=== PATIENT | female | born 1970 | race Caucasian/White ===

== ENCOUNTER → 2020-02-19 10:06 | Outpatient (CLI) | payer BC, SELFPAY | PROVIDERS: PCP Family Medicine; Visit Provider Family Medicine | DX: R55 Syncope and collapse (principal) | CPT/HCPCS: 93225; 93226 ==

== ENCOUNTER → 2020-03-04 10:09 | Outpatient (CLI) | payer BC, SELFPAY ==
[2020-03-04 12:07] LABS: NT Pro Brain Natriuretic Pep. 22.4 pg/mL (0-125)
== END ==
PROVIDERS: Visit Provider Internal Medicine Cardiovascular Disease
DX: R06.00 Dyspnea, unspecified (principal); R42 Dizziness and giddiness; R55 Syncope and collapse; E66.01 Morbid (severe) obesity due to excess calories; F17.200 Nicotine dependence, unspecified, uncomplicated; G47.33 Obstructive sleep apnea (adult) (pediatric); G47.9 Sleep disorder, unspecified; I10 Essential (primary) hypertension; R06.83 Snoring; R40.0 Somnolence; R63.5 Abnormal weight gain
CPT/HCPCS: 36415; 83880

== ENCOUNTER 2021-05-19 09:23 | Emergency (ER) | payer BC, SELFPAY ==
--- NOTE | 2021-05-19 09:29 | XR_ITS ---
PROCEDURE: XR KNEE RT 3V CLINICAL INDICATION: PAIN COMPARISON: No exams were available for comparison FINDINGS: No fracture or dislocation. No lytic or blastic change. There is normal mineralization. There are mild tricompartmental osteoarthritic changes. Other findings:None. IMPRESSION: Osteoarthritis otherwise negative Dictated by: Jameel Grimes MD 05/19/2021 10:01 Jameel Grimes MD in [place] 05/19/2021 10:01
[2021-05-19 10:24] VITALS: BP 130/82; PULSE 101; RESP 18; TEMP 36.7; O2SAT 98; BMI 50.2
--- NOTE | 2021-05-19 10:38 | HMH.EDUTC ---
[facility] [place] Disposition Clinical Impression: Knee sprain Qualifiers: Encounter type: initial encounter Involved ligament of knee: other ligament Laterality: right Qualified Code(s): S83.8X1A - Sprain of other specified parts of right knee, initial encounter Disposition: Home, Self-Care Condition on Discharge: Good Instructions: How to Use an Elastic Bandage-Knee Sprain, DI for Knee Sprain Additional Instructions: *weight bearing as tolerated *RICE, Rest the extremity, Ice 15-20 minutes 3-4 times daily, Compress- wear the frederick wrap as discussed as much as possible to help reduce swelling and pain, Elevate the extremity when at rest *[place]er[place] wrap is for support and help control swelling, use it except in the shower. Be sure that is not to tight but not to loose either *Elevate when resting *Ibuprofen as directed on package every 6-8 hours as needed for pain an inflammation. If need something more can take Tylenol in between doses of Ibuprofen to help Immediately follow up with your family doctor for new or worsening of symptoms, or no noticeable improvement over the next 3-5 days Referrals: Gilmer Romero MD [Primary Care Provider] - As needed Forms: Work/School Release Time of Disposition: 10:47 Medical Decision Making - Se Inquiry Pt receiving controlled substance: No Se was queried for this patient: No Vital Signs: 05/19/21 10:24 05/19/21 11:03 Temperature 98.1 F 98.4 F Temperature Source Oral Oral Pulse Rate 76 Pulse Rate [Right] 101 H Respiratory Rate 18 18 Blood Pressure 132/71 Blood Pressure [Right Arm] 130/82 Blood Pressure Mean [Right Arm] 98 02 Sat by Pulse Oximetry 98 Oxygen Delivery Method Room Air Room Air - Radiology Data #1 Image(s): Knee Image Reviewed: Yes I have reviewed radiologist's interpretation Osteoarthritis otherwise negative [facility] [place] HPI - General Stated complaint: AO [id number] RIGHT KNEE PAIN HOME ACCIDENT Time Seen by Provider: 05/19/21 10:39 Mode of Arrival: Ambulatory Source of Information: Patient Limitations: No Limitations Description of Symptoms (Recalled from Triage Doc. by RN): Patient reports right knee pain. Patient reports she twisted her right knee three days ago. Patient ambulatory back to [facility] room. HEENT Symptoms (Recalled from RN notes): No Resp Symptoms (Recalled from RN notes): No Skin Symptoms (Recalled from RN notes): No MS Symptoms (Recalled from RN notes): Yes Functional Status (Recalled from RN notes): na - History of Present Illness Provider Complaint: Patient state that she twisted her right knee a few weeks ago State that ever since she has been having pain and swelling when she walks or raises her leg State that she come in today to get xray to see if anything may be broken - Related Data Home Medications Medication Instructions Recorded Confirmed Furosemide [Lasix 40mg tab] 40 mg PO DAILY 12/22/17 03/04/20 Albuterol Sulfate [Albuterol 2.5 mg IH DAILY 09/26/19 03/04/20 0.083% 2.5mg/3mL neb] Albuterol Sulfate [Ventolin HFA 1 puff IH DAILY 09/26/19 03/04/20 Inhaler] budesonide-formoterol HFA 160 2 puff INHALATION DAILY g 03/04/20 03/04/20 mcg-4.5 mcg/actuation aerosol inhaler Previous Rx's Medication Instructions Recorded Cyclobenzaprine HCl 5 mg PO Q8H PRN 10 Days #30 tab 12/08/19 [Cyclobenzaprine 5mg Tab] lisinopril 20 mg tablet 20 mg PO DAILY #30 tab 03/04/20 Allergies Allergy/AdvReac Type Severity Reaction Status Date / Time No Known Drug Allergies Allergy Unknown Verified 03/04/20 08:55 [NO KNOWN DRUG ALLERGIES] - Worker's Comp Is this a Worker's Comp case?: No Is this an H Worker's Comp?: No Is this a [place] Worker's Comp?: No [facility] History - Hepatitis A Screen Drug use history?: No High risk sexual behaviors?: No History of sexually transmitted infection?: No Currently employed?: No Childcare worker?: No Do you have indoor plumbing?: Yes Do you have electricity?: Yes A
[2021-05-19 11:03] VITALS: BP 132/71; PULSE 76; RESP 18; TEMP 36.9; O2SAT 96
== END 2021-05-19 11:05 | disposition home or self-care (01) ==
PROVIDERS: Emergency Provider Nurse Practitioner; PCP Family Medicine
DX: S83.8X1A Sprain of other specified parts of right knee, initial encounter (principal); X50.1XXA Overexertion from prolonged static or awkward postures, initial encounter; Y92.019 Unspecified place in single-family (private) house as the place of occurrence of the external cause; I10 Essential (primary) hypertension; J45.909 Unspecified asthma, uncomplicated; F17.210 Nicotine dependence, cigarettes, uncomplicated; Z79.899 Other long term (current) drug therapy
CPT/HCPCS: 73562; 99202; G0463

== ENCOUNTER 2021-10-14 19:27 | Emergency (ER) | payer BC, SELFPAY ==
[2021-10-14 19:29] VITALS: BP 135/98; PULSE 83; RESP 18; TEMP 36.8; O2SAT 97; BMI 59.1
--- NOTE | 2021-10-14 20:13 | CT_ITS ---
PROCEDURE INFORMATION: Exam: CT Abdomen And Pelvis With Contrast Exam date and time: 10/14/2021 8:13 PM Age: 51 years old Clinical indication: Abdominal pain; Localized; Right; Prior surgery; Surgery date: 6+ months; Surgery type: Gb; Additional info: Abd pain ruq and rlq TECHNIQUE: Imaging protocol: Computed tomography of the abdomen and pelvis with contrast. Radiation optimization: All CT scans at this facility use at least one of these dose optimization techniques: automated exposure control; mA and/or kV adjustment per patient size (includes targeted exams where dose is matched to clinical indication); or iterative reconstruction. Contrast material: ISOVUE; Contrast volume: 75 ml; Contrast route: IV; COMPARISON: CR XR LUMBAR SPINE 2-3V 12/08/2019 11:41 AM FINDINGS: Liver: Mild diffuse low-attenuation of the liver. No mass. Gallbladder and bile ducts: Post cholecystectomy change. Pancreas: Normal enhancement. No ductal dilation. Spleen: No splenomegaly. Adrenal glands: No mass. Kidneys and ureters: 9.1 cm left renal cyst. No hydronephrosis. Stomach and bowel: Examination is limited by technique and body habitus. Diverticulosis coli without evidence for diverticulitis. Potential mild induration of the pericecal fat. Appendix: No evidence of appendicitis. Intraperitoneal space: No free air. No significant fluid collection. Vasculature: Mild calcified atherosclerosis. No abdominal aortic aneurysm. Lymph nodes: No enlarged lymph nodes. Urinary bladder: No acute abnormality. Reproductive: No acute abnormality. Bones/joints: No acute fracture. Soft tissues: Suspected mild subcutaneous edema. IMPRESSION: 1. Diverticulosis coli without evidence for diverticulitis. 2. Potential mild induration of the pericecal fat which is difficult to evaluate secondary to technique. Mild colitis should be clinically excluded. If symptoms persist follow-up imaging may be warranted.
[2021-10-14 20:25] LABS: Basophils # 0.1 K/mm3 (0-0.2); Eosinophils # 0.1 K/mm3 (0.0-0.4); Eosinophils % 1.4 % (0.1-12.0); Hematocrit 39.7 % (37.0-47.0); Hemoglobin 12.6 g/dL (12.2-16.2); Lymphocytes # 1.8 K/mm3 (0.7-4.5); Lymphocytes % 22.5 % (10-50); Mean Corpuscular HGB Conc 31.8 g/dL (31.8-35.4); Mean Corpuscular Volume 88.2 fl (81-99); Mean Platelet Volume 10.4 fl (7.4-10.4); Monocytes # 0.6 K/mm3 (0.1-1.0); Monocytes % 7.4 % (1.7-9.3); Neutrophils # 5.4 K/mm3 (1.8-7.8); Neutrophils % 67.7 % (37.0-80.0); Platelet Count 215 K/mm3 (142-424); Red Cell Distribution Width 16.6 % (11.5-17.5)
[2021-10-14 20:29] LABS: Amylase 39 U/L (30-110)
[2021-10-14 20:30] LABS: Alanine Aminotransferase 23 U/L (12-78); Albumin Level 3.8 g/dl (3.5-5.0); Albumin/Globulin Ratio 1.2 (1.1-1.8); Alkaline Phosphatase 89 U/L (38-126); Anion Gap 8.7 mEq/L (5-15); Aspartate Amino Transferase 26 U/L (14-36); Bilirubin,Total 0.8 mg/dl (0.2-1.3); Blood Urea Nitrogen 10 mg/dl (7-17); Calcium 8.8 mg/dl (8.4-10.2); Carbon Dioxide 33 mmol/L (22.0-30.0); Chloride 96 mmol/L (98-107); Creatinine Clearance Estimated 90 mL/min (50-200); Estimated Glomerular Filt Rate 89 ml/min (>60); GFR (African American) 107 ML/MIN (>60); Globulin 3.2 g/dL (1.3-3.2); Glucose 98 mg/dl (74-100); Lipase 31 U/L (23-300); Potassium 3.7 mmoL/L (3.5-5.1); Sodium 134 mmol/L (136-145)
--- NOTE | 2021-10-14 20:33 | HMH.EDNVD ---
ED Disposition Clinical Impression: Sphincter of Oddi dysfunction Abdominal pain Qualifiers: Abdominal location: epigastric Qualified Code(s): R10.13 - Epigastric pain Disposition: Home, Self-Care Condition on Discharge: Good Instructions: DI for Acute Abdominal Pain Additional Instructions: use meds andf call pcp for follow up Prescriptions: Dicyclomine HCl [Bentyl 10mg capsule] 10 mg PO TID #15 cap Transmission Status: Pending to [id number] Referrals: Gilmer Romero MD [Primary Care Provider] - - Critical Care Critical Care Time: No Attestation: On 10/14/21, the high probability of a clinically significant, sudden or life threatening deterioration of the following system(s) required my full and direct attention, intervention and personal management. The time I documented below is in addition to time spent performing reported procedures but includes the following listed in this critical care notation. Medical Decision Making - Medical Records Medical records reviewed: Yes: I reviewed the patient's medical records. - Se Inquiry Pt receiving controlled substance: No Vital Signs: 10/14/21 19:29 Temperature 98.3 F Temperature Source Oral Pulse Rate [Right] 83 Respiratory Rate 18 Blood Pressure [Right Arm] 135/98 H Blood Pressure Mean [Right Arm] 110 Blood Pressure Source [Right Arm] Automatic Cuff 02 Sat by Pulse Oximetry 97 Oxygen Delivery Method Room Air - Lab Data Lab results reviewed: Yes: I reviewed the patient's lab results. Lab Results 10/14/21 19:55: ESR 19 10/14/21 19:55: C-Reactive Protein 59.1 H, Amylase 39, Procalcitonin < 0.030 10/14/21 19:55: WBC 8.0, RBC 4.50, Hgb 12.6, Hct 39.7, MCV 88.2, MCH 28.0, MCHC 31.8, RDW 16.6, Plt Count 215, MPV 10.4, Neut % (Auto) 67.7, Lymph % (Auto) 22.5, [place] % (Auto) 7.4, Eos % (Auto) 1.4, Baso % (Auto) 1.0, Neut # (Auto) 5.4, Lymph # (Auto) 1.8, [place] # (Auto) 0.6, Eos # (Auto) 0.1, Baso # (Auto) 0.1 10/14/21 19:55: Sodium 134 L, Potassium 3.7, Chloride 96 L, Carbon Dioxide 33 H, Anion Gap 8.7, BUN 10, Creatinine 0.70, Estimated Creat Clear 90, Estimated GFR 89, Est GFR ( Amer) 107, Glucose 98, Calcium 8.8, Total Bilirubin 0.8, AST 26, ALT 23, Alkaline Phosphatase 89, Total Protein 7.0, Albumin 3.8, Globulin 3.2, Albumin/Globulin Ratio 1.2, Lipase 31 10/14/21 21:08: Urine Color Straw, Urine Appearance Clear, Urine pH 6.5, Ur Specific [place] <= 1.005, Urine Protein Negative, Urine Glucose (UA) Negative, Urine Ketones Negative, Urine Blood Negative, Urine Nitrate Negative, Urine Bilirubin Negative, Urine Urobilinogen 0.2, Ur Leukocyte Esterase Negative, Ur Squamous Epith Cells 5-10, Amorphous Sediment Trace Result diagrams: 10/14/21 19:55 10/14/21 19:55 Orders (Tests/Meds): ED MEDICATIONS Generic Name Dose Route Start Last Admin Trade Name Freq PRN Reason Stop Dose Admin Sodium Chloride 1,000 mls @ 999 mls/hr 10/14/21 20:15 10/14/21 20:25 Sod Chlor 0.9% 1000ml Bag IV 10/14/21 21:15 999 mls/hr .Q1H1M EDMOND Administration Sodium Chloride 8 ml 10/14/21 20:13 Sodium Chloride 0.9% 10ml Vial IV 11/13/21 20:12 NEEDED PRN dilute pepcid Discontinued Medications Generic Name Dose Route Start Last Admin Trade Name Freq PRN Reason Stop Dose Admin Famotidine 20 mg 10/14/21 20:13 10/14/21 20:25 Famotidine 20mg/2ml Vial IV 10/14/21 20:14 20 mg ONCE ONE Administration Iopamidol 75 ml 10/14/21 20:46 10/14/21 20:49 Iopamidol-370 (76%);100ml Bottle IV 10/14/21 20:47 75 ml ONCE ONE Administration Ketorolac Tromethamine 30 mg 10/14/21 20:13 10/14/21 20:25 Ketorolac 30mg/Ml Vial IV 10/14/21 20:14 30 mg ONCE ONE Administration Metoclopramide HCl 10 mg 10/14/21 20:13 10/14/21 20:25 Metoclopramide Hcl 10mg/2ml Vial IVP 10/14/21 20:14 10 mg ONCE ONE Administration Ondansetron HCl 4 mg 10/14/21 20:13 10/14/21 20:25 Ondansetron 4mg/2ml Vial IV 10/14/21 20:1
[2021-10-14 20:35] LABS: C-Reactive Protein 59.1 mg/L (0-4)
[2021-10-14 20:49] LABS: Procalcitonin < 0.030 ng/mL (0.0-2.0)
[2021-10-14 20:51] LABS: Erythrocyte Sedimentation Rate 19 mm/hr (0-20)
[2021-10-14 21:11] LABS: Microscopic, Urine URINE MICROSCOPIC (MICROSCOPIC)
[2021-10-14 21:16] LABS: Appearance,Urine CLEAR (Clear); Bilirubin,Urine Negative (Negative); Blood, Urine Negative (Negative); Color,Urine STRAW (Yellow); Glucose,Urine (UA) Negative (Negative); Ketones,Urine Negative (Negative); Leukocyte Esterase,Urine Negative (Negative); Nitrate,Urine Negative (Negative); PH,Urine 6.5 (5.0-8.5); Protein,Urine Negative (Negative); Specific Gravity, Urine <= 1.005 (1.005-1.030); Urobilinogen,Urine 0.2 EU/dl (0.2)
[2021-10-14 21:26] LABS: Amorphous Sediment,Urine Trace /lpf
[2021-10-14 21:56] VITALS: BP 130/90; PULSE 80; RESP 20; TEMP 36.8; O2SAT 99
== END 2021-10-14 21:58 | disposition home or self-care (01) ==
PROVIDERS: Emergency Provider Emergency Medicine; PCP Family Medicine
DX: K83.4 Spasm of sphincter of Oddi (principal); I10 Essential (primary) hypertension; J45.909 Unspecified asthma, uncomplicated; F17.210 Nicotine dependence, cigarettes, uncomplicated
CPT/HCPCS: 74177; 80053; 81001; 82150; 83690; 84145; 85025; 85651; 86140; 96365; 96375; 99283; J2405; Q9967

== ENCOUNTER → 2021-12-06 14:56 | Outpatient (CLI) | payer BC, SELFPAY ==
--- NOTE | 2021-12-06 15:00 | US_ITS ---
FINAL REPORT CLINICAL HISTORY: US TV [employer] for Heavy Bleeding FINDINGS: Transvaginal sonographic images of the pelvis were obtained. The uterus is enlarged measuring 10.2 x 5.0 x 5.7 cm. The endometrium measures 11 mm, which is at the upper limits of normal. No uterine mass is identified. The right ovary measures 2.8 cm cm in length and left ovary measures 2.1 cm cm in length. Normal blood flow seen to the ovaries. There is a 1.8 cm presumed right ovarian cyst and a 1.6 cm presumed left ovarian cyst. There is no evidence of free fluid. IMPRESSION: Enlarged uterus. Endometrium measures at the upper limits of normal. Presumed bilateral ovarian cysts. Reviewed, Interpreted and Dictated by Nawaf Yost III, MD Transcribed by Amelia Reilly Authenticated by Nawaf Yost III, MD on 12/06/2021 04:41:46 PM [facility]
== END ==
LOC: RAD 14:57
PROVIDERS: PCP Family Medicine; Visit Provider Nurse Practitioner Obstetrics & Gynecology
DX: N92.0 Excessive and frequent menstruation with regular cycle (principal)
CPT/HCPCS: 76830

== ENCOUNTER 2021-12-21 17:03 | Emergency (ER) | payer BC, SELFPAY ==
--- NOTE | 2021-12-21 17:39 | XR_ITS ---
PROCEDURE INFORMATION: Exam: XR Chest Exam date and time: 12/21/2021 5:37 PM Age: 51 years old Clinical indication: Cough and fever; Patient HX: Smoker, fever; Additional info: Cough, congestion TECHNIQUE: Imaging protocol: XR of the chest. Views: 2 views. COMPARISON: CR XR CHEST 2V 09/26/2019 9:54 AM FINDINGS: Lungs: Unremarkable. No consolidation. Pleural spaces: Unremarkable. No pleural effusion. No pneumothorax. Heart/Mediastinum: Unremarkable. No cardiomegaly. Bones/joints: Unremarkable. IMPRESSION: No acute findings.
--- NOTE | 2021-12-21 18:47 | HMH.EDUTC ---
[facility] [place] Clinical Impression: Strep throat, Bronchitis Disposition: Home, Self-Care Condition on Discharge: Good Instructions: Strep Throat, DI for Strep Throat Additional Instructions: Drink plenty of fluids. Take tylenol or ibuprofen for pain or fever. Take the medications as directed. Follow up with your regular doctor. GO TO THE ER FOR ANY WORSENING SYMPTOMS Throw your tooth brush away and get a new one. Quarantine until you know the results of your covid-19 test. Notify your school or workplace of your results and follow their instructions regarding return to work/school. Don't start the oral steroids until tomorrow, since you had the shot here today. The cough medication (promethazine dm) will make you drowsy, so don't drive or operate heavy machinery after taking it. The pyridium will make your urine turn orange, this is an expected side effect. It will stain your clothes if it comes into contact with them. We will culture the urine. That will tell what bacteria is causing your infection and which antibiotics will treat it best. Sometimes the first antibiotic we prescribe turns out to not work against different bacteria. So, make sure you follow up within 3 days if you are not getting better. Prescriptions: Promethazine/Dextromethorphan [Promethazine-Dm Syrup] 5 ml PO Q6HP PRN #240 ml PRN Reason: Cough Transmission Status: Received by [id number] Amoxicillin/Potassium Clav [Amox-Clav 875-125 mg Tablet] 1 tab PO BID #20 tab Transmission Status: Received by [facility] Benzonatate [Benzonatate 100mg cap] 100 mg PO TIDP PRN #30 cap PRN Reason: Cough Transmission Status: Received by [facility] methylPREDNISolone [Medrol] 4 mg PO DIRECTED 6 Days #21 packet Transmission Status: Received by [facility] Referrals: Mae Johnson APRN [Primary Care Provider] - Forms: Work/School Release Time of Disposition: 19:24 Medical Decision Making - Medical Records Medical records reviewed: No: I reviewed the patient's medical records. - Se Inquiry Pt receiving controlled substance: No Vital Signs: 12/21/21 18:55 12/21/21 19:35 Temperature 97.7 F 97.7 F Temperature Source Oral Pulse Rate 106 H Pulse Rate [Left] 106 H Respiratory Rate 22 Blood Pressure 106/69 L Blood Pressure [Right Arm] 106/69 L Blood Pressure Mean [Right Arm] 81 02 Sat by Pulse Oximetry 96 - Lab Data Lab results reviewed: Yes: I reviewed the patient's lab results. Lab Results 12/21/21 18:44: Influenza Type A Ag Negative, Influenza Type B Ag Negative 12/21/21 18:45: Group A Strep Rapid Positive A Orders (Tests/Meds): ED MEDICATIONS Discontinued Medications Generic Name Dose Route Start Last Admin Trade Name Jeronimo PRN Reason Stop Dose Admin Ceftriaxone Sodium 1 gm 12/21/21 19:22 12/21/21 19:34 Ceftriaxone 1gm Vial IM 12/21/21 19:23 1 gm ONCE ONE Administration Lidocaine HCl 0 ml 12/21/21 19:22 12/21/21 19:34 Lidocaine 1% 5ml Pf Vial IM 12/21/21 19:23 2 ml ONCE ONE Administration Methylprednisolone Sodium Succinate 125 mg 12/21/21 19:22 12/21/21 19:34 Methylprednisolone Sod Succ 125mg Vial IM 12/21/21 19:23 125 mg ONCE ONE Administration [facility] [place] - General Stated complaint: tight chest, possible pneumona Time Seen by Provider: 12/21/21 18:47 - History of Present Illness Provider Complaint: She c/o cough and congestion and feeling bad for the past 1 week. - Related Data Home Medications Medication Instructions Recorded Confirmed Furosemide [Lasix 40mg tab] 40 mg PO DAILY 12/22/17 12/16/21 Albuterol Sulfate [Albuterol 2.5 mg IH DAILY 09/26/19 12/16/21 0.083% 2.5mg/3mL neb] Albuterol Sulfate [Ventolin HFA 1 puff IH DAILY 09/26/19 12/16/21 Inhaler] aspirin 81 mg tablet,delayed 81 mg PO DAILY 12/02/21 12/16/21 release escitalopram oxalate 10 mg table
[2021-12-21 18:55] VITALS: BP 106/69; PULSE 106; RESP 22; TEMP 36.5; O2SAT 96; BMI 57.7
[2021-12-21 18:58] LABS: Strep Scrn Group A (Rapid) Positive (Negative)
[2021-12-21 19:07] LABS: UTC Influenza A Antigen Negative (Negative); UTC Influenza B Antigen Negative (Negative)
[2021-12-21 19:35] VITALS: BP 106/69; PULSE 106; RESP 22; TEMP 36.5
== END 2021-12-21 19:49 | disposition home or self-care (01) ==
PROVIDERS: Emergency Provider Nurse Practitioner Family; PCP Nurse Practitioner Family
DX: J02.0 Streptococcal pharyngitis (principal); J20.9 Acute bronchitis, unspecified; J45.909 Unspecified asthma, uncomplicated; I10 Essential (primary) hypertension; F17.210 Nicotine dependence, cigarettes, uncomplicated
CPT/HCPCS: 71046; 87430; 87804; 96372; 99213; G0463; J0696

== ENCOUNTER → 2022-01-07 10:56 | Outpatient (CLI) | payer BC, SELFPAY ==
[2022-01-07 11:32] LABS: Basophils # 0.1 K/mm3 (0-0.2); Basophils % 0.9 % (0.1-2.0); Eosinophils # 0.1 K/mm3 (0.0-0.4); Eosinophils % 1.5 % (0.1-12.0); Hematocrit 45.3 % (37.0-47.0); Hemoglobin 14.2 g/dL (12.2-16.2); Lymphocytes # 1.6 K/mm3 (0.7-4.5); Lymphocytes % 23.7 % (10-50); Mean Corpuscular HGB Conc 31.3 g/dL (31.8-35.4); Mean Corpuscular Hemoglobin 27.8 pg (27.0-31.2); Mean Corpuscular Volume 89.1 fl (81-99); Mean Platelet Volume 10.1 fl (7.4-10.4); Monocytes # 0.5 K/mm3 (0.1-1.0); Monocytes % 7.4 % (1.7-9.3); Neutrophils # 4.4 K/mm3 (1.8-7.8); Neutrophils % 66.5 % (37.0-80.0); Platelet Count 226 K/mm3 (142-424); Red Blood Count 5.09 M/mm3 (4.20-5.40); Red Cell Distribution Width 16.3 % (11.5-17.5); White Blood Count 6.5 K/mm3 (4.8-10.8)
[2022-01-07 12:13] LABS: Anion Gap 6.3 mEq/L (5-15); Blood Urea Nitrogen 10 mg/dl (7-17); Calcium 8.5 mg/dl (8.4-10.2); Carbon Dioxide 32 mmol/L (22.0-30.0); Chloride 101 mmol/L (98-107); Estimated Glomerular Filt Rate 131 ml/min (>60); GFR (African American) 158 ML/MIN (>60); Glucose 85 mg/dl (74-100); Potassium 4.3 mmoL/L (3.5-5.1); Sodium 135 mmol/L (136-145)
[2022-01-09 13:21] LABS: HCG Qualitative, Serum Negative (Negative)
== END ==
PROVIDERS: PCP Family Medicine; Visit Provider Nurse Practitioner Obstetrics & Gynecology
DX: Z01.818 Encounter for other preprocedural examination (principal); N92.0 Excessive and frequent menstruation with regular cycle; Z11.52 Encounter for screening for COVID-19
CPT/HCPCS: 36415; 80048; 84703; 85025; C9803; U0003; U0005

== ENCOUNTER 2022-01-10 06:08 | Day surgery (SDC) | payer BC, SELFPAY ==
[2022-01-09 12:17] VITALS: BMI 57.4
[2022-01-10] VITALS (11 sets, daily range): BP systolic 117–161; BP diastolic 67–97; PULSE 68–88; RESP 12–18; TEMP 36.5–36.6; O2SAT 94–98
--- NOTE | 2022-01-10 07:06 | HMH.ANESCL ---
[facility] Anesthesia Checklist - Patient Identification Patient Identification: Arm Band - Structural Data Admitted From: Home Planned Operative Procedure/s: Hyst/D & C/ Novasure Consent for Planned Operative Procedure(s) Verified: Yes - NPO Status Verified Time NPO: 00:00 - Additional verifications Anesthesia Reactions: No Hx Blood Transfusions: No Blood Transfusion Reaction: No - Airway Assessment C-Spine Mobility Assessed: Yes TMJ Mobility Assessed: Yes Dentition: Dentures-good fit - Neurological Assessment Level of Consciousness: Awake Hx Seizures: No Numbness or tingling in extremities: No - Anesthesia Plan Anesthesia Risk discussed: Yes Anesthesia Plan: Verified ASA Class: II Anesthesia Type: General [facility] History I have reviewed the patient's past medical history: Yes Medical History: Reports:: Asthma, Hypertension Denies:: Cancer, Diabetes Mellitus Type 1, Diabetes Mellitus Type 2, Internal Pacemaker, MRSA, Seizures *Have you ever received a pneumonia vaccine?: Yes *Have you received a flu vaccine this season?: Yes Other Medical History: Reports: Arthritis, Other. Denies: Blood Transfusion Reaction Anesthesia experience/problems:: None Other Surgeries: Yes: No Previous Surgery. No: Pacemaker Amputation: No Fractures: No - *Social History Last grade of school completed: Advanced degree Smoking Status: Current every day smoker Tobacco Type: cigarettes # Packs/Day (cigarettes): 1 Alcohol Intake: never Alcohol Intake Frequency:: other Substance Use Type: denies use *Occupational Status:: employed Housing: house Household Members: significant other *Travel in the last 8 weeks: None Family Hx:: No significant family history REEL MAN history: Abnormal Uterine Bleeding
--- NOTE | 2022-01-10 07:55 | P.OP_ITS ---
Date of procedure: 01/10/22 Pre-op Diagnosis:: Menorrhagia Post-op Diagnosis:: Menorrhagia Procedure performed:: Hysteroscopy, dilation and curettage, NovaSure ablation Surgeon:: Perez Fong MD SPECTACLE TRUER:: Ellie Jackson Anesthesia: LMA Estimated blood loss (mL): 50 Clinical Note:: She is a 51-year-old lady who complains of extremely heavy periods. She had an endometrial ablation that was negative for hyperplasia or endometrial carcinoma. As result of that she is offered hysteroscopy, D&C and NovaSure ablation. Operative findings:: She had an anteverted uterus that sounded to 9 cm. The endometrial cavity appeared lush but otherwise normal. There were no polyps or any other abnormalities. The length of the endometrial cavity was 6.5 cm and the width was 4.6 cm. Operative note:: She was taken to the operating room where LMA anesthesia was found be adequate. She was prepped and draped in the normal sterile fashion in the lithotomy position. A weighted speculum was placed in the vagina and the anterior lip of the cervix was grasped with a tenaculum. The cervix was then dilated to approximately 6 mm. I then inserted a hysteroscope into the uterine cavity and the findings were as previously dictated. I then performed a gentle curettage with a medium curette. I then sounded the uterus and determine the length of the uterus. I then inserted the NovaSure device and determine the width of the endometrial cavity. The length of the endometrial cavity was 6.5 cm and the width was 4.6 cm. This was placed into the NovaSure device. I then ran the device through its program. I further inspected the endometrial cavity and was found to be completely charred. I then injected 20 cc of 0.5% ropivacaine at the 3:00, 5:00, 7:00, and 9:00 positions of the cervix. She tolerated procedure well and was taken to the recovery room in excellent condition. All sponge and instrument counts were correct. The estimated blood loss was less than 50 cc. Condition: stable Disposition: PACU Specimens:: Endometrial curettings Complications:: None
--- NOTE | 2022-01-10 08:01 | HMH.ANESI ---
[facility] [place] Anesthesia Record Part I Intake, IV Amount: 500 Estimated blood loss (mL): 50 Urine output (mL): 0 Blood Pressure: 146/97 SaO2: 94 Pulse Rate: 71 Respiratory Rate: 13 Temperature: 97.7 F Patient is:: Drowsy, Oral/Nasal airway Stable to PACU at:: 07:59
--- NOTE | 2022-01-10 08:05 | PC.NURSE ---
Pt arrived to PACU with oral airway noted, patients airway remains patent.
--- NOTE | 2022-01-10 08:11 | PC.NURSE ---
Oral airway removed, airway remains patent.
--- NOTE | 2022-01-10 11:05 | P.PN_ITS ---
[facility] Anesthesia Record Part II Discharge Time: 08:29 Destination: Surgical Day Care (OP Surgery) PACU nurse assessment reviewed?: Yes Patient Condition:: Good Anesthesia Complications:: None Swallowing reflex intact?: Yes Cyanosis?: No Blood Pressure: 155/89 Pulse Rate: 69 Temperature: 97.7 F Mental Status: Alert & Oriented Pain level:: 0 Nausea and/or vomitting:: None Intake, IV Amount: 0
== END 2022-01-10 09:05 | disposition home or self-care (01) ==
LOC: OR 06:09
PROVIDERS: PCP Family Medicine; Visit Provider Nurse Practitioner Obstetrics & Gynecology
PROC: 0U5B8ZZ Destruction of Endometrium, Via Natural or Artificial Opening Endoscopic (ICD-10-PCS; CPT 58563; principal; 2022-01-10 07:30)
DX: N92.0 Excessive and frequent menstruation with regular cycle (principal); N85.2 Hypertrophy of uterus; J45.909 Unspecified asthma, uncomplicated; I10 Essential (primary) hypertension; M19.90 Unspecified osteoarthritis, unspecified site; Z72.0 Tobacco use; Z79.82 Long term (current) use of aspirin; Z79.899 Other long term (current) drug therapy
CPT/HCPCS: 58563; 96374; J2405

== ENCOUNTER 2022-01-16 05:07 | Inpatient (IN) | payer BC, SELFPAY ==
[2022-01-16] VITALS (19 sets, daily range): BP systolic 102–153; BP diastolic 56–88; PULSE 42–90; RESP 16–30; TEMP 36.4–37.1; O2SAT 88–98; BMI 53.2; BMI 56.0
--- NOTE | 2022-01-16 05:20 | ECG_ITS ---
APPROVED REPORT Exam: Resting ECG HR:88 bpm ECG Measurements Heart Rate 88 AXES AK 154 P 79 QRSd 100 QRS 78 QT 377 T 76 QTc 423 Conclusion SINUS RHYTHM WITH PVCs in a bigeminy pattern Left atrial abnormality Late R wave progression ABNORMAL RHYTHM ECG UNCONFIRMED REPORT Electronically signed by : Gilmer Ferrer MD 01/19/2022 08:11:12
--- NOTE | 2022-01-16 05:56 | CT_ITS ---
PROCEDURE INFORMATION: Exam: CTA Chest With Contrast Exam date and time: 01/16/2022 6:37 AM Age: 51 years old Clinical indication: Shortness of breath; Additional info: SOA TECHNIQUE: Imaging protocol: Computed tomographic angiography of the chest with contrast. 3D rendering (Not supervised by radiologist): MIP and/or 3D reconstructed images were created by the technologist. Radiation optimization: All CT scans at this facility use at least one of these dose optimization techniques: automated exposure control; mA and/or kV adjustment per patient size (includes targeted exams where dose is matched to clinical indication); or iterative reconstruction. Contrast material: ISOVUE 370; Contrast volume: 70 ml; Contrast route: INTRAVENOUS (IV); COMPARISON: CR XR CHEST 2V 12/21/2021 5:37 PM FINDINGS: Pulmonary arteries: The peripheral pulmonary arteries are suboptimally evaluated/opacified. Otherwise, no evidence of a pulmonary embolus. Aorta: No aortic aneurysm. No aortic dissection. Lungs: Small calcified granuloma in the left lung. No focal consolidation. Pleural spaces: No pneumothorax. No pleural eff. Heart: Borderline cardiomegaly. There is slight reflux of contrast into the hepatic veins and IVC, which could suggest some degree of heart failure. Lymph nodes: Calcified right hilar lymph nodes, compatible with old granulomatous disease. Gallbladder and bile ducts: Cholecystectomy. Adrenal glands: Mild nonspecific thickening of the adrenal glands. Kidneys and ureters: Partially imaged left renal cyst measuring up to 8.2 x 7.2 cm. Bones/joints: Degenerative changes of the spine. Soft tissues: Unremarkable. Other findings: usion. IMPRESSION: 1. No evidence of a pulmonary embolus or active pulmonary process. 2. Partially imaged left renal cyst measuring up to 8.2 x 7.2 cm. 3. Old granulomatous disease. 4. There is slight reflux of contrast into the hepatic veins and IVC, which could suggest some degree of heart failure. COMMENTS: Consistent with the [employer]'s Incidental Findings Committee white paper (J Am Yannick Radiol 2018): Any incidental renal lesion less than 1 cm or classified as too small to characterize, or any incidental cystic renal lesion characterized as simple-appearing, is likely benign. No follow-up imaging is recommended for these lesions per consensus recommendations based on imaging criteria.
--- NOTE | 2022-01-16 05:57 | XR_ITS ---
PROCEDURE INFORMATION: Exam: XR Chest Exam date and time: 01/16/2022 6:38 AM Age: 51 years old Clinical indication: Shortness of breath; Patient HX: SOA, chest pain TECHNIQUE: Imaging protocol: XR of the chest. Views: 2 views. COMPARISON: CT ANGIO CHEST PE PROTOCOL 01/16/2022 6:37 AM FINDINGS: Lungs: Unremarkable. No consolidation. Pleural spaces: Unremarkable. No pleural effusion. No pneumothorax. Heart/Mediastinum: Unremarkable. No cardiomegaly. Bones/joints: Mild spondylosis. IMPRESSION: No acute process.
[2022-01-16 06:06] LABS: Basophils # 0.1 K/mm3 (0-0.2); Basophils % 1.3 % (0.1-2.0); Eosinophils # 0.2 K/mm3 (0.0-0.4); Hematocrit 43.2 % (37.0-47.0); Hemoglobin 13.8 g/dL (12.2-16.2); Lymphocytes # 1.6 K/mm3 (0.7-4.5); Lymphocytes % 27.7 % (10-50); Mean Corpuscular HGB Conc 31.8 g/dL (31.8-35.4); Mean Corpuscular Hemoglobin 27.9 pg (27.0-31.2); Mean Corpuscular Volume 87.7 fl (81-99); Monocytes # 0.4 K/mm3 (0.1-1.0); Monocytes % 6.6 % (1.7-9.3); Neutrophils # 3.5 K/mm3 (1.8-7.8); Neutrophils % 61.4 % (37.0-80.0); Platelet Count 196 K/mm3 (142-424); Red Blood Count 4.93 M/mm3 (4.20-5.40); Red Cell Distribution Width 16.5 % (11.5-17.5); White Blood Count 5.8 K/mm3 (4.8-10.8)
[2022-01-16 06:10] LABS: Lipase 47 U/L (23-300)
[2022-01-16 06:11] LABS: Alanine Aminotransferase 24 U/L (12-78); Albumin Level 3.4 g/dl (3.5-5.0); Alkaline Phosphatase 102 U/L (38-126); Amylase 53 U/L (30-110); Anion Gap 6.1 mEq/L (5-15); Aspartate Amino Transferase 27 U/L (14-36); Bilirubin,Total 0.4 mg/dl (0.2-1.3); Blood Urea Nitrogen 14 mg/dl (7-17); Calcium 8.3 mg/dl (8.4-10.2); Carbon Dioxide 32 mmol/L (22.0-30.0); Chloride 103 mmol/L (98-107); Creatinine Clearance Estimated 94 mL/min (50-200); Estimated Glomerular Filt Rate 89 ml/min (>60); GFR (African American) 107 ML/MIN (>60); Globulin 3.3 g/dL (1.3-3.2); Glucose 100 mg/dl (74-100); Potassium 4.1 mmoL/L (3.5-5.1); Sodium 137 mmol/L (136-145); Total Protein,Serum 6.7 g/dl (6.3-8.2)
[2022-01-16 06:16] LABS: C-Reactive Protein 21.3 mg/L (0-4)
--- NOTE | 2022-01-16 06:23 | HMH.EDSOB ---
ED Disposition Clinical Impression: Chest pain Qualifiers: Chest pain type: precordial pain Qualified Code(s): R07.2 - Precordial pain Obesity Qualifiers: Obesity type: due to excess calories Obesity classification: adult class 3 (BMI >= 40) Serious obesity comorbidity presence: with serious comorbidity Body mass index: BMI 50.0-59.9 Qualified Code(s): E66.01 - Morbid (severe) obesity due to excess calories Disposition: Admitted As Inpatient Condition on Discharge: Good Referrals: Prosper Rosen MD [Primary Care Provider] - - Critical Care Critical Care Time: No Attestation: On 01/16/22, the high probability of a clinically significant, sudden or life threatening deterioration of the following system(s) required my full and direct attention, intervention and personal management. The time I documented below is in addition to time spent performing reported procedures but includes the following listed in this critical care notation. Medical Decision Making - Medical Records Medical records reviewed: Yes: I reviewed the patient's medical records. - Se Inquiry Pt receiving controlled substance: No Vital Signs: 01/16/22 05:08 01/16/22 05:45 01/16/22 06:00 Temperature 98.7 F Temperature Source Oral Pulse Rate 68 42 L Pulse Rate [Left] 42 L Respiratory Rate 16 Blood Pressure 111/70 Blood Pressure [Right Arm] 129/70 Blood Pressure Mean [Right Arm] 89 Blood Pressure Source Blood Pressure Position 02 Sat by Pulse Oximetry 96 95 96 Oxygen Delivery Method Room Air Room Air Oxygen Flow Rate (LPM) 01/16/22 07:15 01/16/22 08:00 01/16/22 08:05 Temperature Temperature Source Pulse Rate 75 88 82 Pulse Rate [Left] Respiratory Rate 28 H Blood Pressure 131/64 128/88 106/69 L Blood Pressure [Right Arm] Blood Pressure Mean [Right Arm] Blood Pressure Source Blood Pressure Position Sitting Sitting 02 Sat by Pulse Oximetry 95 88 L 96 Oxygen Delivery Method Room Air Room Air Nasal Cannula Oxygen Flow Rate (LPM) 2 01/16/22 09:01 01/16/22 09:31 01/16/22 10:30 Temperature Temperature Source Pulse Rate 83 90 84 Pulse Rate [Left] Respiratory Rate 22 18 24 Blood Pressure 123/85 102/71 L 120/68 Blood Pressure [Right Arm] Blood Pressure Mean [Right Arm] Blood Pressure Source Automatic Cuff Automatic Cuff Blood Pressure Position Sitting Sitting 02 Sat by Pulse Oximetry 98 97 96 Oxygen Delivery Method Nasal Cannula Nasal Cannula Room Air Oxygen Flow Rate (LPM) 2 2 01/16/22 11:05 01/16/22 11:43 01/16/22 12:30 Temperature Temperature Source Pulse Rate 87 74 76 Pulse Rate [Left] Respiratory Rate 23 25 H 19 Blood Pressure 144/56 H 122/67 119/79 Blood Pressure [Right Arm] Blood Pressure Mean [Right Arm] Blood Pressure Source Automatic Cuff Automatic Cuff Automatic Cuff Blood Pressure Position Sitting Sitting Sitting 02 Sat by Pulse Oximetry 96 97 96 Oxygen Delivery Method Nasal Cannula Nasal Cannula Nasal Cannula Oxygen Flow Rate (LPM) 2 2 2 - Lab Data Lab results reviewed: Yes: I reviewed the patient's lab results. Lab Results 01/16/22 05:30: WBC 5.8, RBC 4.93, Hgb 13.8, Hct 43.2, MCV 87.7, MCH 27.9, MCHC 31.8, RDW 16.5, Plt Count 196, MPV 10.0, Neut % (Auto) 61.4, Lymph % (Auto) 27.7, Divide % (Auto) 6.6, Eos % (Auto) 3.0, Baso % (Auto) 1.3, Neut # (Auto) 3.5, Lymph # (Auto) 1.6, Divide # (Auto) 0.4, Eos # (Auto) 0.2, Baso # (Auto) 0.1, ESR 16 01/16/22 05:30: Sodium 137, Potassium 4.1, Chloride 103, Carbon Dioxide 32 H, Anion Gap 6.1, BUN 14, Creatinine 0.70, Estimated Creat Clear 94, Estimated GFR 89, Est GFR ( Amer) 107, Glucose 100, Calcium 8.3 L, Total Bilirubin 0.4, AST 27, ALT 24, Alkaline Phosphatase 102, Troponin I < 0.01, C-Reactive Protein 21.3 H, Total Protein 6.7, Albumin 3.4 L, Globulin 3.3 H, Albumin/Globulin Ratio 1.0 L, Amylase 53, Procalcitonin < 0.030 01/16/22 05:30: Lipase 47 01/16/22 05:30: Serum HCG, Qual Nega
[2022-01-16 06:32] LABS: Erythrocyte Sedimentation Rate 16 mm/hr (0-20)
[2022-01-16 06:33] LABS: Procalcitonin < 0.030 ng/mL (0.0-2.0); Troponin I < 0.01 ng/ml (0.00-0.034)
--- NOTE | 2022-01-16 06:36 | PC.NURSE ---
to rad via wc
[2022-01-16 06:39] LABS: HCG Qualitative, Serum Negative (Negative)
--- NOTE | 2022-01-16 06:51 | PC.NURSE ---
PT BACK FROM RADIOLOGY
[2022-01-16 06:57] LABS: Microscopic, Urine URINE MICROSCOPIC (MICROSCOPIC)
[2022-01-16 07:08] LABS: Appearance,Urine CLEAR (Clear); Bilirubin,Urine Negative (Negative); Blood, Urine TRACE-I (Negative); Color,Urine YELLOW (Yellow); Glucose,Urine (UA) Negative (Negative); Ketones,Urine Negative (Negative); Leukocyte Esterase,Urine Negative (Negative); Nitrate,Urine Negative (Negative); PH,Urine 7.5 (5.0-8.5); Protein,Urine Negative (Negative); Urobilinogen,Urine 0.2 EU/dl (0.2)
--- NOTE | 2022-01-16 07:53 | PC.NURSE ---
contacted radiology to check on status of CT reading, spoke with Shankar.
--- NOTE | 2022-01-16 08:31 | CA_ITS ---
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 8.60 mmHg Mitral Valve MV E Max Harshad. 98.00 (40-130 cm/s) MV A Velocity 76.00 (40-130 cm/s) E/A Ratio 1.29 MV Decel. Time 187.00 (160-240 ms) MV PHT 55.00 ms Pulmonary Valve PV Peak Velocity 76.00 (50-150 cm/s) Tricuspid Valve TR P. Velocity 297.00 cm/s RAP Estimate 10.00 mmHg RVSP 45.20 mmHg Left Ventricle Technically very difficult study because of the patient factors and poor acoustic windows. Left atrium is mildly enlarged, left ventricle is normal size, mild concentric left ventricular hypertrophy, estimated ejection fraction 55% with no regional wall motion abnormality, diastolic parameters are inconclusive in the study. Right Ventricle Right atrium and right ventricle are mildly enlarged with normal contractility. Aortic Valve Aortic valve is minimally thickened and fibrosed there is no aortic stenosis or aortic insufficiency. Mitral Valve Mitral valve grossly normal, there is mild mitral regurgitation. Tricuspid Valve Tricuspid valve grossly normal, there is mild tricuspid regurgitation, calculated right ventricular systolic pressure is 45 mmHg. Pulmonic Valve Pulmonic valve is poorly visualized. Great Vessels Aortic root is normal size. Inferior vena cava is poorly visualized. Pericardium No significant pericardial effusion noted. Conclusion 1. Biatrial enlargement, normal left ventricular size, mild concentric left ventricular hypertrophy, estimated ejection fraction 55% with no regional wall motion abnormality, diastolic parameters are inconclusive. 2. Mildly enlarged right ventricle with normal contractility. 3. Mild mitral and tricuspid regurgitation, calculated right ventricular systolic pressure is 45 mmHg. 4. No significant pericardial effusion. 5. Inferior vena cava is poorly visualized. Electronically signed by : Andrzej Tomas MD 01/16/2022 21:05:12
--- NOTE | 2022-01-16 08:45 | PC.NURSE ---
UPDATED PT ON PLAN OF CARE
[2022-01-16 09:02] LABS: NT Pro Brain Natriuretic Pep. 200 pg/mL (0-125)
[2022-01-16 09:08] LABS: Troponin I < 0.01 ng/ml (0.00-0.034)
--- NOTE | 2022-01-16 09:25 | PC.NURSE ---
Emely Perales APRN will be down for a consult once she is finished on the floor
--- NOTE | 2022-01-16 09:27 | PC.NURSE ---
ANGEL LUIS Peña at
--- NOTE | 2022-01-16 10:19 | PC.NURSE ---
Went in to update pt on POC and that we were still waiting on cardiology. Pt sleeping.
--- NOTE | 2022-01-16 11:18 | PC.NURSE ---
SPOKE WITH [facility] SHE STATES SHE WILL SEE PT IN ED APPROX 30MINS
--- NOTE | 2022-01-16 11:28 | PC.NURSE ---
Dr. Vázquez called and was given an update on patient
--- NOTE | 2022-01-16 11:57 | PC.NURSE ---
Addendum entered by Laney Cisneros 01/16/22 11:58: CY Han with Cardiology at Original Note: GASTON Han in cardiology at [facility]
[2022-01-16 12:03] LABS: Troponin I < 0.01 ng/ml (0.00-0.034)
[2022-01-16 12:09] LABS: Coronavirus 19, PCR Not Detected (NotDetected); Influenza A, PCR Not Detected (NotDetected); Influenza B, PCR Not Detected (NotDetected)
--- NOTE | 2022-01-16 12:54 | PC.NURSE ---
ATTEMPTED TO CALL REPORT NURSE WILL HAVE TO RETURN CALL
--- NOTE | 2022-01-16 13:07 | PC.NURSE ---
REPORT CALLED TO FLOOR
--- NOTE | 2022-01-16 13:18 | PC.NURSE ---
ANGEL LUIS Rocha is taking patient up to second floor
--- NOTE | 2022-01-16 13:20 | HMH.CNCARD ---
History of Present Illness Consult date: 01/16/22 Requesting physician: Aren Vázquez Consult reason: chest pain, shortness of breath Chief complaint: chest pain and SOA History of present illness: This is a 51-year-old white female who presented to the emergency department complaints of shortness of breath and chest pain. She states that her shortness of breath started yesterday with exertion and at rest. She states that she just did not feel well so she went on to sleep and when she woke up to go to work this morning her shortness of breath had significantly worsened. She states that she is having severe shortness of breath with very minimal exertion. It is associated with pressure in her chest and feels like she has a truck sitting on her chest. This chest pain does not radiate she states that she is unable to lie flat due to her shortness of breath. She states the pressure and heaviness in her chest is severe as well. She has some associated nausea and diaphoresis. She denies any vomiting. The patient states that she feels a little better since being in the hospital but still feels really short of breath and as if she is having heaviness in her chest. She is ruled out for an CA. He has no known heart disease. She did have a recent gynecological surgery. CTA of her chest was negative for a PE. She denies any fever, chills, vomiting, diarrhea. She states that when she checked her pulse at home it was running anywhere from the 40s to the 80s and her oxygen saturation was anywhere from 81-91%. [facility] History I have reviewed the patient's past medical history: Yes Medical History: Reports:: Asthma, Hypertension Denies:: Cancer, Diabetes Mellitus Type 1, Diabetes Mellitus Type 2, Internal Pacemaker, MRSA, Seizures *Have you ever received a pneumonia vaccine?: Yes *Have you received a flu vaccine this season?: Yes Other Medical History: Reports: Arthritis, Other. Denies: Blood Transfusion Reaction Other Surgeries: Yes: No Previous Surgery. 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 Bleeding Meds Home Medications Medication Instructions Recorded Confirmed Type Furosemide [Lasix 40mg tab] 40 mg PO DAILY 12/22/17 01/16/22 History Albuterol Sulfate [Albuterol 2.5 mg IH DAILY 09/26/19 01/16/22 History 0.083% 2.5mg/3mL neb] aspirin 81 mg tablet,delayed 81 mg PO DAILY 12/02/21 01/16/22 History release escitalopram oxalate 10 mg tablet 10 mg PO DAILY tab 12/02/21 01/16/22 History hydroxychloroquine 200 mg tablet 200 mg PO DAILY tab 12/02/21 01/16/22 History meloxicam 15 mg tablet 15 mg PO DAILY tab 12/02/21 01/16/22 History Oxycodone HCl/Acetaminophen 1 tab PO Q4-6H PRN #6 tab 01/10/22 01/16/22 Rx [Percocet 5/325mg tablet] Allergies Allergy/AdvReac Type Severity Reaction Status Date / Time No Known Drug Allergies Allergy Unknown Verified 01/09/22 12:15 [NO KNOWN DRUG ALLERGIES] Exam Vital signs and Labs for Last 24 Hours: Temp Pulse Resp BP Pulse Ox 98.7 F 76 19 119/79 96 01/16/22 05:08 01/16/22 12:30 01/16/22 12:30 01/16/22 12:30 01/16/22 12:30 Laboratory Results - last 24 hr 01/16/22 05:30: WBC 5.8, RBC 4.93, Hgb 13.8, Hct 43.2, MCV 87.7, MCH 27.9, MCHC 31.8, RDW 16.5, Plt Count 196, MPV 10.0, Neut % (Auto) 61.4, Lymph % (Auto) 27.7, Story % (Auto) 6.6, Eos % (Auto) 3.0, Baso % (Auto) 1.3, Neut # (Auto) 3.5, Lymph # (Auto) 1.6, Story # (Auto) 0.4, Eos # (Auto) 0.2, Baso # (Auto) 0.1, ESR 16 01/16/22 05:30: Sodium 137, Potassium 4.1, Chloride 103, Carbon Dioxide 32 H, Anion Gap 6.1,
--- NOTE | 2022-01-16 13:56 | HMH.PHAINT ---
home medication list verified using list from [facility]
--- NOTE | 2022-01-16 13:58 | HMH.PHAVTE ---
[facility] Pharmacy VTE Monitoring - Patient Demographics Admission date: 01/16/22 Report Date: 01/16/22 Time: 13:58 Allergies/Adverse Reactions: Patient Allergies No Known Drug Allergies [NO KNOWN DRUG ALLERGIES] Allergy (Unknown, Verified 01/09/22 12:15) Height: 1.68 m Weight: 157.425 kg Patient Problems: Current Active Problems Chest pain (Acute) Obesity (Acute) CHF (congestive heart failure) (Acute) Shortness of breath (Acute) Edema (Acute) Pulmonary hypertension (Acute) NIKKI (obstructive sleep apnea) (Acute) Morbid obesity (Acute) HTN (hypertension) (Acute) - VTE Risk Labs: VTE Related Lab Results Hgb 13.8 g/dL (12.2-16.2) 01/16/22 05:30 Hct 43.2 % (37.0-47.0) 01/16/22 05:30 Plt Count 196 K/mm3 (142-424) 01/16/22 05:30 BUN 14 mg/dl (7-17) 01/16/22 05:30 Creatinine 0.70 mg/dl (0.52-1.04) 01/16/22 05:30 Estimated Creat Clear 94 mL/min (50-200) 01/16/22 05:30 Clinical Trial Participant: No - Prophylaxis VTE Prophylaxis Ordered?: Yes Types of VTE Prophylaxis: TEDS Knee High
--- NOTE | 2022-01-16 16:19 | HMH.HP ---
*Admission Date: 01/16/22 <CamargoBeronicaMariana 01/16/22 16:40> *Chief complaint: Shortness of breath <CamargoMariana 01/16/22 16:40> *History of present illness: Ms. Galindo is a 51-year-old female with history of asthma and lupus who presented to [facility] emergency room with shortness of breath and chest discomfort. She stated that this shortness of breath began yesterday with exertion and at rest. She just did not feel well so she went on to bed and when she awakened this morning to get ready for work her shortness of breath was worse and associated with chest heaviness like a truck sitting on her chest. She had no radiation and experienced no vomiting although she states she was nauseated. She also experienced some diaphoresis. She has been seen by cardiology and has received a dose of Lasix. She is feeling somewhat better. She has been ruled out for an OK. To note she did have a uterine ablation last week. She had a CTA of her chest which was negative for PE. She denies having any fever or chills, vomiting or diarrhea. With her shortness of breath this a.m. her heart rate was running 40-80/min with a pulse oximetry showing 81 to 91% O2 sats. BNP was noted to be 200. CBC was normal. Electrolytes were satisfactory with slightly elevated CO2 at 32. Troponin I was normal x2. She did receive a DuoNeb treatment, aspirin, nitroglycerin ointment. At the time of this exam patient denies shortness of breath and chest discomfort. She is watching TV. <Mariana Camargo 01/16/22 16:40> [facility] History Medical History: Reports:: Asthma, Hypertension Denies:: Cancer, Diabetes Mellitus Type 1, Diabetes Mellitus Type 2, Gastroesophageal Reflux Disease(GERD), Home Oxygen, Internal Pacemaker, MRSA, Seizures <Mariana Camargo 01/16/22 16:40> *Have you ever received a pneumonia vaccine?: Yes <Mariana Camargo 01/16/22 16:40> *Have you received a flu vaccine this season?: Yes <Mariana Camargo 01/16/22 16:40> Other Medical History: Reports: Arthritis, Other (Lupus). Denies: Blood Transfusion Reaction <Mariana Camargo 01/16/22 16:40> Other Surgeries: Yes: Cholecystectomy. No: Pacemaker <CamargoMariana clifton 01/16/22 16:40> Amputation: No <CamargoMariana 01/16/22 16:40> Fractures: No <CamargoMariana 01/16/22 16:40> Comment: Uterine ablation 1 week ago <CamargoMariana clifton 01/16/22 16:40> - *Social History Smoking Status: Current every day smoker <CamargoMariana clifton 01/16/22 16:40> Tobacco Type: cigarettes <CamargoMariana - 01/16/22 16:40> # Packs/Day (cigarettes): 1 <Mariana Camargo 01/16/22 16:40> Alcohol Intake: never <Mariana Camargo 01/16/22 16:40> Alcohol Intake Frequency:: other <Mariana Camargo 01/16/22 16:40> Substance Use Type: denies use <RamanMariana 01/16/22 16:40> *Occupational Status:: employed <Camargo,Mariana - 01/16/22 16:40> Housing: house <CamargoMariana 01/16/22 16:40> Household Members: spouse <Camargo,Mariana 01/16/22 16:40> *Travel in the last 8 weeks: None <CamargoMariana clifton 01/16/22 16:40> Family Hx:: Diabetes <Mariana Camargo 01/16/22 16:40> 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 <Mariana Camargo 01/16/22 16:40> Review of Systems - Constitutional Denies fever(s) <Mariana Camargo 01/16/22 16:40> - Eyes Reports change in vision (Since starting med for lupus) <Mariana Camargo 01/16/22 16:40> - ENT Denies ear pain, Denies nasal congestion, Denies sore throat <Mariana Camargo 01/16/22 16:40> - *Cardiovascular Reports chest pain, Reports excessive sweating, Reports shortness of breath, Denies irregular heart rhythm <Mariana Camargo 01/16/22 16:40> - *Respiratory Reports shortness of breath, Denies cough, Denies coughing up blood <Mariana Camargo - 01/16/22 16:40> - *Gastrointestinal Denies abdominal pain, Denies change in stools, Denies constipation, Denies heartburn, Denies nausea, Denies vomiting <Mariana Camargo - 01/16/22 16:40> - *Genitourinary Reports abnormal vagin
[2022-01-17] VITALS: BP 143/91; PULSE 80; PULSE 85; RESP 16; TEMP 36.3; O2SAT 90
--- NOTE | 2022-01-17 | CA_ITS ---
APPROVED REPORT Exam: Pharmacologic Technologist: Manjula Doll Ht: 5 ft 6 in Wt: 347 lbs BSA: 2.53 m2 HR: 79 bpm BP: 139/64 mmHg Indications: Chest pain Medical History Medications: Asa,,,,, Pantoprazole,,,,, Stress Test Details Test: LEXISCAN HR Resting HR: 78 bpm Max Heart Rate (APMHR): 170.534899 bpm Max HR Achieved: 117 bpm Target HR (85% APMHR): 144.667678 bpm % of APMHR: 68.82 Recovery HR: 97 bpm BP Resting BP: 139.0/64.0 mmHg Max BP: 144.0/77.0 mmHg Recovery BP: 144.0/77.0 mmHg ECG Resting ECG: Normal sinus rhythm, PVCs, cannot rule out old septal NM Clinical Exercise duration: 04:01 min Highest Stage Achieved: Exercise capacity: 1.0 METs Stress ECG Conclusion Symptoms: Shortness of air, mild chest pressure. Arrhythmias/Ectopy: Frequent, isolated, unifocal PVCs ST-T Changes: No significant changes. Conclusion: Unremarkable Lexiscan stress. Myoview images reported separately. Test Summary REST . . . . . . . Resting REST 16:38 . . 78 . 139/ 64 . . Stage 1 . . . . . . . Myoview Injected Stage 1 01:00 . . 110 . . . . Stage 2 01:00 . . 111 . . . . Stage 3 01:00 . . 104 . . . . Stage 4 . . . . . . . chest pressure Stage 4 01:00 . . 101 . 117/ 62 . . Stage 4 01:01 . . 102 . 117/ 62 . Stop exercise at 04:01 RECOVERY 01:00 . . 99 . . . . RECOVERY 02:00 . . 99 . 123/ 66 . . RECOVERY 03:00 . . 105 . 123/ 66 . . RECOVERY 04:00 . . 98 . 123/ 66 . . RECOVERY 05:00 . . 98 . 123/ 66 . . RECOVERY 05:17 . . 96 . 144/ 77 . . Electronically signed by : Andrzej Tomas MD 01/17/2022 19:18:54
[2022-01-17 04:00] VITALS: PULSE 70
--- NOTE | 2022-01-17 05:46 | PC.NURSE ---
pt has rested well this shift. Pt c/o headache one time and was treated with PRN medication. Telemetry shows NSR with occasional PVCs. HR has been 80-85. Pt remains on RA and O2 sats have been between 90-92% SBP has remained between 143-157.
--- NOTE | 2022-01-17 06:35 | PC.NURSE ---
Pt left floor at this time
[2022-01-17 06:42] LABS: Basophils # 0.1 K/mm3 (0-0.2); Basophils % 1.6 % (0.1-2.0); Eosinophils # 0.2 K/mm3 (0.0-0.4); Eosinophils % 2.7 % (0.1-12.0); Hematocrit 46.4 % (37.0-47.0); Hemoglobin 14.9 g/dL (12.2-16.2); Lymphocytes # 1.4 K/mm3 (0.7-4.5); Lymphocytes % 21.7 % (10-50); Mean Corpuscular Hemoglobin 27.9 pg (27.0-31.2); Mean Platelet Volume 10.1 fl (7.4-10.4); Monocytes # 0.4 K/mm3 (0.1-1.0); Monocytes % 5.9 % (1.7-9.3); Neutrophils # 4.4 K/mm3 (1.8-7.8); Neutrophils % 68.1 % (37.0-80.0); Platelet Count 206 K/mm3 (142-424); Red Blood Count 5.33 M/mm3 (4.20-5.40); Red Cell Distribution Width 16.2 % (11.5-17.5); White Blood Count 6.5 K/mm3 (4.8-10.8)
[2022-01-17 06:43] LABS: Chloride 100 mmol/L (98-107)
[2022-01-17 06:44] LABS: Potassium 3.8 mmoL/L (3.5-5.1); Sodium 138 mmol/L (136-145)
[2022-01-17 06:46] LABS: Blood Urea Nitrogen 11 mg/dl (7-17); Creatinine Clearance Estimated 90 mL/min (50-200); Estimated Glomerular Filt Rate 89 ml/min (>60); GFR (African American) 107 ML/MIN (>60)
[2022-01-17 06:47] LABS: Anion Gap 5.8 mEq/L (5-15); Calcium 9.1 mg/dl (8.4-10.2); Carbon Dioxide 36 mmol/L (22.0-30.0); Chol/HDL Ratio 3.8 (1-3.5); Cholesterol 156 mg/dl (140-200); Glucose 102 mg/dl (74-100); HDL Cholesterol 41 mg/dl (40-60); Triglycerides 82 mg/dl (30-150); VLDL Cholesterol 16 mg/dL (0-40)
[2022-01-17 06:58] LABS: Direct LDL Cholesterol 81.34 mg/dL (100-129)
--- NOTE | 2022-01-17 08:00 | NM_ITS ---
APPROVED REPORT Exam: Nuclear Stress Test Indication: Chest pain, SOB, Fatigue, Tobacco use Patient Location: Inpatient Stress Tech: Manjula Doll NM Tech:Mirtha Cavanaugh, ARRT, RT (R)(N) Ht: 5 ft 6 in Wt: 350 lbs Bra Size: 44C HR: 78 bpm BP: 139/64 mmHg BSA: 2.54 m2 BMI: 56.4 History: Chest pain, SOB, Fatigue, Tobacco use Procedure: Patient received a 0.4 mg of intravenous Lexiscan, resting heart rate 78 bpm, resting blood pressure 139/64 mmHg, with Lexiscan maximum heart rate achived was 117 bpm which is Less than 85 % of the maximum predicted heart rate and blood pressure was 144/77 mmHg. With Lexiscan, patient denied any complaint of chest pain. Electrocardiogram Resting electrocardiogram shows sinus rhythm with premature ventricular complexes, with Lexiscan there is less than 1.[address] segment depression noted from the baseline EKG. Premature ventricular complexes are present throughout the study. The EKG portion of the Lexiscan is nondiagnostic. Cardiac Stress and Resting SPECT Images: Cardiac Stress and Resting SPECT images were obtained using technetium 99m Myoview 32.1 mCi stress and 10.22 mCi at rest. Gated SPECT for analysis of segmental wall motion and calculation of the ejection fraction also done. Prone images were also obtained. Cardiac stress and resting SPECT images show mild reversible ischemia involving the anteroseptal wall, there is transient ischemic dilatation of the left ventricle seen, computer derived ejection fraction is 43% with no regional wall motion abnormality, however during the study frequent ectopic beats were present which may underestimate the ejection fraction by gated SPECT. Right ventricle is normal size and contractility. Conclusion: 1. The EKG portion of the Lexiscan is nondiagnostic. 2. Scintigraphic evidence of mild reversible ischemia involving the anteroseptal wall, computer derived ejection fraction 43% with no regional wall motion abnormality, however during the study frequent ectopic beats were present recommended estimated ejection fraction by gated SPECT, right ventricle is normal size and contractility. Transient ischemic dilatation of the left ventricle is also seen. 3. Abnormal Lexiscan Myoview study. Electronically signed by : Andrzej Tomas MD 01/17/2022 19:23:33
[2022-01-17 10:27] VITALS: BMI 55.6
--- NOTE | 2022-01-17 11:12 | HMH.PNCARD ---
Subjective Date: 01/17/22 Time: 11:00 Principal diagnosis: SOA Interval history: This is a 51-year-old white female who presented to the emergency department complaints of shortness of breath and chest pain. She had an echocardiogram that showed an RVSP of 45 mmHg and a slightly elevated BNP. The patient was given IV diuretics overnight and she states that her shortness of breath has significantly improved. She states her chest pain has resolved. She states that she still has some mild shortness of breath with exertion but is nowhere near as bad as it was yesterday. Her bilateral lower extremity edema has improved. She denies any fever, chills, nausea, vomiting, diarrhea. She states her orthopnea has improved as well. Her echocardiogram does show normal ejection fraction with an RVSP of 45 mmHg consistent with pulmonary hypertension. The patient did undergo a VibeWrite stress testing this morning. We are currently awaiting results. Exam Vital signs and Labs for Last 24 Hours: Temp Pulse Resp BP Pulse Ox 97.3 F L 70 16 143/91 H 90 L 01/17/22 00:00 01/17/22 04:00 01/17/22 00:00 01/17/22 00:00 01/17/22 00:00 Laboratory Results - last 24 hr 01/16/22 11:25: Troponin I < 0.01 01/16/22 12:02: SARS-CoV-2 (PCR) Not detected, Influenza A Untype (PCR) Not detected, Influenza Type B (PCR) Not detected 01/17/22 06:03: WBC 6.5, RBC 5.33, Hgb 14.9, Hct 46.4, MCV 87.0, MCH 27.9, MCHC 32.0, RDW 16.2, Plt Count 206, MPV 10.1, Neut % (Auto) 68.1, Lymph % (Auto) 21.7, [place] % (Auto) 5.9, Eos % (Auto) 2.7, Baso % (Auto) 1.6, Neut # (Auto) 4.4, Lymph # (Auto) 1.4, [place] # (Auto) 0.4, Eos # (Auto) 0.2, Baso # (Auto) 0.1 01/17/22 06:03: Sodium 138, Potassium 3.8, Chloride 100, Carbon Dioxide 36 H, Anion Gap 5.8, BUN 11, Creatinine 0.70, Estimated Creat Clear 90, Estimated GFR 89, Est GFR ( Amer) 107, Glucose 102 H, Calcium 9.1, Magnesium 2.0, Triglycerides 82, Cholesterol 156, LDL Cholesterol Direct 81.34 L, VLDL Cholesterol 16, HDL Cholesterol 41, Cholesterol/HDL Ratio 3.8 H I & O for Last 24 hours: Intake & Output 01/14/22 01/15/22 01/16/22 01/17/22 23:59 23:59 23:59 23:59 Intake Total 120 / 120 1324 / 1324 Output Total 350 / 350 Balance 120 / 120 974 / 974 Weight 347 lb 1 oz 346 lb 2.012 oz Narrative: Telemetry strip is sinus rhythm. Echocardiogram shows: 1. Biatrial enlargement, normal left ventricular size, mild concentric left ventricular hypertrophy, estimated ejection fraction 55% with no regional wall motion abnormality, diastolic parameters are inconclusive. 2. Mildly enlarged right ventricle with normal contractility. 3. Mild mitral and tricuspid regurgitation, calculated right ventricular systolic pressure is 45 mmHg. 4. No significant pericardial effusion. 5. Inferior vena cava is poorly visualized. - Constitutional no acute distress, morbidly obese - *Routine HEENT Exam Head: Present: normocephalic, atraumatic Eye: Present: EOMI, PERRL ENT: Present: mucous membranes moist - *Routine Neck Exam Present: supple, full ROM, normal carotid upstroke. Absent: JVD, carotid bruit, lymphadenopathy - *Routine Respiratory Exam Present: CTA bilaterally - *Routine Cardiovascular Exam Present: RRR, Normal S1, Normal S2. Absent: murmur - *Routine Abdominal Exam Present: soft, normoactive bowel sounds. Absent: tenderness, distended - *Routine Extremities Exam Present: edema (Trace bilateral lower extremity edema), full ROM, pulses intact, normal capillary refill. Absent: cyanosis, clubbing - *Routine Skin Exam Present: intact, warm. Absent: erythema, rash - *Routine Neurological Exam Present: alert, oriented X3, CN II-XII intact. Absent: sensory deficit, motor deficit Progress Note: A&P (1) Pulmonary hypertension Status: Acute (2) Chest pain Status: Resolved (3) CHF (congestive heart failure) Status: Acute (4) Shortness of breath Status: Acute (5) Yousuf
--- NOTE | 2022-01-17 11:19 | HMH.ACPN2 ---
<Mariana Camargo - Last Filed: 01/17/22 11:37> Internal Medicine - PN: Subj *Date: 01/17/22 *Time: 11:37 Interval history: Patient has completed her stress test with pending results. She continues with diuresis. She was up most of the night voiding. She has had no further chest discomfort and denies shortness of breath. She is eating without difficulty. She ambulates without difficulty. Laboratory data this morning show normal CBC. Blood chemistries show normal electrolytes with a slightly high CO2 elevation at 36. Renal function is normal. Cholesterol shows an LDL of 81.34 and triglycerides of 156. Exam Vital signs and Labs for Last 24 Hours: Temp Pulse Resp BP Pulse Ox 97.3 F L 70 16 143/91 H 90 L 01/17/22 00:00 01/17/22 04:00 01/17/22 00:00 01/17/22 00:00 01/17/22 00:00 Laboratory Results - last 24 hr 01/16/22 11:25: Troponin I < 0.01 01/16/22 12:02: SARS-CoV-2 (PCR) Not detected, Influenza A Untype (PCR) Not detected, Influenza Type B (PCR) Not detected 01/17/22 06:03: WBC 6.5, RBC 5.33, Hgb 14.9, Hct 46.4, MCV 87.0, MCH 27.9, MCHC 32.0, RDW 16.2, Plt Count 206, MPV 10.1, Neut % (Auto) 68.1, Lymph % (Auto) 21.7, [place] % (Auto) 5.9, Eos % (Auto) 2.7, Baso % (Auto) 1.6, Neut # (Auto) 4.4, Lymph # (Auto) 1.4, [place] # (Auto) 0.4, Eos # (Auto) 0.2, Baso # (Auto) 0.1 01/17/22 06:03: Sodium 138, Potassium 3.8, Chloride 100, Carbon Dioxide 36 H, Anion Gap 5.8, BUN 11, Creatinine 0.70, Estimated Creat Clear 90, Estimated GFR 89, Est GFR ( Amer) 107, Glucose 102 H, Calcium 9.1, Magnesium 2.0, Triglycerides 82, Cholesterol 156, LDL Cholesterol Direct 81.34 L, VLDL Cholesterol 16, HDL Cholesterol 41, Cholesterol/HDL Ratio 3.8 H I & O for Last 24 hours: Intake & Output 01/14/22 01/15/22 01/16/22 01/17/22 11:59 11:59 11:59 11:59 Intake Total 1444 / 1444 Output Total 350 / 350 Balance 1094 / 1094 Weight 340 lb 346 lb 2.012 oz - Constitutional no acute distress Comments: sitting up in the bed eating and talking on the phone - *Routine Respiratory Exam Present: wheezes (faint and less than yesterday), diminished air movement - *Routine Cardiovascular Exam Present: RRR - *Routine Extremities Exam Present: edema, calf tenderness - *Routine Neurological Exam Present: alert, oriented X3 Assessment and Plan (1) Pulmonary hypertension Status: Acute Category: Medical Code(s): I27.20 - Pulmonary hypertension, unspecified (2) Chest pain Status: Resolved Qualifiers: Chest pain type: precordial pain Qualified Code(s): R07.2 - Precordial pain Category: Medical Code(s): R07.9 - Chest pain, unspecified (3) CHF (congestive heart failure) Status: Acute Category: Medical Code(s): I50.9 - Heart failure, unspecified (4) Shortness of breath Status: Acute Category: Medical Code(s): R06.02 - Shortness of breath (5) Edema Status: Acute Category: Medical Code(s): R60.9 - Edema, unspecified (6) NIKKI (obstructive sleep apnea) Status: Acute Category: Medical Code(s): G47.33 - Obstructive sleep apnea (adult) (pediatric) (7) Morbid obesity Status: Acute Category: Medical Code(s): E66.01 - Morbid (severe) obesity due to excess calories (8) HTN (hypertension) Status: Acute Qualifiers: Hypertension type: essential hypertension Category: Medical Code(s): I10 - Essential (primary) hypertension (9) Diastolic dysfunction Status: Acute Category: Medical Code(s): I51.89 - Other ill-defined heart diseases (10) Tobacco abuse Status: Chronic Category: Medical Code(s): Z72.0 - Tobacco use - Assessment and plan all Dx Assessment and Plan for all problems:: stress test results are pending. She is anxious to go home <Demarco Mondragon - Last Filed: 01/17/22 12:59> Internal Medicine - PN: Subj *Date: 01/17/22 *Time: 12:57 Exam Vital signs and Labs for Last 24 Hours: Temp Pulse Resp BP Pulse Ox 97
[2022-01-17 12:00] VITALS: BP 142/71; PULSE 66; RESP 16; TEMP 36.8; O2SAT 93
--- NOTE | 2022-01-17 15:33 | PC.NURSE ---
Pt is alert and oriented x4. Some faint wheezes noted to bilateral upper lobes. She remains on RA w/ oxygen sats measuring in the 90's. She has ambulated independently to the bathroom. She denies CP or SOB. No changes from morning assessment.
[2022-01-17 15:54] VITALS: BP 142/97; PULSE 68; RESP 18; TEMP 36.8; O2SAT 98
[2022-01-17 20:00] VITALS: BP 140/58; PULSE 60; PULSE 74; RESP 19; TEMP 37; O2SAT 93
[2022-01-18] VITALS (17 sets, daily range): BP systolic 108–133; BP diastolic 62–86; PULSE 53–90; RESP 16–18; TEMP 36.5–37.2; O2SAT 90–98
--- NOTE | 2022-01-18 | IR_ITS ---
APPROVED REPORT Patient Location: Inpatient [facility]ins[facility] Apprentice: SARITA Donnelly RT (R) PROCEDURES Left heart catheterization Left ventriculogram Selective coronary angiogram INDICATION Angina pectoris, Abnormal Myoview, Cardiomyopathy ejection fraction 43% Informed consent was obtained prior to the procedure. COMPLICATIONS None Estimated Blood Loss: Less than 10mls TECHNIQUE One percent lidocaine used to anesthetize the right anterior aspect of the wrist. The right radial artery was accessed via the Seldinger technique. A 6 [place] sheath was placed in the right radial artery. 2.5 mg of verapamil, 800 mcg of nitroglycerin, 1mg Lidocaine and 5000 U Heparin were given through the arterial sheath. The papa catheter was also used to perform left heart catheterization, left ventriculogram and selective coronary angiogram. At the end of the procedure the sheath was removed good hemostasis was achieved using Traclet band, patient was transferred to the postop holding area in stable condition. ANGIOGRAPHIC RESULTS The left main artery Normal The left anterior descending artery Angiographically normal accompanied by SUBHASH-II flow The circumflex artery Nondominant angiographically normal accompanied by SUBHASH II flow The right coronary artery Large dominant and angiographically normal accompanied by SUBHASH II flow The ROSS ventriculogram reveals Dilated ventricle with preserved ejection fraction estimated at 50 to 55% The left ventricular end-diastolic pressure Severely elevated at 35 mmHg IMPRESSION Normal coronary arteries Slow flow down all 3 vessels consistent with diffuse endothelial dysfunction likely stemming from diastolic dysfunction as evidenced by severely elevated LVEDP Preserved ejection fraction PLAN 1. Entresto 2. Loop diuretics 3. Weight loss exercise 4. Recommend sleep study 5. Risk factor modification 6. Treatment of severe diastolic dysfunction Electronically signed by : Benjamin Cheung MD 01/18/2022 16:52:53
--- NOTE | 2022-01-18 05:20 | PC.NURSE ---
NO ACUTE CHANGES THIS SHIFT, PT HAS RESTED COMFORTABLY. BLT LUNGS WITH EXPIRATORY WHEEZING THROUGHOUT, BOWEL SOUNDS PRESENT IN ALL 4 QUADRANTS. PT IS ON RA, BLE WITH +1 PITTING EDEMA. PT DENIES ANY SOA, HEADACHE, PAIN, N/V. VSS
[2022-01-18 06:53] LABS: Basophils % 0.3 % (0.1-2.0); Eosinophils # 0.2 K/mm3 (0.0-0.4); Eosinophils % 2.5 % (0.1-12.0); Hematocrit 46.2 % (37.0-47.0); Hemoglobin 14.8 g/dL (12.2-16.2); Lymphocytes # 1.9 K/mm3 (0.7-4.5); Lymphocytes % 28.9 % (10-50); Mean Corpuscular Hemoglobin 27.3 pg (27.0-31.2); Mean Corpuscular Volume 85.3 fl (81-99); Mean Platelet Volume 9.4 fl (7.4-10.4); Monocytes # 0.5 K/mm3 (0.1-1.0); Monocytes % 7.6 % (1.7-9.3); Neutrophils % 60.7 % (37.0-80.0); Platelet Count 218 K/mm3 (142-424); Red Blood Count 5.41 M/mm3 (4.20-5.40); Red Cell Distribution Width 15.1 % (11.5-17.5); White Blood Count 6.6 K/mm3 (4.8-10.8)
[2022-01-18 06:54] LABS: Chloride 100 mmol/L (98-107); Sodium 138 mmol/L (136-145)
[2022-01-18 06:57] LABS: Blood Urea Nitrogen 14 mg/dl (7-17); Carbon Dioxide 38 mmol/L (22.0-30.0); Creatinine Clearance Estimated 90 mL/min (50-200); Estimated Glomerular Filt Rate 89 ml/min (>60); GFR (African American) 107 ML/MIN (>60)
[2022-01-18 06:58] LABS: Calcium 9.2 mg/dl (8.4-10.2); Glucose 107 mg/dl (74-100)
--- NOTE | 2022-01-18 08:24 | HMH.ACPN2 ---
<Liliam Mcnair - Last Filed: 01/18/22 08:24> Internal Medicine - PN: Subj *Date: 01/18/22 *Time: 08:24 Interval history: Patient has no new complaints today. She denies any chest pain or shortness of breath. She states she is waiting to have a heart cath today. She slept decently last night. Exam Vital signs and Labs for Last 24 Hours: Temp Pulse Resp BP Pulse Ox 98.1 F 88 18 123/76 92 L 01/18/22 04:00 01/18/22 06:26 01/18/22 04:00 01/18/22 04:00 01/18/22 04:00 Laboratory Results - last 24 hr 01/18/22 06:15: Sodium 138, Potassium 4.0, Chloride 100, Carbon Dioxide 38 H, Anion Gap 4.0 L, BUN 14 D, Creatinine 0.70, Estimated Creat Clear 90, Estimated GFR 89, Est GFR ( Amer) 107, Glucose 107 H, Calcium 9.2 01/18/22 06:35: WBC 6.6, RBC 5.41 H, Hgb 14.8, Hct 46.2, MCV 85.3, MCH 27.3, MCHC 32.0, RDW 15.1, Plt Count 218, MPV 9.4, Neut % (Auto) 60.7, Lymph % (Auto) 28.9, [place] % (Auto) 7.6, Eos % (Auto) 2.5, Baso % (Auto) 0.3, Neut # (Auto) 4.0, Lymph # (Auto) 1.9, [place] # (Auto) 0.5, Eos # (Auto) 0.2, Baso # (Auto) 0.0 I & O for Last 24 hours: Intake & Output 01/15/22 01/16/22 01/17/22 01/18/22 11:59 11:59 11:59 11:59 Intake Total 1444 / 1444 240 / 240 Output Total 650 / 650 400 / 400 Balance 794 / 794 -160 / -160 Weight 340 lb 346 lb 2.012 oz - Constitutional no acute distress - *Routine Respiratory Exam Present: CTA bilaterally - *Routine Cardiovascular Exam Present: RRR - *Routine Abdominal Exam Present: soft, normoactive bowel sounds. Absent: tenderness - *Routine Extremities Exam Absent: cyanosis, clubbing, edema - *Routine Skin Exam Present: warm. Absent: rash - *Routine Neurological Exam Present: alert, oriented X3 Assessment and Plan (1) Pulmonary hypertension Status: Acute Category: Medical Code(s): I27.20 - Pulmonary hypertension, unspecified (2) Chest pain Status: Resolved Qualifiers: Chest pain type: precordial pain Qualified Code(s): R07.2 - Precordial pain Category: Medical Code(s): R07.9 - Chest pain, unspecified (3) CHF (congestive heart failure) Status: Acute Category: Medical Code(s): I50.9 - Heart failure, unspecified (4) Shortness of breath Status: Acute Category: Medical Code(s): R06.02 - Shortness of breath (5) Edema Status: Acute Category: Medical Code(s): R60.9 - Edema, unspecified (6) NIKKI (obstructive sleep apnea) Status: Acute Category: Medical Code(s): G47.33 - Obstructive sleep apnea (adult) (pediatric) (7) Morbid obesity Status: Acute Category: Medical Code(s): E66.01 - Morbid (severe) obesity due to excess calories (8) HTN (hypertension) Status: Acute Qualifiers: Hypertension type: essential hypertension Category: Medical Code(s): I10 - Essential (primary) hypertension (9) Diastolic dysfunction Status: Acute Category: Medical Code(s): I51.89 - Other ill-defined heart diseases - Assessment and plan all Dx Assessment and Plan for all problems:: Patient awaiting heart cath later on this morning. Cardiology to follow. <Demarco Mondragon - Last Filed: 01/18/22 12:40> Internal Medicine - PN: Subj *Date: 01/18/22 *Time: 12:39 Exam Vital signs and Labs for Last 24 Hours: Temp Pulse Resp BP Pulse Ox 97.7 F 63 18 126/86 90 L 01/18/22 08:00 01/18/22 08:00 01/18/22 08:00 01/18/22 08:00 01/18/22 08:00 Laboratory Results - last 24 hr 01/18/22 06:15: Sodium 138, Potassium 4.0, Chloride 100, Carbon Dioxide 38 H, Anion Gap 4.0 L, BUN 14 D, Creatinine 0.70, Estimated Creat Clear 90, Estimated GFR 89, Est GFR ( Amer) 107, Glucose 107 H, Calcium 9.2 01/18/22 06:35: WBC 6.6, RBC 5.41 H, Hgb 14.8, Hct 46.2, MCV 85.3, MCH 27.3, MCHC 32.0, RDW 15.1, Plt Count 218, MPV 9.4, Neut % (Auto) 60.7, Lymph % (Auto) 28.9, [place] % (Auto) 7.6, Eos % (Auto) 2.5, Baso % (Auto) 0.3, Neut # (Auto) 4.0, Lymph # (Auto) 1.9, [place] # (Auto) 0.5
--- NOTE | 2022-01-18 08:57 | HMH.PNCARD ---
Subjective Date: 01/18/22 Time: 08:20 Principal diagnosis: SOA Interval history: This is a 51-year-old white female who presented to the emergency department with complaints of shortness of breath. The patient was found to have pulmonary hypertension on echocardiogram and had IV diuretics and states that her shortness of breath has improved significantly. Her chest pain has resolved. She did undergo a Lexiscan Myoview stress testing which was abnormal and shows reversible ischemia in the anteroseptal wall. She states her shortness of breath is still present with exertion but under much better control. Her edema has improved as well. She denies any fever, chills, nausea, vomiting, diarrhea. She still has some associated orthopnea with her shortness of breath. Exam Vital signs and Labs for Last 24 Hours: Temp Pulse Resp BP Pulse Ox 97.7 F 63 18 126/86 90 L 01/18/22 08:00 01/18/22 08:00 01/18/22 08:00 01/18/22 08:00 01/18/22 08:00 Laboratory Results - last 24 hr 01/18/22 06:15: Sodium 138, Potassium 4.0, Chloride 100, Carbon Dioxide 38 H, Anion Gap 4.0 L, BUN 14 D, Creatinine 0.70, Estimated Creat Clear 90, Estimated GFR 89, Est GFR ( Amer) 107, Glucose 107 H, Calcium 9.2 01/18/22 06:35: WBC 6.6, RBC 5.41 H, Hgb 14.8, Hct 46.2, MCV 85.3, MCH 27.3, MCHC 32.0, RDW 15.1, Plt Count 218, MPV 9.4, Neut % (Auto) 60.7, Lymph % (Auto) 28.9, [place] % (Auto) 7.6, Eos % (Auto) 2.5, Baso % (Auto) 0.3, Neut # (Auto) 4.0, Lymph # (Auto) 1.9, [place] # (Auto) 0.5, Eos # (Auto) 0.2, Baso # (Auto) 0.0 I & O for Last 24 hours: Intake & Output 01/15/22 01/16/22 01/17/22 01/18/22 23:59 23:59 23:59 23:59 Intake Total 120 / 120 1564 / 1564 Output Total 1050 / 1050 Balance 120 / 120 514 / 514 Weight 347 lb 1 oz 346 lb 2.012 oz - Constitutional no acute distress, average body habitus - *Routine HEENT Exam Head: Present: normocephalic, atraumatic Eye: Present: EOMI, PERRL ENT: Present: mucous membranes moist - *Routine Neck Exam Present: supple, full ROM, normal carotid upstroke. Absent: JVD, carotid bruit, lymphadenopathy - *Routine Respiratory Exam Present: CTA bilaterally - *Routine Cardiovascular Exam Present: RRR, Normal S1, Normal S2. Absent: murmur - *Routine Abdominal Exam Present: soft, normoactive bowel sounds. Absent: tenderness, distended - *Routine Extremities Exam Present: edema (Trace bilateral lower extremity edema), full ROM, pulses intact, normal capillary refill. Absent: cyanosis, clubbing - *Routine Skin Exam Present: intact, warm. Absent: erythema, rash - *Routine Neurological Exam Present: alert, oriented X3, CN II-XII intact. Absent: sensory deficit, motor deficit Progress Note: A&P (1) Abnormal cardiovascular stress test Status: Acute (2) Atypical angina Status: Acute (3) Shortness of breath Status: Acute (4) Pulmonary hypertension Status: Acute (5) CHF (congestive heart failure) Status: Acute (6) Edema Status: Acute (7) NIKKI (obstructive sleep apnea) Status: Acute (8) Morbid obesity Status: Acute (9) HTN (hypertension) Status: Acute (10) Diastolic dysfunction Status: Acute Assessment and Plan for All Diagnoses:: Plan: 1. This is a 51-year-old white female who presented to the emergency department complaints of shortness of breath and chest pain. She has been getting IV diuresis with Lasix for pulmonary hypertension seen on echocardiogram. Her shortness of breath improved and her chest pain resolved. She continues to be short of breath with orthopnea. Continue Lasix at this time. 2. The patient did undergo a Lexiscan Myoview stress testing which showed reversible ischemia in the anteroseptal wall. Given her atypical angina, persistent shortness of breath and abnormal stress test, we will plan to proceed with left cardiac catheterization to evaluate for coronary artery disease. The patient has mentioned the risk and
--- NOTE | 2022-01-18 15:20 | PC.NURSE ---
Pt. left unit via wheelchair to cathlab. Pt. accompanied by animal laboratory helper staff x2
--- NOTE | 2022-01-18 17:05 | PC.NURSE ---
Report received from Shelley shrimp pond laborer RN
--- NOTE | 2022-01-18 17:25 | PC.NURSE ---
Pt. to room 279 from manager laboratory, via stretcher. Pt. accompanied by manager laboratory staff x2.
--- NOTE | 2022-01-18 17:45 | PC.NURSE ---
Pt was A&Ox 4, VSS, expiratory wheezing bilaterally throughout lungs. Radialband in place, no visual drainage at this time, RUE warm to touch, pink in color, right radial pulse +1 and left radial pulse +3. Will continue to monitor pt.
--- NOTE | 2022-01-18 19:27 | PC.NURSE ---
All care and documentation by CINDY was completed under my direct supervision.
--- NOTE | 2022-01-18 20:39 | PC.NURSE ---
RADIAL BAND REMAINS IN PLACE TO RIGHT WRIST. SITE REMAINS WITHOUT OOZING.
--- NOTE | 2022-01-18 21:17 | PC.NURSE ---
RADIAL BAND REMOVED WITH NO OOZING NOTED. GAUZE AND TEGADERM PLACED WITH APPROPRIATE DISCHARGE INSTRUCTIONS GIVEN. IV DC'D WITH CATHETER INTACT. NO S.SX OF INFECTION NOTED.
--- NOTE | 2022-01-19 12:54 | HMH.DCSUM ---
General - General Admission date:: 01/16/22 <Demarco Mondragon - 01/27/22 08:04> 01/16/22 <Liliam Mcnair - 01/19/22 12:59> Discharge date: 01/18/22 <XuLiliam - 01/19/22 12:59> HPI HPI: Ms. Reich is a 51-year-old female with history of asthma and lupus who presented to emergency room with shortness of breath and chest discomfort. She stated that this shortness of breath began yesterday with exertion and at rest. She just did not feel well so she went on to bed and when she awakened this morning to get ready for work her shortness of breath was worse and associated with chest heaviness like a truck sitting on her chest. She had no radiation and experienced no vomiting although she states she was nauseated. She also experienced some diaphoresis. She has been seen by cardiology and has received a dose of Lasix. She is feeling somewhat better. She has been ruled out for an [place]. To note she did have a uterine ablation last week. She had a CTA of her chest which was negative for PE. She denies having any fever or chills, vomiting or diarrhea. With her shortness of breath this a.m. her heart rate was running 40-80/min with a pulse oximetry showing 81 to 91% O2 sats. BNP was noted to be 200. CBC was normal. Electrolytes were satisfactory with slightly elevated CO2 at 32. Troponin I was normal x2. She did receive a DuoNeb treatment, aspirin, nitroglycerin ointment. At the time of this exam patient denies shortness of breath and chest discomfort. She is watching TV. <XuLiliam - 01/19/22 12:59> Hospital Course Hospital Course: The patient had an echo showing an EF of 55% and she had a right ventricular systolic pressure of 45 mmHg. Cardiology felt she would need diuresis and started her on 40 mg of Lasix twice a day. Her elevated RSVP was consistent with pulmonary hypertension which may be indicative of obstructive sleep apnea. It was felt she would need evaluation of this as well. Cardiology performed a stress test and it was abnormal. They therefore wanted to perform a heart cath. She had no further chest pain. She had her heart cath on 01/18/2022 and it showed normal coronary arteries. She did have diffuse endothelial dysfunction likely stemming from diastolic dysfunction as evidenced by her elevated LVEDP. It was felt she could be discharged home on Lasix and Aldactone along with bisoprolol and she will follow-up with cardiology in a week. <Liliam Mcnair - 01/19/22 12:59> Objective Vital signs: Temp Pulse Resp BP Pulse Ox 97.9 F 64 18 111/77 98 01/18/22 19:30 01/18/22 20:00 01/18/22 19:30 01/18/22 19:30 01/18/22 19:45 <Demarco Mondragon - 01/27/22 08:04> Temp Pulse Resp BP Pulse Ox 97.9 F 64 18 111/77 98 01/18/22 19:30 01/18/22 20:00 01/18/22 19:30 01/18/22 19:30 01/18/22 19:45 <Liliam Mcnair - 01/19/22 12:59> Narrative: - Constitutional no acute distress - *Routine Respiratory Exam Present: CTA bilaterally - *Routine Cardiovascular Exam Present: RRR - *Routine Abdominal Exam Present: soft, normoactive bowel sounds. Absent: tenderness - *Routine Extremities Exam Absent: cyanosis, clubbing, edema - *Routine Skin Exam Present: warm. Absent: rash - *Routine Neurological Exam Present: alert, oriented X3 <Liliam Mcnair - 01/19/22 12:59> DS: Diagnosis - Discharge Diagnosis (1) Abnormal cardiovascular stress test Status: Acute (2) Atypical angina Status: Acute (3) Shortness of breath Status: Acute (4) Pulmonary hypertension Status: Acute (5) CHF (congestive heart failure) Status: Acute (6) Edema Status: Acute (7) NIKKI (obstructive sleep apnea) Status: Acute (8) Morbid obesity Status: Acute (9) HTN (hypertension) Status: Acute (10) Diastolic dysfunction Status: Acute <Liliam Mcnair - 01/19/22 12:54> (1) Abnormal cardiovascu
--- NOTE | 2022-01-19 16:09 | CARE MANAGER ---
Spoke with patient on post discharge phone interview. Patient is doing fine and has no acute needs at this time.
== END 2022-01-18 21:30 | disposition home or self-care (01) | DRG 287 ==
LOC: ER 12:35 → 2ND 13:32 → OB 01-17 18:31
PROVIDERS: Internal Medicine; Nurse Practitioner Family; Admitting Provider Family Medicine; Emergency Provider Emergency Medicine; PCP Family Medicine; Visit Provider Family Medicine
PROC: 4A023N7 Measurement of Cardiac Sampling and Pressure, Left Heart, Percutaneous Approach (ICD-10-PCS; principal; 2022-01-18 12:00)
DX: I20.9 Angina pectoris, unspecified (principal); Z68.43 Body mass index [BMI] 50.0-59.9, adult; I27.20 Pulmonary hypertension, unspecified; E66.01 Morbid (severe) obesity due to excess calories; F17.210 Nicotine dependence, cigarettes, uncomplicated; I50.9 Heart failure, unspecified; G47.33 Obstructive sleep apnea (adult) (pediatric); M32.9 Systemic lupus erythematosus, unspecified; M19.90 Unspecified osteoarthritis, unspecified site; I11.0 Hypertensive heart disease with heart failure; Z20.822 Contact with and (suspected) exposure to COVID-19
CPT/HCPCS: 36415; 71046; 71275; 78452; 80048; 80053; 80061; 81001; 82150; 83690; 83735; 83880; 84145; 84484; 84703; 85025; 85651; 86140; 93005; 93017; 93306; 93458; 94640; 96375; 99152; 99285; A9502; C1725; C1760; C1769; C9803; J1644; Q9967; U0003; U0005

== ENCOUNTER → 2022-04-06 10:11 | Outpatient (CLI) | payer BC, SELFPAY ==
[2022-04-06 10:40] LABS: Basophils # 0.1 K/mm3 (0-0.2); Eosinophils # 0.2 K/mm3 (0.0-0.4); Eosinophils % 2.6 % (0.1-12.0); Hematocrit 47.3 % (37.0-47.0); Hemoglobin 14.4 g/dL (12.2-16.2); Lymphocytes # 1.8 K/mm3 (0.7-4.5); Lymphocytes % 24.5 % (10-50); Mean Corpuscular HGB Conc 30.5 g/dL (31.8-35.4); Mean Corpuscular Hemoglobin 28.4 pg (27.0-31.2); Mean Corpuscular Volume 93.1 fl (81-99); Mean Platelet Volume 8.9 fl (7.4-10.4); Monocytes # 0.6 K/mm3 (0.1-1.0); Monocytes % 7.9 % (1.7-9.3); Neutrophils # 4.6 K/mm3 (1.8-7.8); Platelet Count 317 K/mm3 (142-424); Red Blood Count 5.08 M/mm3 (4.20-5.40); Red Cell Distribution Width 15.8 % (11.5-17.5); White Blood Count 7.2 K/mm3 (4.8-10.8)
[2022-04-06 10:54] LABS: Anion Gap 8.1 mEq/L (5-15); Blood Urea Nitrogen 15 mg/dl (7-17); Calcium 8.8 mg/dl (8.4-10.2); Carbon Dioxide 35 mmol/L (22.0-30.0); Chloride 99 mmol/L (98-107); Estimated Glomerular Filt Rate 89 ml/min (>60); GFR (African American) 107 ML/MIN (>60); Glucose 96 mg/dl (74-100); Magnesium 1.8 mg/dl (1.6-2.3); Potassium 4.1 mmoL/L (3.5-5.1); Sodium 138 mmol/L (136-145)
== END ==
PROVIDERS: PCP Nurse Practitioner Family; Visit Provider Nurse Practitioner
DX: I10 Essential (primary) hypertension (principal); R42 Dizziness and giddiness; R55 Syncope and collapse; R06.02 Shortness of breath; I27.20 Pulmonary hypertension, unspecified; E66.01 Morbid (severe) obesity due to excess calories; F17.200 Nicotine dependence, unspecified, uncomplicated; G47.33 Obstructive sleep apnea (adult) (pediatric); R06.83 Snoring; R40.0 Somnolence; R63.5 Abnormal weight gain; Z68.43 Body mass index [BMI] 50.0-59.9, adult
CPT/HCPCS: 80048; 83735; 85025

== ENCOUNTER → 2022-05-03 18:34 | Outpatient (CLI) | payer BC, SELFPAY | PROVIDERS: PCP Nurse Practitioner Family; Visit Provider Nurse Practitioner | DX: G47.30 Sleep apnea, unspecified (principal); R40.0 Somnolence; R06.83 Snoring; R06.02 Shortness of breath; I10 Essential (primary) hypertension | CPT/HCPCS: G0399 ==

== ENCOUNTER → 2022-06-12 14:23 | Outpatient (CLI) | payer BC, SELFPAY | PROVIDERS: PCP Nurse Practitioner Family; Visit Provider Internal Medicine | DX: Z01.812 Encounter for preprocedural laboratory examination (principal); Z20.822 Contact with and (suspected) exposure to COVID-19; Z12.11 Encounter for screening for malignant neoplasm of colon | CPT/HCPCS: C9803; U0003; U0005 ==

== ENCOUNTER 2022-06-14 08:24 | Day surgery (SDC) | payer BC, SELFPAY ==
[2022-06-12 12:40] VITALS: BMI 58.2
[2022-06-14] VITALS (7 sets, daily range): BP systolic 96–134; BP diastolic 41–80; PULSE 81–92; RESP 16–18; TEMP 36.2–36.4; O2SAT 97–98
--- NOTE | 2022-06-14 09:45 | P.PN_ITS ---
PFSH PFS Medical History Allergies Arthritis Asthma Cholecystectomy planned Chronic cough Congestive heart failure Daytime somnolence Depression Dizziness Gallbladder disease HTN (hypertension) Morbid obesity NIKKI (obstructive sleep apnea) Restless sleeper Snoring Syncope Weight gain Surgical History History of endometrial ablation Hx of cardiac cath Hx of tubal ligation Family History Mother Blood disorder Mother Diabetes Social History Smoking Status: Current every day smoker tobacco type: cigarettes packs per day: 1 years smoked: 30 second hand exposure: Yes alcohol intake: never substance use type: denies use current occupational status: employed Travel in the last 8 weeks: None household members: spouse housing: house 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 [facility] Anesthesia Checklist Patient Identification Patient Identification: Arm Band and Verbal (Name & ) Structural Data Admitted From: Home Planned Operative Procedure/s: Colonoscopy Consent for Planned Operative Procedure(s) Verified: Yes NPO Status Verified Time NPO: 00:00 Additional verifications Anesthesia Reactions: No Hx Blood Transfusions: No Blood Transfusion Reaction: No Airway Assessment C-Spine Mobility Assessed: Yes TMJ Mobility Assessed: Yes Dentition: Good Dentition Neurological Assessment Level of Consciousness: Awake Hx Seizures: No Numbness or tingling in extremities: No Anesthesia Plan Anesthesia Risk discussed: Yes Anesthesia Plan: Verified ASA Class: III Anesthesia Type: MAC
--- NOTE | 2022-06-14 09:45 | HMH.SCOPE ---
Procedure: Date: 06/14/22 Patient Date of :: 1970 Procedure Performed:: Colonoscopy Indications:: Screening colonoscopy Performing Provider:: Honorio Taylor MD Referring Provider:: Terra Lebron APRN Sedation:: See RN notes Procedure:: After placing the patient in the left lateral decubitus position, the colonoscopy was gently inserted into the rectum and under direct visualization advanced to the cecum which was identified by transillumination in the right lower quadrant, identification of the ileocecal valve, appendiceal orifice, and cecal strap. Color, texture, mucosa, and anatomy of the colon were carefully examined with the scope. Findings:: Anal canal: normal Rectum: Internal hemorrhoids Sigmoid colon: Diverticulosis, fair preparation Descending colon: fair preparation Splenic flexure: fair to poor preparation Transverse colon: fair to poor preparation Hepatic flexure: poor preparation Ascending colon: poor preparation Cecum: poor preparation Terminal ileum: not visualized Recommendations:: Inadequate bowel preparation for first time screening colonoscopy. Recommend that patient have a repeat colonoscopy within 3 months with 2 days liquid diet and split dose bowel preparation. Complications:: none Estimated blood obtained (mL): 0
== END 2022-06-14 10:26 | disposition home or self-care (01) ==
PROVIDERS: PCP Nurse Practitioner Family; Visit Provider Internal Medicine
PROC: 0DJD8ZZ Inspection of Lower Intestinal Tract, Via Natural or Artificial Opening Endoscopic (ICD-10-PCS; CPT 45378; principal; 2022-06-14 09:30)
DX: Z12.11 Encounter for screening for malignant neoplasm of colon (principal); Z91.19 Patient's noncompliance with other medical treatment and regimen; F17.210 Nicotine dependence, cigarettes, uncomplicated
CPT/HCPCS: 45378

== ENCOUNTER 2022-06-18 16:01 | Emergency (ER) | payer BC, SELFPAY ==
[2022-06-18 16:04] VITALS: BP 164/74; PULSE 93; RESP 16; TEMP 36.9; O2SAT 98; BMI 57.5
--- NOTE | 2022-06-18 16:17 | XR_ITS ---
PROCEDURE INFORMATION: Exam: XR Left Knee Exam date and time: 06/18/2022 4:16 PM Age: 51 years old Clinical indication: Patient HX: Developed left knee pain while walking through house. TECHNIQUE: Imaging protocol: Radiologic exam of the Left knee. Views: 3 views. COMPARISON: No relevant prior studies available. FINDINGS: Bones/joints: Mild degenerative changes primarily involving the patellofemoral articulation and the lateral knee compartment. Soft tissues: Normal. IMPRESSION: No acute findings.
--- NOTE | 2022-06-18 16:32 | PC.NURSE ---
pt to and from Rad via WC
--- NOTE | 2022-06-18 16:39 | HMH.EDGENADL ---
Discharge Plan Disposition Patient Disposition: Home, Self-Care Condition: Good Prescriptions Prescriptions: New hydrocodone-acetaminophen 5-325 mg tablet 1 tab PO Q6H PRN (Reason: pain) Qty: 10 0RF No Action meloxicam 15 mg tablet 15 mg PO DAILY Label Comments: TAKE 1 TABLET BY MOUTH ONCE DAILY WITH FOOD Rx Instructions: take with food hydroxychloroquine 200 mg tablet 200 mg PO BID Label Comments: TAKE 1 TABLET BY MOUTH TWICE DAILY aspirin [Adult Aspirin Regimen] 81 mg tablet,delayed release (DR/EC) 81 mg PO DAILY furosemide [Lasix] 40 mg Tablet 40 mg PO BID sertraline [Zoloft] 50 mg Tablet 50 mg PO DAILY Entresto 24-26 mg tablet 1 tab PO BID spironolactone 50 MG tablet 25 mg PO DAILY albuterol sulfate 6.7 GM HFA aerosol inhaler 2 puffs IH Q4HP PRN (Reason: shortness of air) Referrals Follow up/Referrals: Zhang Black JR, MD [Physician] - See instructions Terra Lebron APRN [Primary Care Provider] - See instructions Activity Restrictions/Add. Instructions Additional Instructions/Restrictions: Crutches and knee immobilizer until seen by orthopedics. Ice 20 minutes 4 times a day and elevate leg to reduce pain and swelling. Randolph as needed for pain. Sitting job only until seen by orthopedics. Follow-up with Dr. Black, orthopedics, call tomorrow to make appointment. Additional instructions for CONTROLLED SUBSTANCES: You have been prescribed a medication that is a controlled substance. Controlled substances include pain medications known as opiates and sedative nerve medications known as benzodiazepines. Tramadol, fioricet, and gabapentin are also controlled substances. Some common opiates include: Codeine (such as Tylenol #3) Hydrocodone (Vicodin, Lortab, Lorcet, Randolph) Oxycodone (Percocet, Percodan, Oxycodone, Oxy IR) Some common benzodiazepines include: Diazepam (Valium) Lorazepam (Ativan) Alprazolam (Xanax) Clonazepam (Klonopin) Oxazepam (Serax) All of these controlled substances are highly addictive and frequently abused. Misuse can and frequently does lead to addiction as well as overdose and . Medication should be stored in a locked cabinet or other secure storage unit. Do not store the medication in a motor vehicle. Short term supplies, 3 days or less, are prescribed because of the highly addictive nature of the medication. Any of the controlled substance medication NOT taken should be disposed of properly and NOT SAVED. The recommended method of disposing of unused medications is: Place the medicines in a sealable plastic bag. If the medicine is a solid, crush it or add water to dissolve it. Add something undesirable (cat litter, coffee grounds, etc.) Dispose of sealed bag in household trash Do not flush or pour unused medicines down a sink or drain. Controlled substances should not be shared, given away or sold. Because of the addictive nature and frequent abuse, these medications are sometimes stolen. These medications should be kept in a safe place where they cannot be stolen. Do not keep them in your car or purse. Lost or stolen prescriptions for controlled substances WILL NOT BE REFILLED in this emergency department, regardless of whether a police report was filed. Clinical Impressions Clinical Impression: Acute pain of left knee Instructions Patient Instructions: How to Use Crutches, DI for Knee Pain, How to Use a Knee Immobilizer Discharge ED Provider: Jerry Triplett General Adult HPI General Chief complaint: PAIN Stated complaint: AO@06/18@1600@HOME Injured left knee Time Seen by Provider: 06/18/22 16:30 Mode of Arrival: Wheelchair Source of Information: Patient Limitations: No Limitations Description of Symptoms (Recalled from ER Triage Doc. by RN): to ed per pvt car with c/o lt knee pain pt states she was walking and with sudden onset of pain starting approx
[2022-06-18 17:20] VITALS: BP 153/74; PULSE 87; RESP 16; TEMP 36.6; O2SAT 96
== END 2022-06-18 17:20 | disposition home or self-care (01) ==
PROVIDERS: Emergency Provider Emergency Medicine; PCP Nurse Practitioner Family
DX: M25.562 Pain in left knee (principal); Z79.82 Long term (current) use of aspirin; Z79.899 Other long term (current) drug therapy; J45.909 Unspecified asthma, uncomplicated; M19.90 Unspecified osteoarthritis, unspecified site; I50.9 Heart failure, unspecified; I11.0 Hypertensive heart disease with heart failure; F32.A Depression, unspecified; G47.33 Obstructive sleep apnea (adult) (pediatric)
CPT/HCPCS: 73562; 99283

== ENCOUNTER → 2022-07-11 10:29 | Outpatient (CLI) | payer BC, SELFPAY ==
--- NOTE | 2022-07-11 10:39 | MR_ITS ---
FINAL REPORT CLINICAL HISTORY: knee pain. TWISTED KNEE AND HAS MEDIAL SIDED KNEE PAIN. TWISTED KNEE 3 WEEKS AGO. UNABLE TO BEAR FULL WEIGHT. KNEE INSTABILITY. FINDINGS: Multiplanar MR imaging of the right knee was performed without contrast. Motion artifact is seen on many of the images which decreases the sensitivity. There is a partial tear of the posterior root of the medial meniscus. There is abnormal signal in the posterior horn of the lateral meniscus worrisome for a tear. The anterior and posterior cruciate ligaments are intact. The medial collateral ligament and lateral ligamentous complex are intact. The patellar and quadriceps tendons are intact. There is no evidence of fracture. There is mild degenerative change with mild chondromalacia. Moderate joint effusion is seen. The musculature is intact. No soft tissue mass or cyst is identified. IMPRESSION: Partial tear posterior root medial meniscus. Findings worrisome for a lateral meniscal tear. Degenerative change and chondromalacia. Reviewed, Interpreted and Dictated by Nawaf Yost III, MD Transcribed by Mariana Garcia Authenticated and [facility]
== END ==
PROVIDERS: PCP Nurse Practitioner Family; Visit Provider Physician Assistant Surgical
DX: M23.92 Unspecified internal derangement of left knee (principal)
CPT/HCPCS: 73721

== ENCOUNTER → 2022-07-26 13:02 | Outpatient (CLI) | payer BC, SELFPAY ==
--- NOTE | 2022-07-26 13:09 | XR_ITS ---
FINAL REPORT CLINICAL HISTORY: preop, hx of tobacco use COMPARISON: 01/16/2022 FINDINGS: Two views of the chest were obtained. The heart size and pulmonary vascularity are within normal limits. The mediastinum is normal. There is mild bronchial wall thickening consistent with bronchitis.. There is no pneumothorax. The bony thorax is intact. IMPRESSION: Findings consistent with bronchitis. Reviewed, Interpreted and Dictated by Nawaf Yost III, MD Transcribed by Amelia Reilly Authenticated and . [facility]
[2022-07-26 13:21] LABS: Microscopic, Urine URINE MICROSCOPIC (MICROSCOPIC)
[2022-07-26 14:12] LABS: Basophils # 0.1 K/mm3 (0-0.2); Basophils % 0.9 % (0.1-2.0); Eosinophils # 0.2 K/mm3 (0.0-0.4); Eosinophils % 2.3 % (0.1-12.0); Hemoglobin 15.5 g/dL (12.2-16.2); Lymphocytes # 1.9 K/mm3 (0.7-4.5); Lymphocytes % 28.6 % (10-50); Mean Corpuscular HGB Conc 31.6 g/dL (31.8-35.4); Mean Corpuscular Volume 88.4 fl (81-99); Mean Platelet Volume 9.5 fl (7.4-10.4); Monocytes # 0.6 K/mm3 (0.1-1.0); Monocytes % 8.4 % (1.7-9.3); Neutrophils % 59.8 % (37.0-80.0); Platelet Count 251 K/mm3 (142-424); Red Blood Count 5.54 M/mm3 (4.20-5.40); Red Cell Distribution Width 14.1 % (11.5-17.5); White Blood Count 6.8 K/mm3 (4.8-10.8)
[2022-07-26 14:19] LABS: Appearance,Urine CLEAR (Clear); Bilirubin,Urine Negative (Negative); Blood, Urine Negative (Negative); Color,Urine YELLOW (Yellow); Glucose,Urine (UA) Negative (Negative); Ketones,Urine Negative (Negative); Leukocyte Esterase,Urine Negative (Negative); Nitrate,Urine Negative (Negative); PH,Urine 6.5 (5.0-8.5); Protein,Urine Negative (Negative); Specific Gravity, Urine <= 1.005 (1.005-1.030); Urobilinogen,Urine 0.2 EU/dl (0.2)
[2022-07-26 14:32] LABS: Bacteria,Urine Trace /lpf; WBC,Urine Occasional #/hpf (0-3)
[2022-07-26 14:54] LABS: Alanine Aminotransferase 27 U/L (12-78); Albumin/Globulin Ratio 1.2 (1.1-1.8); Alkaline Phosphatase 135 U/L (38-126); Anion Gap 13.4 mEq/L (5-15); Aspartate Amino Transferase 31 U/L (14-36); Bilirubin,Total 0.5 mg/dl (0.2-1.3); Blood Urea Nitrogen 12 mg/dl (7-17); Calcium 9.9 mg/dl (8.4-10.2); Carbon Dioxide 35 mmol/L (22.0-30.0); Chloride 95 mmol/L (98-107); Estimated Glomerular Filt Rate 89 ml/min (>60); GFR (African American) 107 ML/MIN (>60); Globulin 3.4 g/dL (1.3-3.2); Glucose 62 mg/dl (74-100); Potassium 4.4 mmoL/L (3.5-5.1); Sodium 139 mmol/L (136-145); Total Protein,Serum 7.4 g/dl (6.3-8.2)
== END ==
PROVIDERS: PCP Nurse Practitioner Family; Visit Provider Orthopaedic Surgery
DX: Z01.818 Encounter for other preprocedural examination (principal)
CPT/HCPCS: 36415; 71046; 80053; 81001; 85025

== ENCOUNTER 2022-07-28 06:12 | Day surgery (SDC) | payer BC, SELFPAY ==
[2022-07-25 16:11] VITALS: BMI 54.8
[2022-07-28] VITALS (9 sets, daily range): BP systolic 124–164; BP diastolic 63–103; PULSE 69–83; RESP 16–26; TEMP 36.2–43; O2SAT 94–99
[2022-07-28 06:35] LABS: Urine Pregnancy, HCG Qual. Negative (Negative)
--- NOTE | 2022-07-28 08:41 | P.OP_ITS ---
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 Left knee marked with a yes and my initials. Taken the operating room placed upon operating bed. General anesthesia ministered airway secured. Left lower extremity prepped and draped within the knee alonso. Once prepped and draped final operative timeout performed to identify proper patient procedure and extremity. Everyone involved in the case agreed. No counter indications to beginning. Did receive preoperative antibiotics. Marking pen was used to dony bony landmarks of the knee and standard portal sites. Esmarch was used to exsanguinate extremity pneumatic tourniquet inflated to 300 mmHg. Skin knife was used to incise standard anterior lateral portal brittny nt with trocar was placed in the patellofemoral joint exchange with a camera. Within the patellofemoral joint I swept directly into the medial joint line with the anterior medial portal was made under direct visualization. This was exchanged with a probe there was evidence of complex tearing the posterior horn of the medial meniscus using a combination of straight biter and sucker shaver partial medial meniscectomy was performed back to stable rim. Within the medial joint line there was significant grade III chondromalacia of the medial femoral condyle and there was an area of loose frayed cartilage that was adjacent to the meniscus tear which was lightly debrided with a sucker shaver. Attention was then brought to the intercondylar notch ACL was seen and intact. Edges brought to the lateral joint line within the lateral joint line there was thinning and a tear of the posterior horn of the lateral meniscus with adjacent chondromalacia at the meniscal tear using a combination of straight biter and sucker shaver partial lateral meniscectomy was also performed back to stable rim. So into the medial lateral gutters without any other evidence of pathology. Placed the camera back in the patellofemoral joint within the patellofemoral joint there was evidence of grade 3 of 4 chondromalacia of the trochlea and grade III chondromalacia of the patella. Cameras removed the joint was drained. Local anesthesia filtrated the portal sites quarter percent Marcaine. Sterile dressing placed Frederick bandage placed from toe to thigh patient waken anesthesia taken recovery stable condition Tourniquet time (min): 22 Condition: stable Disposition: PACU Complications:: None apparent
--- NOTE | 2022-07-28 09:11 | PC.NURSE ---
0908-detailed report called to ANGEL LUIS Tsang 0910-pt transported to post op via stretcher w/anita rails up and left in care of ANGEL LUIS Tsang with bed locked in lowest position, vss, pt stable
--- NOTE | 2022-07-28 13:19 | EXP.ANES.II ---
[facility] Anesthesia Record Part II Anesthesia Record Part II Discharge Time: 09:00 Destination: Surgical Day Care (OP Surgery) PACU nurse assessment reviewed?: Yes Patient Condition:: Good Anesthesia Complications:: None Swallowing reflex intact?: Yes Cyanosis?: No Blood Pressure: 124/69 Pulse Rate: 72 Temperature: 97.5 F Mental Status: Alert & Oriented Pain level:: 0 Nausea and/or vomitting:: None Intake, IV Amount: 0
== END 2022-07-28 09:40 | disposition home or self-care (01) ==
PROVIDERS: PCP Nurse Practitioner Family; Visit Provider Orthopaedic Surgery
PROC: (CPT 29870; principal; 2022-07-28 07:30)
DX: S83.232A Complex tear of medial meniscus, current injury, left knee, initial encounter (principal); S83.272A Complex tear of lateral meniscus, current injury, left knee, initial encounter; F17.210 Nicotine dependence, cigarettes, uncomplicated; Z79.899 Other long term (current) drug therapy; I10 Essential (primary) hypertension; X50.1XXA Overexertion from prolonged static or awkward postures, initial encounter; M22.42 Chondromalacia patellae, left knee
CPT/HCPCS: 29880; 81025; 96374; J2405

== ENCOUNTER 2022-11-03 19:29 | Emergency (ER) | payer BC, SELFPAY ==
[2022-11-03 19:30] VITALS: BP 157/68; PULSE 117; RESP 25; TEMP 36.6; O2SAT 86; BMI 59.7
--- NOTE | 2022-11-03 19:42 | ECG_ITS ---
APPROVED REPORT Exam: Resting ECG HR:119 bpm ECG Measurements Heart Rate 119 AXES NH 140 P 81 QRSd 92 QRS 72 QT 332 T 73 QTc 402 Conclusion SINUS TACHYCARDIA POSSIBLE RIGHT ATRIAL ENLARGEMENT [0.25mV P-WAVE] POSSIBLE LEFT ATRIAL ENLARGEMENT [-0.1mV P-WAVE IN V1/V2] MODERATE ST DEPRESSION [0.05+ mV ST DEPRESSION] ABNORMAL ECG UNCONFIRMED REPORT Electronically signed by : Gilmer Ferrer MD 11/04/2022 12:06:43
--- NOTE | 2022-11-03 19:53 | XR_ITS ---
PROCEDURE INFORMATION: Exam: XR Chest Exam date and time: 11/03/2022 8:13 PM Age: 52 years old Clinical indication: Shortness of breath; Additional info: SOB TECHNIQUE: Imaging protocol: Radiologic exam of the chest. Views: 1 view. COMPARISON: CR XR CHEST 2V 07/26/2022 1:11 PM FINDINGS: Lungs: Unremarkable. No consolidation. Pleural spaces: Unremarkable. No pleural effusion. No pneumothorax. Heart/Mediastinum: Unremarkable. No cardiomegaly. Bones/joints: Unremarkable. IMPRESSION: No acute findings.
[2022-11-03 20:21] LABS: Basophils # 0.1 K/mm3 (0-0.2); Eosinophils # 0.1 K/mm3 (0.0-0.4); Eosinophils % 0.9 % (0.1-12.0); Hematocrit 48.8 % (37.0-47.0); Hemoglobin 15.9 g/dL (12.2-16.2); Lymphocytes # 3.7 K/mm3 (0.7-4.5); Lymphocytes % 57.2 % (10-50); Mean Corpuscular HGB Conc 32.6 g/dL (31.8-35.4); Mean Corpuscular Hemoglobin 28.7 pg (27.0-31.2); Mean Corpuscular Volume 87.8 fl (81-99); Mean Platelet Volume 9.6 fl (7.4-10.4); Monocytes # 0.3 K/mm3 (0.1-1.0); Monocytes % 4.6 % (1.7-9.3); Neutrophils # 2.4 K/mm3 (1.8-7.8); Neutrophils % 36.3 % (37.0-80.0); Platelet Count 372 K/mm3 (142-424); Red Blood Count 5.56 M/mm3 (4.20-5.40); Red Cell Distribution Width 14.9 % (11.5-17.5); White Blood Count 6.5 K/mm3 (4.8-10.8)
[2022-11-03 20:28] LABS: Alanine Aminotransferase 24 U/L (12-78); Albumin Level 3.9 g/dl (3.5-5.0); Albumin/Globulin Ratio 1.1 (1.1-1.8); Alkaline Phosphatase 130 U/L (38-126); Aspartate Amino Transferase 33 U/L (14-36); Bilirubin,Total 0.5 mg/dl (0.2-1.3); Blood Urea Nitrogen 19 mg/dl (7-17); Calcium 8.5 mg/dl (8.4-10.2); Carbon Dioxide 31 mmol/L (22.0-30.0); Chloride 102 mmol/L (98-107); Creatinine Clearance Estimated 89 mL/min (50-200); Estimated Glomerular Filt Rate 88 ml/min (>60); GFR (African American) 107 ML/MIN (>60); Globulin 3.5 g/dL (1.3-3.2); Glucose 122 mg/dl (74-100); Sodium 137 mmol/L (136-145); Total Protein,Serum 7.4 g/dl (6.3-8.2)
[2022-11-03 20:30] VITALS: BP 133/47; PULSE 96; RESP 29; O2SAT 95
--- NOTE | 2022-11-03 20:32 | HMH.EDGENADL ---
Discharge Plan Disposition Patient Disposition: Home, Self-Care Condition: Fair Prescriptions Prescriptions: New cefdinir 300 mg capsule 300 mg PO BID 5 Days Qty: 10 0RF No Action hydroxychloroquine 200 mg tablet 200 mg PO BID Label Comments: TAKE 1 TABLET BY MOUTH TWICE DAILY aspirin [Adult Aspirin Regimen] 81 mg tablet,delayed release (DR/EC) 81 mg PO DAILY furosemide [Lasix] 40 mg Tablet 40 mg PO BID sertraline [Zoloft] 50 mg Tablet 50 mg PO DAILY Entresto 24-26 mg tablet 1 tab PO BID spironolactone 50 MG tablet 25 mg PO DAILY albuterol sulfate 6.7 GM HFA aerosol inhaler 2 puffs IH Q4HP PRN (Reason: shortness of air) Referrals Follow up/Referrals: Terra Lebron APRN [Primary Care Provider] - See instructions Clinical Impressions Clinical Impression: Allergic reaction Instructions Patient Instructions: DI for Adverse Drug Reaction -- Allergic Discharge ED Provider: Damian Meraz General Adult HPI General Chief complaint: Shortness of Breath/Dyspnea Stated complaint: chest pain Time Seen by Provider: 11/03/22 19:45 Mode of Arrival: Family Vehicle Source of Information: Patient Limitations: No Limitations Description of Symptoms (Recalled from ER Triage Doc. by RN): Pt c/o SOA, red rash area to BUE, chest tightness, and episode of diaphoresis that began suddenly and shortly after taking her 1st dose of Amoxicillin. States here PCP prescribed it today for a sinus & ear infection. Pt does report a hx of taking penicillins without any SE's, however she is concerned of a possible reaction d/t her mother developing a penicillin recation late in life. History of Present Illness HPI narrative: Patient is a 52-year-old female past medical history of asthma, pulmonary hypertension, hypertension who presents with concern for allergic reaction. Patient states that she saw her PCP earlier today and was diagnosed with a sinus and ear infection. She was prescribed amoxicillin. She states that she has taken amoxicillin multiple times in her life without any reaction. She says that approximately 20 to 30 minutes after she took it she started to get very hot and sweaty. She started feeling short of breath and felt tightness in her chest as well. She started develop a rash on both of her arms so she immediately came here. She says that her mother had a reaction to penicillin later in life as well. Upon arrival here she continues to feel short of breath. Locates her rash mainly on bilateral arms. Denies any difficulty swallowing. Related Data Home Medications Medication Instructions Recorded Confirmed aspirin 81 mg tablet,delayed 81 mg PO DAILY heart health 12/02/21 11/03/22 release (Adult Aspirin Regimen) hydroxychloroquine 200 mg tablet 200 mg PO BID LUPUS 12/02/21 11/03/22 albuterol sulfate 90 mcg/actuation 2 puffs inhalation Q4HP PRN 01/16/22 11/03/22 aerosol inhaler shortness of air furosemide 40 mg tablet (Lasix) 40 mg PO BID Fluid 06/12/22 11/03/22 sacubitril 24 mg-valsartan 26 mg 1 tab PO BID . 06/12/22 11/03/22 tablet (Entresto) sertraline 50 mg tablet (Zoloft) 50 mg PO DAILY Depression 06/12/22 11/03/22 spironolactone 50 mg tablet 25 mg PO DAILY COPD/CHF 06/12/22 11/03/22 Previous Rx's Medication Instructions Recorded cefdinir 300 mg capsule 300 mg PO BID 5 days #10 caps 11/03/22 Allergies Allergy/AdvReac Type Severity Reaction Status Date / Time No Known Drug Allergies Allergy Unknown Verified 09/07/22 09:59 [NO KNOWN DRUG ALLERGIES] [facility] Disclaimer: The information contained in this section may have been updated after the patient was seen, as this information can be updated by other users. Medical History (Updated 11/03/22 @ 22:09 by Damian Meraz MD) Allergies Arthritis Asthma Cholecystectomy planned Chronic cough Congestive heart failure Daytime somnolence Depression Dizziness Gallbl
[2022-11-03 20:37] LABS: MANUAL DIFFERENTIAL MANUAL DIFFERENTIAL (MANUAL DIFF)
[2022-11-03 20:45] LABS: NT Pro Brain Natriuretic Pep. 37.9 pg/mL (0-125)
[2022-11-03 20:46] LABS: Troponin I < 0.01 ng/ml (0.00-0.034)
[2022-11-03 21:00] VITALS: BP 129/57; PULSE 91; RESP 22; O2SAT 91
[2022-11-03 21:02] LABS: Lymphocytes % 48 % (10-50); Monocytes % 3 % (2-9); Neutrophils % 48 % (42-76); Platelet Estimate Normal; Total Cells Counted 100
[2022-11-03 21:03] LABS: RBC Morphology Normal
[2022-11-03 21:30] VITALS: BP 125/66; PULSE 87; RESP 25; O2SAT 90
[2022-11-03 22:10] VITALS: BP 125/65; PULSE 88; RESP 18; TEMP 36.6; O2SAT 99
== END 2022-11-03 22:42 | disposition home or self-care (01) ==
PROVIDERS: Family Medicine; Emergency Provider Student in an Organized Health Care Education/Training Program; PCP Nurse Practitioner Family
DX: L50.0 Allergic urticaria (principal); R07.89 Other chest pain; J45.909 Unspecified asthma, uncomplicated; I27.20 Pulmonary hypertension, unspecified; R05.3 Chronic cough; I50.9 Heart failure, unspecified; I11.0 Hypertensive heart disease with heart failure; F17.210 Nicotine dependence, cigarettes, uncomplicated; Z98.51 Tubal ligation status; Z83.3 Family history of diabetes mellitus; Z83.2 Family history of diseases of the blood and blood-forming organs and certain disorders involving the immune mechanism
CPT/HCPCS: 71045; 80053; 83880; 84484; 85007; 85025; 93005; 96374; 96375; 99285

== ENCOUNTER → 2023-01-24 15:39 | Outpatient (CLI) | payer BC, SELFPAY ==
--- NOTE | 2023-01-24 15:42 | XR_ITS ---
FINAL REPORT CLINICAL HISTORY: Left heel pain COMPARISON: None FINDINGS: LEFT FOOT Three views of the left foot demonstrate no acute fracture or dislocation. On the lateral view there is a moderate Miguel A deformity. There are hypertrophic changes over the dorsal aspect of the intertarsal joint. The visualized joint spaces are normally aligned. The soft tissues are unremarkable. IMPRESSION: Moderate Miguel A deformity. Hypertrophic changes without acute bony abnormality. Reviewed, Interpreted and Dictated by Vinh Li MD Transcribed by Blanca Villegas Authenticated and [facility]
--- NOTE | 2023-01-24 15:42 | XR_ITS ---
FINAL REPORT CLINICAL HISTORY: Right heel pain COMPARISON: None FINDINGS: RIGHT FOOT 3 views of the right foot were obtained. There is no acute fracture or dislocation. Moderate Miguel A deformity. There is a small plantar spur. Visualized joint spaces are normally aligned. Soft tissue swelling over the dorsum of the foot. IMPRESSION: Moderate Miguel A deformity. Soft tissue swelling with no acute bony abnormality. Reviewed, Interpreted and Dictated by Vinh Li MD Transcribed by Blanca Villegas Authenticated and [facility]
== END ==
LOC: RAD 15:40
PROVIDERS: PCP Nurse Practitioner Family; Visit Provider Podiatrist
DX: M79.672 Pain in left foot (principal); M79.671 Pain in right foot
CPT/HCPCS: 73630

== ENCOUNTER 2023-01-25 15:22 | Outpatient (RCR) | payer BC, SELFPAY | END 2023-01-25 16:30 | disposition home or self-care (01) | LOC: PT 15:22 | PROVIDERS: Visit Provider Podiatrist | DX: M76.62 Achilles tendinitis, left leg (principal); M92.61 Juvenile osteochondrosis of tarsus, right ankle | CPT/HCPCS: 97760 ==

== ENCOUNTER 2023-12-06 10:15 | Outpatient (CLI) | payer BC, SELFPAY ==
--- NOTE | 2023-12-06 10:33 | XR_ITS ---
FINAL REPORT CLINICAL HISTORY: lt knee pain COMPARISON: None FINDINGS: Three views of the left knee reveal no evidence of fracture or dislocation. The bony alignment is normal. Mild and moderate degenerative change is present. There is moderate medial compartment narrowing. There is no evidence of joint effusion. No localized soft tissue abnormality is seen. IMPRESSION: No acute abnormality identified. Mild and moderate degenerative change with moderate medial compartment narrowing. Reviewed, Interpreted and Dictated by Nawaf Yost III, MD Transcribed by Bruna Roberto Authenticated and [facility]
== END 2023-12-06 23:59 ==
LOC: RAD 10:16
PROVIDERS: PCP Nurse Practitioner Family; Visit Provider Orthopaedic Surgery
DX: S83.272A Complex tear of lateral meniscus, current injury, left knee, initial encounter (principal)
CPT/HCPCS: 73562

== ENCOUNTER 2023-12-07 12:03 | Outpatient (CLI) | payer BC, SELFPAY ==
[2023-12-07 12:12] LABS: Microscopic, Urine URINE MICROSCOPIC (MICROSCOPIC)
[2023-12-07 12:49] LABS: Basophils # 0.1 K/mm3 (0-0.2); Basophils % 1.3 % (0.1-2.0); Eosinophils # 0.2 K/mm3 (0.0-0.4); Eosinophils % 2.4 % (0.1-12.0); Hematocrit 47.9 % (37.0-47.0); Hemoglobin 14.7 g/dL (12.2-16.2); Lymphocytes # 1.9 K/mm3 (0.7-4.5); Lymphocytes % 25.9 % (10-50); Mean Corpuscular HGB Conc 30.6 g/dL (31.8-35.4); Mean Corpuscular Volume 91.4 fl (81-99); Mean Platelet Volume 8.7 fl (7.4-10.4); Monocytes # 0.4 K/mm3 (0.1-1.0); Monocytes % 4.9 % (1.7-9.3); Neutrophils # 4.7 K/mm3 (1.8-7.8); Neutrophils % 65.7 % (37.0-80.0); Platelet Count 248 K/mm3 (142-424); Red Blood Count 5.24 M/mm3 (4.20-5.40); Red Cell Distribution Width 14.7 % (11.5-17.5); White Blood Count 7.2 K/mm3 (4.8-10.8)
[2023-12-07 13:05] LABS: Appearance,Urine CLEAR (Clear); Bilirubin,Urine Negative (Negative); Blood, Urine Negative (Negative); Glucose,Urine (UA) Negative (Negative); Ketones,Urine Negative (Negative); Leukocyte Esterase,Urine 1+ (Negative); Nitrate,Urine Negative (Negative); Protein,Urine Negative (Negative); Urobilinogen,Urine 0.2 EU/dl (0.2)
[2023-12-07 13:09] LABS: Hemoglobin A1C 6.2 % (4.0-6.0)
[2023-12-07 14:15] LABS: Chloride 98 mmol/L (98-107)
[2023-12-07 14:16] LABS: Potassium 3.9 mmoL/L (3.5-5.1); Sodium 138 mmol/L (136-145)
[2023-12-07 14:18] LABS: Alanine Aminotransferase 27 U/L (12-78); Anion Gap 5.9 mEq/L (5-15); Aspartate Amino Transferase 34 U/L (14-36); Blood Urea Nitrogen 17 mg/dl (7-17); Carbon Dioxide 38 mmol/L (22.0-30.0); Estimated Glomerular Filt Rate 88 ml/min (>60); GFR (African American) 106 ML/MIN (>60)
[2023-12-07 14:19] LABS: Albumin Level 3.8 g/dl (3.5-5.0); Albumin/Globulin Ratio 1.2 (1.1-1.8); Alkaline Phosphatase 136 U/L (38-126); Bilirubin,Total 0.6 mg/dl (0.2-1.3); Calcium 9.7 mg/dl (8.4-10.2); Globulin 3.1 g/dL (1.3-3.2); Glucose 119 mg/dl (74-100); Total Protein,Serum 6.9 g/dl (6.3-8.2)
[2023-12-07 14:46] LABS: Color,Urine Yellow (Yellow)
[2023-12-07 14:47] LABS: Chol/HDL Ratio 3.8 (1-3.5); Cholesterol 183 mg/dl (140-200); HDL Cholesterol 48 mg/dl (40-60); Triglycerides 71 mg/dl (30-150); VLDL Cholesterol 14 mg/dL (0-40)
[2023-12-07 14:58] LABS: Direct LDL Cholesterol 95.83 mg/dL (100-129)
[2023-12-07 15:18] LABS: Thyroid Stimulating Hormone 1.73 uIU/mL (0.465-4.68)
[2023-12-07 15:37] LABS: Vitamin B12 537 pg/mL (239-931)
[2023-12-07 15:47] LABS: WBC,Urine Occasional #/hpf (0-3)
[2023-12-08 10:10] LABS: Complement C3 191 mg/dL (82-167)
[2023-12-10 12:20] LABS: Anti-DNA (DS) Ab Qn 18 IU/mL (0-9)
[2023-12-17 21:17] LABS: 1,25 Dihydroxy Vitamin D 40 pg/mL (.); 1,25-Dihydroxy, Vitamin D-2 <10 pg/mL (.); 1,25-Dihydroxy, Vitamin D-3 36 pg/mL (.)
== END 2023-12-07 23:59 ==
LOC: LAB 12:05
PROVIDERS: Internal Medicine; PCP Nurse Practitioner Family; Visit Provider Nurse Practitioner Family
DX: R53.81 Other malaise (principal); M15.8 Other polyosteoarthritis; M32.8 Other forms of systemic lupus erythematosus; R53.83 Other fatigue; R40.0 Somnolence; R73.09 Other abnormal glucose; E66.01 Morbid (severe) obesity due to excess calories; Z68.43 Body mass index [BMI] 50.0-59.9, adult; Z79.899 Other long term (current) drug therapy; B96.89 Other specified bacterial agents as the cause of diseases classified elsewhere
CPT/HCPCS: 36415; 80053; 80061; 81001; 82565; 82607; 82652; 83036; 84443; 85025; 86161; 86225; 87086

== ENCOUNTER 2023-12-17 13:38 | Outpatient (CLI) | payer BC, SELFPAY ==
--- NOTE | 2023-12-17 13:42 | MR_ITS ---
FINAL REPORT CLINICAL HISTORY: Lt Knee Pain. medial sided knee pain. prior history knee surgery 2021. no injury or trauma COMPARISON: None FINDINGS: Multi planar MR imaging was performed of the left knee. The anterior cruciate ligament is not well-visualized and may be degenerative. The posterior cruciate ligament is intact. The quadriceps and patellar tendons are intact. The medial and lateral menisci are intact without evidence of tear. There is medial extrusion of the posterior horn of the medial meniscus. There is abnormal signal within the substance of the meniscus. The medial and lateral retinacula appear intact. There are moderate hypertrophic changes at the joint margin. There is a moderate joint effusion. There is narrowing of the lateral articular facet. No evidence of soft tissue inflammatory reaction. IMPRESSION: Abnormal appearance of the anterior cruciate ligament may be due to chronic degeneration or chronic tear. Extrusion posterior horn medial meniscus, also likely related to underlying tear. Hypertrophic changes of osteoarthritis of the medial joint margin. Reviewed, Interpreted and Dictated by Vinh Li MD Transcribed by Blanca Villegas Authenticated and . [facility]
== END 2023-12-17 23:59 ==
LOC: RAD 13:39
PROVIDERS: PCP Nurse Practitioner Family; Visit Provider Orthopaedic Surgery
DX: M25.562 Pain in left knee (principal)
CPT/HCPCS: 73721

== ENCOUNTER 2024-01-18 12:42 | Outpatient (CLI) | payer BC, SELFPAY ==
--- NOTE | 2024-01-18 12:50 | ECG_ITS ---
APPROVED REPORT Exam: Resting ECG HR:98 bpm ECG Measurements Heart Rate 98 AXES VA 167 P 68 QRSd 104 QRS 61 QT 347 T 33 QTc 402 Conclusion SINUS RHYTHM WITH OCCASIONAL VENTRICULAR PREMATURE COMPLEXES LOW QRS VOLTAGE IN PRECORDIAL LEADS [QRS DEFLECTION < 1.0 mV IN CHEST LEADS] BORDERLINE ECG UNCONFIRMED REPORT Electronically signed by : Gilmer Ferrer MD 01/18/2024 15:51:25
--- NOTE | 2024-01-18 13:02 | XR_ITS ---
FINAL REPORT TECHNIQUE: Chest PA & Lateral CLINICAL HISTORY: HTN smoker FINDINGS: 2 views of the chest were performed. The heart size is normal. The mediastinum is within normal limits. There is no acute cardiopulmonary process. There are no pleural effusions. There is no pneumothorax. The bony thorax appears intact. IMPRESSION: No acute cardiopulmonary process. Reviewed, Interpreted and Dictated by Vinh Li MD Transcribed by Gloria Knowles Authenticated and [facility]
[2024-01-18 13:12] LABS: Basophils # 0.1 K/mm3 (0-0.2); Basophils % 1.1 % (0.1-2.0); Eosinophils # 0.2 K/mm3 (0.0-0.4); Eosinophils % 2.6 % (0.1-12.0); Hematocrit 48.6 % (37.0-47.0); Hemoglobin 15.4 g/dL (12.2-16.2); Lymphocytes # 1.6 K/mm3 (0.7-4.5); Lymphocytes % 23.8 % (10-50); Mean Corpuscular HGB Conc 31.6 g/dL (31.8-35.4); Mean Corpuscular Hemoglobin 28.4 pg (27.0-31.2); Mean Corpuscular Volume 89.8 fl (81-99); Monocytes # 0.4 K/mm3 (0.1-1.0); Monocytes % 6.2 % (1.7-9.3); Neutrophils # 4.5 K/mm3 (1.8-7.8); Neutrophils % 66.3 % (37.0-80.0); Platelet Count 271 K/mm3 (142-424); Red Blood Count 5.42 M/mm3 (4.20-5.40); Red Cell Distribution Width 15.4 % (11.5-17.5); White Blood Count 6.7 K/mm3 (4.8-10.8)
[2024-01-18 13:49] LABS: Alanine Aminotransferase 22 U/L (12-78); Albumin Level 3.9 g/dl (3.5-5.0); Albumin/Globulin Ratio 1.1 (1.1-1.8); Alkaline Phosphatase 120 U/L (38-126); Anion Gap 7.7 mEq/L (5-15); Aspartate Amino Transferase 29 U/L (14-36); Bilirubin,Total 0.8 mg/dl (0.2-1.3); Blood Urea Nitrogen 9 mg/dl (7-17); Calcium 9.8 mg/dl (8.4-10.2); Carbon Dioxide 38 mmol/L (22.0-30.0); Chloride 96 mmol/L (98-107); Estimated Glomerular Filt Rate 75 ml/min (>60); GFR (African American) 91 ML/MIN (>60); Globulin 3.4 g/dL (1.3-3.2); Glucose 94 mg/dl (74-100); Potassium 4.7 mmoL/L (3.5-5.1); Sodium 137 mmol/L (136-145); Total Protein,Serum 7.3 g/dl (6.3-8.2)
== END 2024-01-18 23:59 | disposition home or self-care (01) ==
LOC: LAB 12:43
PROVIDERS: PCP Nurse Practitioner Family; Visit Provider Orthopaedic Surgery
DX: Z01.818 Encounter for other preprocedural examination (principal); M23.92 Unspecified internal derangement of left knee
CPT/HCPCS: 36415; 71046; 80053; 85025; 93005

== ENCOUNTER 2024-01-23 08:10 | Day surgery (SDC) | payer BC, SELFPAY ==
[2024-01-23] VITALS (11 sets, daily range): BP systolic 118–164; BP diastolic 68–104; PULSE 81–98; RESP 16–24; TEMP 36.1–36.7; O2SAT 4–96; BMI 57.6
[2024-01-23] MEDS: LACTATED RINGERS 1000ML 1,000 ML 25 ML IV (08:24)
--- NOTE | 2024-01-23 10:41 | P.PNANES_ITS ---
[facility] Disclaimer: The information contained in this section may have been updated after the patient was seen, as this information can be updated by other users. Medical History Depression Arthritis Congestive heart failure Cholecystectomy planned Chronic cough Asthma Gallbladder disease Allergies Daytime somnolence NIKKI (obstructive sleep apnea) Restless sleeper Snoring Weight gain Morbid obesity HTN (hypertension) Dizziness Syncope Surgical History H/O arthroscopic knee surgery Hx of cardiac cath Hx of tubal ligation History of endometrial ablation Family History Mother Blood disorder Mother Diabetes Social History (Updated 01/23/24 @ 08:33 by Lexie Eastman RN) Smoking Status: Current every day smoker tobacco type: cigarettes packs per day: 1 years smoked: 30 second hand exposure: Yes alcohol intake: never substance use type: denies use current occupational status: employed Travel in the last 8 weeks: None household members: spouse housing: house 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 knee scope w/PMM Consent for Planned Operative Procedure(s) Verified: Yes Verified Documents: Surgical Consent and History and Physical NPO Status Verified Time NPO: 22:00 Chart Verification Results Verified: CBC, BMP, ECG and Chest Xray Additional verifications Patient : No Anesthesia Reactions: No Hx Blood Transfusions: No Blood Transfusion Reaction: No Cardiovascular Assessment Heart Sounds: S1 & S2 Pulse Rhythm: Irregular Peripheral Edema: Yes (2+ SEUN LE) Airway Assessment Mallampati Score:: Class II C-Spine Mobility Assessed: Yes (FROM) TMJ Mobility Assessed: Yes Dentition: Poor Dentition (Upper missing, Bottom intact. Nothing loose per pt.) Neurological Assessment Level of Consciousness: Awake, Alert, Appropriate and Follows Commands Hx Seizures: No Numbness or tingling in extremities: No Anesthesia Plan Anesthesia Risk discussed: Yes Anesthesia Plan: Verified ASA Class: III Anesthesia Type: General
[2024-01-23] MEDS: CLINDAMYCIN PHOSPHATE/D5W 900 MG/50 ML PIGGYBACK 106 MG IV (11:14)
[2024-01-23] MEDS: RINGERS SOLUTION,LACTATED 6,000 ML 25 ML IR (11:14)
[2024-01-23] MEDS: BUPIVACAINE 0.25% 30ML VIAL 75 MG (11:18)
--- NOTE | 2024-01-23 11:47 | P.OP_ITS ---
Date of procedure: 01/23/24 Pre-op Diagnosis:: Left knee medial meniscus tear and osteoarthritis Post-op Diagnosis:: Left knee medial meniscus tear complex tear posterior horn medial meniscus Left knee grade 3 and small area of grade IV chondromalacia medial femoral condyle Left knee partial tear ACL Left knee significant synovitis patellofemoral joint medial joint line medial gutter Procedure performed:: Left knee arthroscopy with partial medial meniscectomy Left knee arthroscopy with chondromalacia medial femoral condyle loose fraying cartilage Left knee extensive debridement synovitis and patellofemoral joint medial gutter and debridement of partial tear ACL Surgeon:: Ilir Dc DO PIPE SMOKING MACHINE OFFBEARER:: Giuliana Gutierrez Anesthesia: GETA Estimated blood loss (mL): 0 Operative findings:: See dictation Operative note:: Patient is identified preoperatively. Left knee marked with yes my initials. Transferred operative suite. Placed upon operating bed. General anesthesia administered airway secured. Left lower extremity was then prepped and draped within the knee alonso. Once prepped and draped final operative timeout performed to identify proper patient procedure and extremity. Everyone involved the case agreed. No counter indications to beginning. Did receive preoperative antibiotics of clindamycin. Marking pen was used to dony bony landmarks of the knee and standard portal sites. Esmarch was used to exsanguinate the extremity pneumatic tourniquet was inflated to 300 mmHg. Skin knife was used incise standard anterior lateral portal and blunt with trocar was placed in the patellofemoral joint this exchanged with a camera. Upon entering the patellofemoral joint there was a large return of normal colored effusion. Camera swept into the medial joint line with the anterior medial portal was made with the help with 18-gauge spinal needle. This was then exchanged with a probe. There was tearing the posterior horn of the medial meniscus complex reaching the meniscal root but the meniscal root was not detached. Using a combination of straight biter and sucker shaver partial medial meniscectomy was performed back to stable rim. Upon sweeping into the medial gutter there is a large amount of scarring and synovitis present which was impinging and rubbing on the medial femoral condyle and there was subsequent softening and chondromalacia of the medial femoral condyle so sucker shaver was used to debride this impinging tissue. Tensions then brought back in the patellofemoral joint within the patellofemoral joint there was partial tearing of the ACL with stump present this was debrided with a sucker shaver. There is also significant synovitis patellofemoral joint which was debrided. Tensions brought in the lateral joint line within the lateral joint line there was some mild softening of the lateral cartilage and some mild fraying of the lateral meniscus but no aneta tear of the lateral meniscus. Attention was then brought back into the medial and lateral gutters back in the patellofemoral joint there was some loose aneta cartilage undersurface of the patella which was debrided some loose aneta cartilage of the medial femoral condyle which was debrided. Joint was drained. Local anesthesia filtrated the portal sites. Skin closed with nylon stitch. Sterile dressing placed from toe to thigh patient waken anesthesia taken recovery stable condition Condition: stable Disposition: PACU Complications:: None apparent
--- NOTE | 2024-01-23 11:58 | P.PNANES_ITS ---
[facility] Anesthesia Record Part I Anesthesia Record I Intake, IV Amount: 300 Hydration: Adequate Estimated blood loss (mL): 5 Urine output (mL): 0 Blood Products used (#): none Blood Pressure: 127/75 SaO2: 90 Pulse Rate: 94 Airway Patency: Patent Respiratory Rate: 24 Temperature: 98.1 F Patient is:: Awake (Talking) and Stable Stable to PACU at:: 11:55
[2024-01-23] MEDS: MORPHINE 2MG/ML SYRINGE 2 MG (11:59)
[2024-01-23] MEDS: KETOROLAC 30MG/ML VIAL 30 MG IV (12:05)
--- NOTE | 2024-01-23 12:29 | SUR.PHASEI ---
1210: Patient states she is more uncomfortable than in pain. Patient states pain level is acceptable.
--- NOTE | 2024-01-23 15:43 | EXP.ANES.II ---
[facility] Anesthesia Record Part II Anesthesia Record Part II Discharge Time: 12:30 Destination: Surgical Day Care (OP Surgery) PACU nurse assessment reviewed?: Yes Patient Condition:: Good Anesthesia Complications:: None Swallowing reflex intact?: Yes Airway Patency: Patent Cyanosis?: No Blood Pressure: 150/79 SaO2: 4 Respiratory Rate: 18 Pulse Rate: 84 Temperature: 98.1 F Mental Status: Alert & Oriented Pain level:: 3 Nausea and/or vomitting:: None Intake, IV Amount: 300 Hydration: Adequate
== END 2024-01-23 13:14 | disposition home or self-care (01) ==
PROVIDERS: PCP Nurse Practitioner Family; Visit Provider Orthopaedic Surgery
PROC: (CPT 29870; principal; 2024-01-23 09:45)
DX: S83.232A Complex tear of medial meniscus, current injury, left knee, initial encounter (principal); M65.862 Other synovitis and tenosynovitis, left lower leg; M94.262 Chondromalacia, left knee; S83.512A Sprain of anterior cruciate ligament of left knee, initial encounter; F17.210 Nicotine dependence, cigarettes, uncomplicated; I11.0 Hypertensive heart disease with heart failure; I50.9 Heart failure, unspecified; Z79.899 Other long term (current) drug therapy
CPT/HCPCS: 29881; 96374

== ENCOUNTER 2024-04-03 00:04 | Observation (INO) | payer BC, SELFPAY ==
[2024-04-03] VITALS (14 sets, daily range): BP systolic 108–159; BP diastolic 63–92; PULSE 82–94; RESP 16–26; TEMP 36.4–37; O2SAT 87–98; BMI 51.6; BMI 62.6
--- NOTE | 2024-04-03 00:10 | XR_ITS ---
PROCEDURE INFORMATION: Exam: XR Chest Exam date and time: 04/03/2024 12:17 AM Age: 53 years old Clinical indication: Shortness of breath and wheezing; Additional info: SOA wheezing TECHNIQUE: Imaging protocol: Radiologic exam of the chest. Views: 1 view. COMPARISON: CR XR CHEST 2V 01/18/2024 1:03 PM FINDINGS: Lungs: Unremarkable. No consolidation. Pleural spaces: Unremarkable. No pleural effusion. No pneumothorax. Heart/Mediastinum: Unremarkable. No cardiomegaly. Vasculature: Unremarkable. Bones/joints: Unremarkable. IMPRESSION: No acute findings.
--- NOTE | 2024-04-03 00:12 | HMH.EDCP ---
Discharge Plan Disposition Patient Disposition: Admitted Prescriptions Prescriptions: No Action hydroxychloroquine 200 mg tablet 200 mg PO BID Patient Comments: TAKE 1 TABLET BY MOUTH TWICE DAILY diclofenac sodium [Voltaren Arthritis Pain] 1 % gel 4 g topical QID PRN (Reason: pain) Qty: 100 2RF Rx Instructions: apply to single knee, ankle, foot; for foot includes sole/toes/top of foot as needed for arthritis pain ipratropium-albuterol 0.5 mg-3 mg(2.5 mg base)/3 mL solution for nebulization 3 ml inhalation QID PRN (Reason: Asthma) Patient Comments: USE 1 AMPULE IN NEBULIZER 4 TIMES DAILY NEEDED FOR WHEEZING FOR 30 DAYS sertraline 100 mg tablet 100 mg PO DAILY spironolactone 25 mg tablet 25 mg PO DAILY ropinirole 0.25 mg tablet 0.25 mg PO DAILY bupropion HCl 150 mg tablet extended release 24 hr 150 mg PO DAILY Patient Comments: TAKE 1 TABLET BY MOUTH EVERY 24 HOURS FOR 30 DAYS hydrocodone-acetaminophen 5-325 mg tablet 1 tab PO Q4H PRN (Reason: post op pain) Qty: 30 0RF furosemide [Lasix] 40 mg Tablet 40 mg PO BID sertraline [Zoloft] 50 mg Tablet 50 mg PO DAILY spironolactone 50 MG tablet 25 mg PO DAILY celecoxib [Celebrex] 50 mg Capsule 50 mg PO BID albuterol sulfate 6.7 GM HFA aerosol inhaler 2 puffs IH Q4HP PRN (Reason: shortness of air) Referrals Follow up/Referrals: Terra Lebron APRN [Primary Care Provider] - See instructions Clinical Impressions Clinical Impression: Shortness of breath, Fluid overload Discharge ED Provider: Fritz Rawls HPI General Chief Complaint: Shortness of Breath/Dyspnea Stated Complaint: soa Time Seen by Provider: 04/03/24 00:07 History of Present Illness HPI narrative: 53-year-old female with a history of COPD, asthma, status post left knee arthroscopy in January presents to the ER for concerns of shortness of breath. She states since her surgery in January she has had some difficulty with shortness of breath and reportedly after surgery they had difficulty getting her oxygen saturations up. Patient does not wear oxygen at home. She states the last 2 to 3 weeks her symptoms have been worse than normal despite her taking all home medications including her Lasix and spironolactone daily. Patient reports using her nebulizer and inhaler more than usual, especially today. She does not recall the number of times that she used them today but she is having significant difficulty breathing and when she checks her oxygen saturation at home after walking they will be down in the 80s. No fevers, cough, or other associated symptoms at this time. Related Data Home Medications Medication Instructions Recorded Confirmed hydroxychloroquine 200 mg tablet 200 mg PO BID LUPUS 12/02/21 03/13/24 albuterol sulfate 90 mcg/actuation 2 puffs inhalation Q4HP PRN 01/16/22 03/13/24 aerosol inhaler shortness of air furosemide 40 mg tablet (Lasix) 40 mg PO BID Fluid 06/12/22 03/13/24 sertraline 50 mg tablet (Zoloft) 50 mg PO DAILY Depression 06/12/22 03/13/24 spironolactone 50 mg tablet 25 mg PO DAILY COPD/CHF 06/12/22 03/13/24 bupropion HCl 150 mg 24 hr tablet, 150 mg PO DAILY 12/20/23 03/13/24 extended release ipratropium 0.5 mg-albuterol 3 mg 3 ml inhalation QID PRN Asthma 12/20/23 03/13/24 (2.5 mg base)/3 mL nebulization soln ropinirole 0.25 mg tablet 0.25 mg PO DAILY 12/20/23 03/13/24 sertraline 100 mg tablet 100 mg PO DAILY 12/20/23 03/13/24 spironolactone 25 mg tablet 25 mg PO DAILY 12/20/23 03/13/24 celecoxib 50 mg capsule (Celebrex) 50 mg PO BID 01/23/24 03/13/24 Previous Rx's Medication Instructions Recorded diclofenac sodium 1 % topical gel 4 g topical QID PRN pain #100 grams 01/25/23 (Voltaren Arthritis Pain) hydrocodone 5 mg-acetaminophen 325 1 tab PO Q4H PRN post op pain #30 02/07/24 mg tablet tabs Allergies Allergy/AdvReac Type Severity Reaction Status Date / Time amoxicillin Allergy Unknown Verified 03/13/24 13:48 PFSH [facility] Disclaimer: The information contained in this section may have been updated after the patient was seen, as this information can be updated by other users. Medical History Depression Arthritis Congestive heart failure Cholecystectomy planned Chronic cough Asthma Gallbladder disease Allergies Daytime somnolence NIKKI (obstructive sleep apnea) Restless sleeper Snoring Weight gain Morbid obesity HTN (hypertension) Dizziness Syncope Surgical History H/O arthroscopic knee surgery Hx of cardiac cath Hx of tubal ligation History of endometrial ablation Family History Mother Blood disorder Mother Diabetes Social History Smoking Status: Current every day smoker tobacco type: cigarettes packs per day: 1 years smoked: 30 second hand exposure: Yes alcohol intake: never substance use type: denies use current occupational status: employed Travel in the last 8 weeks: None household members: spouse housing: house 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 ROS Obtained: Yes All systems reviewed & no additional complaints except as documented Constitutional Constitutional: Denies chills, Denies fever(s), Denies headache(s) and Denies weakness Eyes Eyes: Denies change in vision ENT Ears, Nose, Mouth, and Throat: Denies dizziness, Denies headache(s), Denies nasal congestion and Denies sore throat Cardiovascular Cardiovascular: Denies chest pain, Reports dyspnea and Reports leg edema (At baseline, no worse than normal) Respiratory Respiratory: Denies cough and Reports dyspnea Gastrointestinal Gastrointestingal: Denies constipation, diarrhea, nausea or vomiting Genitourinary Female Genitourinary: Denies dysuria Musculoskeletal Musculoskeletal: Denies arthralgias, Denies myalgias, Denies numbness and Denies tingling Integumentary/Breasts Skin/Breast: Denies change in pigmentation Neurologic Neurologic: Denies dizziness, Denies headache(s), Denies numbness, Denies tingling and Denies weakness Physical Exam General General appearance: alert, in no apparent distress and obese Head Head exam: atraumatic and normocephalic Eye Eye exam: Present PERRL and EOMI ENT ENT exam: Present mucous membranes moist Neck Neck exam: Present normal inspection and full ROM Chest Chest inspection: Present symmetric chest wall rise Respiratory Respiratory exam: Present wheezes and other (Diminished breath sounds throughout with diffuse rales); Absent stridor Cardiovascular Cardiovascular exam: Present regular rate and normal rhythm Abdominal Exam Abdominal exam: Present soft; Absent distention or tenderness Extremities Exam Extremities exam: Present full ROM and edema; Absent calf tenderness Neurological Exam Neurological exam: Present alert and oriented X3; Absent motor sensory deficit Psychiatric Psychiatric exam: Present normal affect and normal mood Skin Skin exam: Present warm and dry HEART Score HEART Score HEART Score assessment performed?: Yes History (anamnesis): Slightly suspicious ECG: Non-specific disturbance Age: 45-65 years Risk factors: 3 or more risk factors Troponin: </= normal limit HEART Score: 4 Critical Care Critical Care Time Critical Care Time: Yes Attestation: On 04/03/24, the high probability of a clinically significant, sudden or life threatening deterioration of the following system(s) (respiratory, cardiac) required my full and direct attention, intervention and personal management. The time I documented below is in addition to time spent performing reported procedures but includes the following listed in this critical care notation. Total Time Total Critical Care Time: 35 Medical Decision Making Se Inquiry Pt receiving controlled substance: No Vital Signs Vital Signs: 04/03/24 00:05 Temperature 97.9 F Temperature Source Oral Pulse Rate [Right] 92 H Respiratory Rate 26 H Blood Pressure [Right Arm] 159/76 H Blood Pressure Mean [Right Arm] 103 Blood Pressure Source [Right Arm] Automatic Cuff Blood Pressure Position [Right Arm] Sitting 02 Sat by Pulse Oximetry 94 L Oxygen Delivery Method Nasal Cannula Oxygen Flow Rate (LPM) 4 Lab Data Labs: Lab Results 04/03/24 00:10: VBG pH 7.38, VBG pCO2 53.8 H, VBG pO2 38.9, VBG HCO3 30.8 H, VBG Total CO2 32.5 H, VBG O2 Saturation 76.1 H, VBG Base Excess 5.6 H, VBG Lactic Acid 1.0 04/03/24 00:20: WBC 8.2, RBC 4.87, Hgb 14.1, Hct 43.7, MCV 89.7, MCH 29.0, MCHC 32.3, RDW 15.7, Plt Count 215, MPV 9.0, Neut % (Auto) 66.1, Lymph % (Auto) 23.9, [place] % (Auto) 6.5, Eos % (Auto) 2.6, Baso % (Auto) 0.8, Neut # (Auto) 5.4, Lymph # (Auto) 2.0, [place] # (Auto) 0.5, Eos # (Auto) 0.2, Baso # (Auto) 0.1, PT 10.0 L, INR 0.88 L, Sodium 139, Potassium 4.0, Chloride 102, Carbon Dioxide 36 H, Anion Gap 5.0, BUN 12, Creatinine 1.00, Estimated Creat Clear 62, Estimated GFR 58 L, Est GFR ( Amer) 70, Glucose 103 H, Calcium 9.0, Total Bilirubin 0.3, AST 24, ALT 20, Alkaline Phosphatase 124, Troponin I < 0.01, NT-Pro-B Natriuret Pep 55.3, Total Protein 7.3, Albumin 3.7, Globulin 3.6 H, Albumin/Globulin Ratio 1.0 L 04/03/24 00:20 04/03/24 00:20 Response Orders (Tests/Meds): ED MEDICATIONS Discontinued Medications Generic Name Dose Route Start Last Admin Trade Name Freq PRN Reason Stop Dose Admin Albuterol/Ipratropium 9 ml 04/03/24 00:10 04/03/24 00:26 Ipratropium/Albuterol 3 Ml Neb IH 04/03/24 00:11 9 ml ONCE ONE Administration ORDERS Category Date Time Status CXR --portable [XR chest portable] Stat Exams 04/03/24 00:10 Completed BNP [NT Pro Brain Natriuretic Pep.] Stat Lab 04/03/24 00:20 Completed CBC w/Auto Diff [Complete Blood Count Auto Diff] Stat Lab 04/03/24 00:20 Completed CMP [Comprehensive Metabolic Panel] Stat Lab 04/03/24 00:20 Completed D-Dimer Stat Lab 04/03/24 00:20 Received PT INR [Prothrombin Time INR] Stat Lab 04/03/24 00:20 Completed Trop I [Troponin I] Stat Lab 04/03/24 00:20 Completed Troponin I Q3H Lab 04/03/24 03:15 Ordered Troponin I Q3H Lab 04/03/24 06:15 Ordered VBG [Venous Blood Gas] Stat RT 04/03/24 00:10 Completed MDM Narrative Medical Decision Narrative: In summary, this 53-year-old female presents to the emergency department today with shortness of breath. On initial evaluation patient is hemodynamically stable, afebrile, patient was placed on nasal cannula, significantly diminished breath sounds throughout with wheezing bilaterally and rales bilaterally. Differential diagnosis includes but is not limited to COPD versus asthma exacerbation, fluid overload, considered the possibility of ACS, also considered possibility of PE given patient had recent surgery back in January and has had difficulty with shortness of breath since that time, she does not have any calf swelling or tenderness, but D-dimer will be ordered to evaluate further, also considered possibility of pneumonia or infectious etiology. Based on these concerns, I ordered chest x-ray, cardiac workup, BNP. ECG personally interpreted demonstrates normal sinus rhythm, rate 93, borderline right axis deviation, SD and QTc normal, no STEMI. Patient received DuoNebs for treatment initially. Labs personally reviewed demonstrate baseline kidney dysfunction with creatinine 1.70, normal CBC, PT/INR unremarkable, patient has mild CO2 retention on her VBG but pH is normal at 7.38, initial troponin undetectably low at less than 0.01, repeat troponin pending. Dimer was ordered but machine was down for maintenance, this is pending at this time. XR personally interpreted demonstrates findings consistent with fluid overload. See radiology read for final interpretation On reassessment after DuoNeb's, patient has had some improvement of her aeration and air movement but continues having wheezing and feels short of breath. Off oxygen she still desaturates to 89% on room air and when she ambulates she falls to 81%. She was placed back on oxygen and is receiving a continuous albuterol treatment as well as IV Lasix. She requires admission for continued management of her shortness of breath and hypoxia with exertion at this time. I discussed this case including patient's lab findings and treatment so far with the hospitalist. She was accepted for admission
[2024-04-03 00:24] LABS: VBG Base Excess 5.6 mmol/L (-2.4-2.3); VBG HCO3 30.8 mmol/L (23-30); VBG Oxygen Saturation 76.1 % (50-70); VBG PH 7.38 mmol/L (7.31-7.41); VBG PO2 38.9 mmol/L (28-40); VBG Total CO2 32.5 mmol/L (23-27)
[2024-04-03] MEDS: IPRATROPIUM/ALBUTEROL 3 ML NEB 9 ML IH (00:26)
--- NOTE | 2024-04-03 00:26 | ECG_ITS ---
APPROVED REPORT Exam: Resting ECG HR:93 bpm ECG Measurements Heart Rate 93 AXES PA 164 P 75 QRSd 109 QRS 93 QT 366 T 51 QTc 417 Conclusion SINUS RHYTHM BORDERLINE RIGHT AXIS DEVIATION [QRS AXIS > 90] LOW QRS VOLTAGE IN PRECORDIAL LEADS [QRS DEFLECTION < 1.0 mV IN CHEST LEADS] BORDERLINE ECG Electronically signed by : JOSSUE GIRON, 04/03/2024 04:28:08
[2024-04-03 00:29] LABS: VBG PCO2 53.8 mmol/L (35-51)
[2024-04-03 00:36] LABS: Basophils # 0.1 K/mm3 (0-0.2); Basophils % 0.8 % (0.1-2.0); Eosinophils # 0.2 K/mm3 (0.0-0.4); Eosinophils % 2.6 % (0.1-12.0); Hematocrit 43.7 % (37.0-47.0); Hemoglobin 14.1 g/dL (12.2-16.2); Lymphocytes % 23.9 % (10-50); Mean Corpuscular HGB Conc 32.3 g/dL (31.8-35.4); Mean Corpuscular Volume 89.7 fl (81-99); Monocytes # 0.5 K/mm3 (0.1-1.0); Monocytes % 6.5 % (1.7-9.3); Neutrophils # 5.4 K/mm3 (1.8-7.8); Neutrophils % 66.1 % (37.0-80.0); Platelet Count 215 K/mm3 (142-424); Red Blood Count 4.87 M/mm3 (4.20-5.40); Red Cell Distribution Width 15.7 % (11.5-17.5); White Blood Count 8.2 K/mm3 (4.8-10.8)
[2024-04-03 00:39] LABS: Chloride 102 mmol/L (98-107); Sodium 139 mmol/L (136-145)
[2024-04-03 00:42] LABS: Alanine Aminotransferase 20 U/L (12-78); Albumin Level 3.7 g/dl (3.5-5.0); Alkaline Phosphatase 124 U/L (38-126); Aspartate Amino Transferase 24 U/L (14-36); Bilirubin,Total 0.3 mg/dl (0.2-1.3); Blood Urea Nitrogen 12 mg/dl (7-17); Carbon Dioxide 36 mmol/L (22.0-30.0); Creatinine Clearance Estimated 62 mL/min (50-200); Estimated Glomerular Filt Rate 58 ml/min (>60); GFR (African American) 70 ML/MIN (>60); Globulin 3.6 g/dL (1.3-3.2); Glucose 103 mg/dl (74-100); Total Protein,Serum 7.3 g/dl (6.3-8.2)
[2024-04-03 00:52] LABS: NT Pro Brain Natriuretic Pep. 55.3 pg/mL (0-125)
[2024-04-03 00:55] LABS: INR 0.88 (0.9-1.1)
[2024-04-03 00:56] LABS: Troponin I < 0.01 ng/ml (0.00-0.034)
--- NOTE | 2024-04-03 01:04 | PC.NURSE ---
Patient ambulated around nurses station with pulse ox in place for oxygen study. Patient vitals at baseline before ambulation 90% on 2LNC, during ambulation patient sats 81% on room air and appears to be very SOA and wheezing present with pursed lip breathing. After returning to room patient was placed back on 4LNC to which sats increased to 94%. MD notified.
--- NOTE | 2024-04-03 01:10 | PC.NURSE ---
on phone with hospitalist for patient admit.
[2024-04-03] MEDS: FUROSEMIDE 100MG/10ML VIAL 60 MG IV (01:12)
--- NOTE | 2024-04-03 01:14 | PC.NURSE ---
Olga RN on phone with housekeeper/laundry assistant for bed request on patient admission
[2024-04-03] MEDS: ALBUTEROL 0.083% 2.5 MG/3 ML NEB 20 MG IH (01:22)
--- NOTE | 2024-04-03 01:39 | PC.NURSE ---
Nurse to Nurse report given to Mya
--- NOTE | 2024-04-03 01:39 | PC.NURSE ---
RECEIVED PHONE REPORT FROM ROXIE RN/ED NURSE. 53 YO FEMALE, DIAGNOSIS SOA/FLUID OVERLOAD. MAY TRANSPORT PER W/C.
--- NOTE | 2024-04-03 01:50 | PC.NURSE ---
0150 ARRIVED VIA W/C, ADMITTED TO ROOM 204.
--- NOTE | 2024-04-03 01:50 | PC.NURSE ---
pt arrived to floor at this time
[2024-04-03 01:52] LABS: D-Dimer 0.55 ug/mL (0.0-0.5)
--- NOTE | 2024-04-03 02:44 | P.HP_ITS ---
History of Present Illness *Admission Date: 04/03/24 *Reason for visit:: Shortness of breath *History of present illness: 53-year-old female presents to the ED for progressively worsening dyspnea on exertion last 3 weeks duration. States her symptoms started after a arthroplastic knee repair for meniscal tears. Uncomplicated postop course. Was never on anticoagulation after. Denies any chest pain, palpitations but has had significant leg worsening dyspnea and bilateral lower extremity edema. Denies any unilateral or leg pain. Endorses weight gain and sensations of fluid retention. Has had a left heart cath elevated LVEDP, normal coronaries in December 2021. Also has a history of lupus. [facility] Disclaimer: The information contained in this section may have been updated after the patient was seen, as this information can be updated by other users. Medical History (Updated 04/03/24 @ 03:10 by Bang Cheung MD) Depression Arthritis Congestive heart failure Cholecystectomy planned Chronic cough Asthma Gallbladder disease Allergies Daytime somnolence NIKKI (obstructive sleep apnea) Restless sleeper Snoring Weight gain Morbid obesity HTN (hypertension) Dizziness Syncope Surgical History H/O arthroscopic knee surgery Hx of cardiac cath Hx of tubal ligation History of endometrial ablation Family History Mother Blood disorder Mother Diabetes Social History Smoking Status: Current every day smoker tobacco type: cigarettes packs per day: 1 years smoked: 30 second hand exposure: Yes alcohol intake: never substance use type: denies use current occupational status: employed Travel in the last 8 weeks: None household members: spouse housing: house 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 Review of Systems Review of Systems Review of systems:: pertinent systems reviewed and negative unless documented below Constitutional Constitutional: Denies headache(s) and Denies weakness ENT Ears, Nose, Mouth, and Throat: Denies dizziness and Denies headache(s) *Musculoskeletal Musculoskeletal: Denies numbness and Denies tingling *Neurologic Neurologic: Denies dizziness, Denies headache(s), Denies numbness, Denies tingling and Denies weakness Meds Home Medications and Allergies Home Medications Medication Instructions Recorded Confirmed Type hydroxychloroquine 200 mg tablet 200 mg PO BID LUPUS 12/02/21 04/03/24 History albuterol sulfate 90 mcg/actuation 2 puffs inhalation Q4HP PRN 01/16/22 04/03/24 History aerosol inhaler shortness of air furosemide 40 mg tablet (Lasix) 40 mg PO BID Fluid 06/12/22 04/03/24 History sertraline 50 mg tablet (Zoloft) 50 mg PO DAILY Depression 06/12/22 04/03/24 History diclofenac sodium 1 % topical gel 4 g topical QID PRN pain #100 grams 01/25/23 04/03/24 Rx (Voltaren Arthritis Pain) ipratropium 0.5 mg-albuterol 3 mg 3 ml inhalation QID PRN Asthma 12/20/23 04/03/24 History (2.5 mg base)/3 mL nebulization soln ropinirole 0.25 mg tablet 0.25 mg PO DAILY 12/20/23 04/03/24 History spironolactone 25 mg tablet 25 mg PO BID 12/20/23 04/03/24 History celecoxib 50 mg capsule (Celebrex) 50 mg PO BID 01/23/24 04/03/24 History New Prescriptions to Start Prescriptions: Allergies Allergy/AdvReac Type Severity Reaction Status Date / Time amoxicillin Allergy Unknown Verified 03/13/24 13:48 Exam Data for Last 24 hours Vital signs and Labs for Last 24 Hours: Temp Pulse Resp BP Pulse Ox O2 Del Method O2 Flow Rate 98.4 F 94 H 20 127/73 93 L Nasal Cannula 4 04/03/24 02:02 04/03/24 02:02 04/03/24 01:53 04/03/24 02:02 04/03/24 02:28 04/03/24 02:28 04/03/24 02:28 Laboratory Results - last 24 hr 04/03/24 00:10: VBG pH 7.38, VBG pCO2 53.8 H, VBG pO2 38.9, VBG HCO3 30.8 H, VBG Total CO2 32.5 H, VBG O2 Saturation 76.1 H, VBG Base Excess 5.6 H, VBG Lactic Acid 1.0 04/03/24 00:20: WBC 8.2, RBC 4.87, Hgb 14.1, Hct 43.7, MCV 89.7, MCH 29.0, MCHC 32.3, RDW 15.7, Plt Count 215, MPV 9.0, Neut % (Auto) 66.1, Lymph % (Auto) 23.9, [place] % (Auto) 6.5, Eos % (Auto) 2.6, Baso % (Auto) 0.8, Neut # (Auto) 5.4, Lymph # (Auto) 2.0, [place] # (Auto) 0.5, Eos # (Auto) 0.2, Baso # (Auto) 0.1, PT 10.0 L, INR 0.88 L, D-Dimer 0.55 H, Sodium 139, Potassium 4.0, Chloride 102, Carbon Dioxide 36 H, Anion Gap 5.0, BUN 12, Creatinine 1.00, Estimated Creat Clear 62, Estimated GFR 58 L, Est GFR ( Amer) 70, Glucose 103 H, Calcium 9.0, Total Bilirubin 0.3, AST 24, ALT 20, Alkaline Phosphatase 124, Troponin I < 0.01, NT-Pro-B Natriuret Pep 55.3, Total Protein 7.3, Albumin 3.7, Globulin 3.6 H, Albumin/Globulin Ratio 1.0 L I & O for Last 24 hours: Intake & Output 03/31/24 04/01/24 04/02/24 04/03/24 23:59 23:59 23:59 23:59 Weight 176.901 kg Constitutional Constitutional: no acute distress and obese *Routine HEENT Exam Head: Present normocephalic Eye: Present EOMI and PERRL ENT: Present mucous membranes moist *Routine Neck Exam Neck: Present supple and JVD; Absent lymphadenopathy *Routine Respiratory Exam Respiratory: Present CTA bilaterally *Routine Cardiovascular Exam Cardiovascular: Present RRR *Routine Abdominal Exam Abdominal: Present soft and normoactive bowel sounds; Absent tenderness *Routine Rectal Exam Rectal:: deferred *Routine Genitalia Exam Genitalia:: deferred *Routine Extremities Exam Extremities: Absent cyanosis, clubbing or edema *Routine Skin Exam Skin: Present warm; Absent rash *Routine Neurological Exam Neurological: Present alert and oriented X3 Assessment and Plan *Assessment and plan (1) Fluid overload: Status: Acute Category: Medical Code(s): E87.70 - Fluid overload, unspecified (2) Shortness of breath: Status: Acute Category: Medical Code(s): R06.02 - Shortness of breath (3) S/P left knee arthroscopy: Status: Acute Category: Surgical Code(s): Z98.890 - Other specified postprocedural states (4) BMI 50.0-59.9, adult: Status: Acute Category: Medical Code(s): Z68.43 - Body mass index [BMI] 50.0-59.9, adult (5) Tobacco dependence: Status: Acute Category: Medical Code(s): F17.200 - Nicotine dependence, unspecified, uncomplicated (6) Diastolic dysfunction: Status: Acute Category: Medical Code(s): I51.89 - Other ill-defined heart diseases Plan 53-year-old noted with progressively worsening dyspnea on exertion. She is recently postop from knee surgery. Elevated D-dimer. Hypoxic respiratory failure. My first concern is that she has an acute pulmonary embolism, will order CT PE at this time. Additionally multiple risk factors for diastolic dysfunction and previously had cath with elevated LVEDP, diuretics in the ER given, will continue to monitor. Less likely concern for COPD at this time as she does not have active consolidations or wheezes on exam. Will continue to explore other etiologies Dyspnea on exertion - Concern for PE, will order CT PE - No wheeze, will hold steroids at this time, less concern for COPD exacerbation - DuoNebs every 6 hours as needed Diastolic dysfunction -Continue diuretics, 40 Lasix IV twice daily -Echo ordered -Farxiga 10 started -Cardiology consult -Follow-up cardiology outpatient -Advised and counseled on weight loss, treatment of NIKKI, hypertension other contributing comorbidities -Outpatient Ozempic -Outpatient sleep study Diabetes -Prior A1c elevated, will repeat -SSI -Farxiga -Started PARAG inhibitor for diabetic renal protection Hypertension - Start lisinopril 10 in a.m. - Continue spironolactone Hyperlipidemia -Start statin given diabetes Lupus -Continue hydroxychloroquine Restless leg Continue ropinirole Anxiety depression Continue Zoloft
--- NOTE | 2024-04-03 02:44 | CT_ITS ---
PROCEDURE INFORMATION: Exam: CTA Chest With Contrast Exam date and time: 04/03/2024 3:31 AM Age: 53 years old Clinical indication: Shortness of breath; Additional info: Pe TECHNIQUE: Imaging protocol: Computed tomographic angiography of the chest with contrast. Exam focused on the arteries. 3D rendering (Not supervised by radiologist): MIP and/or 3D reconstructed images were created by the technologist. Radiation optimization: All CT scans at this facility use at least one of these dose optimization techniques: automated exposure control; mA and/or kV adjustment per patient size (includes targeted exams where dose is matched to clinical indication); or iterative reconstruction. Contrast material: ISOVUE; Contrast volume: 70 ml; Contrast route: INTRAVENOUS (IV); COMPARISON: CT ANGIO CHEST PE PROTOCOL 01/16/2022 6:37 AM FINDINGS: Pulmonary arteries: Normal. No pulmonary emboli. Aorta: Unremarkable. No aortic aneurysm. No aortic dissection. Lungs: Unremarkable. No consolidation. No masses. Pleural spaces: Unremarkable. No pneumothorax. No pleural effusion. Heart: The heart is top-normal in size. Lymph nodes: Calcified right hilar lymph nodes are noted. Gallbladder and biliary ducts: The gallbladder is absent. There is no biliary ductal dilation. Adrenal glands: Left adrenal hyperplasia. Kidneys and ureters: 8.5 cm left renal cyst. Bones/joints: [id number] degenerative changes of the thoracic spine. No acute fracture. Soft tissues: Unremarkable. Other findings: Respiratory motion artifact is noted. IMPRESSION: 1. No pulmonary embolus. 2. Other nonemergent findings as noted. COMMENTS: Consistent with the [employer]'s Incidental Findings Committee white paper (J Am Yannick Radiol 2018): Any incidental renal lesion less than 1 cm or classified as too small to characterize, or any incidental cystic renal lesion characterized as simple-appearing, is likely benign. No follow-up imaging is recommended for these lesions per consensus recommendations based on imaging criteria.
--- NOTE | 2024-04-03 02:46 | CA_ITS ---
APPROVED REPORT EXAM: Comprehensive 2D, Doppler, and color-flow Echocardiogram Nursing Assoc: WALLACE Stanley, RVS Ht: 5 ft 6 in Wt: 390lbs BSA: 2.66 BP: 158/79 mmHg Indications: SOB, CHF, NIKKI, COPD, Smoker Echo Enhancing Agent Comments: Extremely difficult exam due to extreme patient factors, Best exam possible. 2D Dimensions IVSd 1.61 cm LVEF (Visual) 67.80 % PWd 1.54 cm LA Volume 51.10 mL LVDd 5.58 cm LA Volume Index 18.80 mL/m2 (M/F) 16-34 LVDs 3.45 cm Left Atrium 3.36 cm M-Mode Dimensions RVDd 2.26 cm (0.9-2.6) LA Diam 4.08 cm (1.9-4.0) LVDd 6.74 cm (3.5-5.7) LVDs 3.85 cm (3.5-5.7) IVSd 1.48 cm (0.6-1.1) PWd 1.33 cm (0.6-1.1) EF (Teich) 65.90% FS 37.00% EDV (Teich) 187.60 mL TAPSE 1.84 (<1.7) ESV (Teich) 63.90 mL LV Diastology E Decel Time 250 (160-240 msec) E/A Ratio 1.52 MED A' 8.90 cm/s LAT A' 8.50 cm/s Aortic Valve SAVANA Index 0.79 cm2/m2 AoV Peak Harshad. 189.0 (50-130 cm/s) AO Peak GR. 14.30 mmHg AO Mean GR. 7.20 (<5 mmHg) AO VTI 33.5 (18-25 cm) SAVANA (VTI) 2.14 (2.5-4.5 cm2) Mitral Valve MV A Velocity 56.0 (40-130 cm/s) E/A Ratio 1.52 MV Mean Gr. 2.60 (<2mmHg) Pulmonary Valve PV Peak Velocity 133.0 (50-150 cm/s) Tricuspid Valve TR P. Velocity 191.00 cm/s RAP Estimate 10.00 mmHg RVSP 24.50 mmHg Left Ventricle The left ventricle is normal size. The left ventricular systolic function is normal. The left ventricular ejection fraction is within the normal range. There is increased LV wall thickness. Regional wall motion cannot be determined due to technically difficult study. Diastolic function is indeterminate. LVEF is 55%. Right Ventricle The right ventricle is not well-visualized. Atria The left atrium size is normal. The right atrium is not well-visualized. Aortic Valve The aortic valve leaflets are not well-visualized. There is no aortic valvular stenosis. No aortic regurgitation is present. Mitral Valve The mitral valve is normal in structure. No evidence of mitral valve stenosis. There is no mitral valve regurgitation noted. Tricuspid Valve The tricuspid valve leaflets are not well-visualized. Trace tricuspid regurgitation. There is insufficient TR jet to estimate RVSP. Pulmonic Valve The pulmonic valve leaflets are not well-visualized. Great Vessels The aortic root is not well-visualized. The IVC is not well-visualized. Pericardium There is no pericardial effusion. Other Information Study Quality: Technically Difficult. Technically limited study due to body habitus. Conclusion Technically difficult and limited study due to poor acoustic windows. Grossly, normal LV systolic function. The RV is not well-visualized. There is no obvious significant stenosis or regurgitation in the visualized valves. Electronically signed by : Shannon Wayne MD 04/04/2024 20:37:41
[2024-04-03] MEDS: SODIUM CHLORIDE 0.9% 10ML SYR (RAD ONLY) 10 ML IV (03:43)
[2024-04-03] MEDS: IOPAMIDOL-370 (76%);100ML BOTTLE 70 ML IV (03:43)
[2024-04-03] MEDS: 0.9 % SODIUM CHLORIDE 50 ML VIAL IV (03:44)
[2024-04-03 03:49] LABS: Lactic Acid 0.9 mmol/L (0.7-2.1)
[2024-04-03 04:03] LABS: Troponin I < 0.01 ng/ml (0.00-0.034)
--- NOTE | 2024-04-03 04:29 | PC.NURSE ---
RESTING IN BED. HOB ELEVATED 35 DEGREES FOR COMFORT. VITAL SIGNS STABLE. 02 AT 4LNC, 02 SATS 93-94%. NO COMPLAINTS OF PAIN. HAS CHRONIC EDEMA BLEs, SKIN HARD AND DISCOLORED. lUNGS DIMINISHED BUT AUDIBLE WHEEZES NOTED WHEN PATIENT UP WALKING. SOA WITH EXERTION. CT PE PROTOCOL OBTAINED AND NEGATIVE.
[2024-04-03 05:25] LABS: POC Glucose,Bedside 106 (70-110)
[2024-04-03 06:23] LABS: Basophils # 0.1 K/mm3 (0-0.2); Basophils % 0.8 % (0.1-2.0); Eosinophils # 0.2 K/mm3 (0.0-0.4); Eosinophils % 2.2 % (0.1-12.0); Hematocrit 45.6 % (37.0-47.0); Hemoglobin 14.5 g/dL (12.2-16.2); Lymphocytes # 1.7 K/mm3 (0.7-4.5); Mean Corpuscular HGB Conc 31.7 g/dL (31.8-35.4); Mean Corpuscular Hemoglobin 28.8 pg (27.0-31.2); Mean Corpuscular Volume 90.8 fl (81-99); Monocytes # 0.5 K/mm3 (0.1-1.0); Monocytes % 5.8 % (1.7-9.3); Neutrophils # 5.7 K/mm3 (1.8-7.8); Neutrophils % 70.1 % (37.0-80.0); Platelet Count 187 K/mm3 (142-424); Red Blood Count 5.02 M/mm3 (4.20-5.40); Red Cell Distribution Width 15.6 % (11.5-17.5); White Blood Count 8.2 K/mm3 (4.8-10.8)
[2024-04-03 06:48] LABS: Hemoglobin A1C 5.7 % (4.0-6.0)
[2024-04-03 06:50] LABS: Troponin I < 0.01 ng/ml (0.00-0.034)
[2024-04-03 06:57] LABS: Alanine Aminotransferase 17 U/L (12-78); Albumin Level 3.8 g/dl (3.5-5.0); Albumin/Globulin Ratio 1.1 (1.1-1.8); Alkaline Phosphatase 120 U/L (38-126); Anion Gap 7.3 mEq/L (5-15); Aspartate Amino Transferase 22 U/L (14-36); Bilirubin,Total 0.4 mg/dl (0.2-1.3); Blood Urea Nitrogen 14 mg/dl (7-17); Calcium 9.3 mg/dl (8.4-10.2); Carbon Dioxide 37 mmol/L (22.0-30.0); Chloride 99 mmol/L (98-107); Chol/HDL Ratio 3.3 (1-3.5); Cholesterol 169 mg/dl (140-200); Creatinine Clearance Estimated 77 mL/min (50-200); Estimated Glomerular Filt Rate 75 ml/min (>60); GFR (African American) 91 ML/MIN (>60); Globulin 3.4 g/dL (1.3-3.2); Glucose 113 mg/dl (74-100); HDL Cholesterol 52 mg/dl (40-60); Phosphorous 7.3 mg/dl (2.5-4.5); Potassium 4.3 mmoL/L (3.5-5.1); Sodium 139 mmol/L (136-145); Total Protein,Serum 7.2 g/dl (6.3-8.2); Triglycerides 68 mg/dl (30-150); VLDL Cholesterol 14 mg/dL (0-40)
[2024-04-03 07:08] LABS: Direct LDL Cholesterol 99.33 mg/dL (100-129)
[2024-04-03] MEDS: DAPAGLIFLOZIN PROPANEDIOL 10 MG TABLET PO (08:55)
[2024-04-03] MEDS: ROPINIROLE HCL 0.25 MG TABLET PO ×2 (08:55→20:08)
[2024-04-03] MEDS: PANTOPRAZOLE 40MG TABLET 40 MG PO (08:55)
[2024-04-03] MEDS: SERTRALINE 50MG TABLET 50 MG PO (08:55)
[2024-04-03] MEDS: LISINOPRIL 10MG TABLET 10 MG PO (08:56)
[2024-04-03] MEDS: FUROSEMIDE 40MG/4ML VIAL 40 MG IV ×2 (08:56→16:41)
[2024-04-03] MEDS: HYDROXYCHLOROQUINE SULFATE 200MG TABLET 200 MG PO (08:56)
[2024-04-03] MEDS: ENOXAPARIN 60MG/0.6ML SYRINGE 60 MG SQ ×2 (08:56→20:08)
--- NOTE | 2024-04-03 09:26 | HMH.PHAINT1 ---
Pharmacy Intervention Comments: MEDICATION RECONCILIATION COMPLETED ON PATIENT USING EXTERNAL FILL HISTORY FROM PHARMACY. -DOMINIC NEAL, ARMANDOD
[2024-04-03 10:16] LABS: NT Pro Brain Natriuretic Pep. 43.7 pg/mL (0-125)
[2024-04-03] MEDS: IPRATROPIUM/ALBUTEROL 3 ML NEB IH ×2 (11:04→18:38)
--- NOTE | 2024-04-03 11:10 | EXP.EVENT.NO ---
Patient reevaluated after admission by Dr. Palomares. Patient being evaluated for shortness of breath possibly due to diastolic heart failure. Patient extremely wheezy. Nebulization treatment started. Patient has echocardiogram scheduled for today. CTA chest reviewed by Dr. Palomares with no pulmonary embolus but questionable pulmonary edema. Patient on IV Lasix.
[2024-04-03 11:23] LABS: POC Glucose,Bedside 91 (70-110)
[2024-04-03] MEDS: ACETAMINOPHEN 325MG TAB 650 MG PO (11:31)
--- NOTE | 2024-04-03 13:46 | EXP.CARD.CON ---
History of Present Illness History of Present Illness Consult date: 04/03/24 Requesting physician: Arash Palomares Consult reason: congestive heart failure Chief complaint: SOA History of present illness: 53-year-old white female with history of severely elevated EDP per heart cath evaluated in our clinic approximately 2 years ago. She has a BMI of 64, untreated sleep apnea, asthma, COPD, ongoing tobacco use. Patient states she has been off of work for 3 months due to a knee injury and has been very sedentary. Last week she returned to work and has developed gradual onset of worsening dyspnea on exertion associated with wheezing and bilateral lower extremity edema. She presented to the emergency room last night with elevated D-dimer. CTA was negative for PE and edema. Chest x-ray showed no acute findings. Troponin normal, creatinine 1. EKG shows sinus rhythm with no ischemia or ectopy. She was admitted for hypoxia and started on neb treatments. This morning she states she is breathing much better but is still requiring 3 L [address] nasal cann[address] [facility] Disclaimer: The information contained in this section may have been updated after the patient was seen, as this information can be updated by other users. Medical History (Updated 04/03/24 @ 14:05 by GASTON See) Depression Arthritis Congestive heart failure Cholecystectomy planned Chronic cough Asthma Gallbladder disease Allergies Daytime somnolence NIKKI (obstructive sleep apnea) Restless sleeper Snoring Weight gain Morbid obesity HTN (hypertension) Dizziness Syncope Surgical History H/O arthroscopic knee surgery Hx of cardiac cath Hx of tubal ligation History of endometrial ablation Family History Mother Blood disorder Mother Diabetes Social History Smoking Status: Current every day smoker tobacco type: cigarettes packs per day: 1 years smoked: 30 second hand exposure: Yes alcohol intake: never substance use type: denies use current occupational status: employed Travel in the last 8 weeks: None household members: spouse housing: house 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 Review of Systems Constitutional Constitutional: Denies headache(s) and Denies weakness Eyes Eyes: Denies loss of vision ENT Ears, Nose, Mouth, and Throat: Denies dizziness and Denies headache(s) *Cardiovascular Cardiovascular: Denies chest pain and Reports dyspnea *Respiratory Respiratory: Denies cough, Reports dyspnea and Reports wheezing *Gastrointestinal Gastrointestinal: Denies change in stool character, Denies nausea and Denies vomiting *Musculoskeletal Musculoskeletal: Denies numbness and Denies tingling Integumentary/Breasts Skin/Breast: Denies changing lesions *Neurologic Neurologic: Denies dizziness, Denies headache(s), Denies loss of vision, Denies numbness, Denies tingling and Denies weakness Allergic/Immunologic Allergic/Immunologic: Reports wheezing Exam Data for Last 24 hours Vital signs and Labs for Last 24 Hours: Temp Pulse Resp BP Pulse Ox O2 Del Method O2 Flow Rate 98 F 85 22 141/68 H 87 L Room Air 3 04/03/24 11:40 04/03/24 11:40 04/03/24 11:40 04/03/24 11:40 04/03/24 12:09 04/03/24 12:09 04/03/24 11:40 Laboratory Results - last 24 hr 04/03/24 00:10: VBG pH 7.38, VBG pCO2 53.8 H, VBG pO2 38.9, VBG HCO3 30.8 H, VBG Total CO2 32.5 H, VBG O2 Saturation 76.1 H, VBG Base Excess 5.6 H, VBG Lactic Acid 1.0 04/03/24 00:20: WBC 8.2, RBC 4.87, Hgb 14.1, Hct 43.7, MCV 89.7, MCH 29.0, MCHC 32.3, RDW 15.7, Plt Count 215, MPV 9.0, Neut % (Auto) 66.1, Lymph % (Auto) 23.9, [place] % (Auto) 6.5, Eos % (Auto) 2.6, Baso % (Auto) 0.8, Neut # (Auto) 5.4, Lymph # (Auto) 2.0, [place] # (Auto) 0.5, Eos # (Auto) 0.2, Baso # (Auto) 0.1, PT 10.0 L, INR 0.88 L, D-Dimer 0.55 H, Sodium 139, Potassium 4.0, Chloride 102, Carbon Dioxide 36 H, Anion Gap 5.0, BUN 12, Creatinine 1.00, Estimated Creat Clear 62, Estimated GFR 58 L, Est GFR ( Amer) 70, Glucose 103 H, Calcium 9.0, Total Bilirubin 0.3, AST 24, ALT 20, Alkaline Phosphatase 124, Troponin I < 0.01, NT-Pro-B Natriuret Pep 55.3, Total Protein 7.3, Albumin 3.7, Globulin 3.6 H, Albumin/Globulin Ratio 1.0 L 04/03/24 03:15: Lactate 0.9, Troponin I < 0.01 04/03/24 05:14: POC Glucose 106 04/03/24 06:08: WBC 8.2, RBC 5.02, Hgb 14.5, Hct 45.6, MCV 90.8, MCH 28.8, MCHC 31.7 L, RDW 15.6, Plt Count 187, MPV 9.0, Neut % (Auto) 70.1, Lymph % (Auto) 21.0, [place] % (Auto) 5.8, Eos % (Auto) 2.2, Baso % (Auto) 0.8, Neut # (Auto) 5.7, Lymph # (Auto) 1.7, [place] # (Auto) 0.5, Eos # (Auto) 0.2, Baso # (Auto) 0.1, Sodium 139, Potassium 4.3, Chloride 99, Carbon Dioxide 37 H, Anion Gap 7.3, BUN 14, Creatinine 0.80, Estimated Creat Clear 77, Estimated GFR 75, Est GFR ( Amer) 91 D, Glucose 113 H, Hemoglobin A1c 5.7, Calcium 9.3, Phosphorus 7.3 H, Magnesium 2.0, Total Bilirubin 0.4, AST 22, ALT 17, Alkaline Phosphatase 120, Troponin I < 0.01, NT-Pro-B Natriuret Pep 43.7, Total Protein 7.2, Albumin 3.8, Globulin 3.4 H, Albumin/Globulin Ratio 1.1, Triglycerides 68, Cholesterol 169, LDL Cholesterol Direct 99.33 L, VLDL Cholesterol 14, HDL Cholesterol 52, Cholesterol/HDL Ratio 3.3 04/03/24 11:15: POC Glucose 91 I & O for Last 24 hours: Intake & Output 03/31/24 04/01/24 04/02/24 04/03/24 23:59 23:59 23:59 23:59 Output Total 0 / 0 Balance 0 / 0 Weight 390 lb Constitutional Constitutional: no acute distress, obese and cooperative *Routine HEENT Exam Eye: Present PERRL *Routine Respiratory Exam Respiratory: Present CTA bilaterally; Absent accessory muscle use, wheezes or crackles *Routine Cardiovascular Exam Cardiovascular: Present RRR, Normal S1 and Normal S2; Absent murmur, gallop or rubs *Routine Abdominal Exam Abdominal: Present soft; Absent tenderness *Routine Extremities Exam Extremities: Present pulses intact; Absent cyanosis or edema *Routine Skin Exam Skin: Present intact; Absent erythema or wounds *Routine Neurological Exam Neurological: Present alert and oriented X3 Routine Psychiatric Exam Psychiatric: Present cooperative Meds Home Medications and Allergies Home Medications Medication Instructions Recorded Confirmed Type albuterol sulfate 90 mcg/actuation 2 puffs inhalation Q4HP PRN 01/16/22 04/03/24 History aerosol inhaler shortness of air furosemide 40 mg tablet (Lasix) 40 mg PO BID 06/12/22 04/03/24 History ipratropium 0.5 mg-albuterol 3 mg 3 ml inhalation QIDP PRN Shortness 12/20/23 04/03/24 History (2.5 mg base)/3 mL nebulization Of Breath soln ropinirole 0.25 mg tablet 0.25 mg PO HS 12/20/23 04/03/24 History spironolactone 25 mg tablet 25 mg PO BID 12/20/23 04/03/24 History celecoxib 200 mg capsule 200 mg PO BID 04/03/24 04/03/24 History sertraline 100 mg tablet 100 mg PO DAILY 04/03/24 04/03/24 History New Prescriptions to Start Prescriptions: Allergies Allergy/AdvReac Type Severity Reaction Status Date / Time amoxicillin Allergy Unknown Verified 03/13/24 13:48 Assessment and Plan *Assessment and plan (1) Acute on chronic hypoxic respiratory failure: Status: Acute Category: Medical Code(s): J96.21 - Acute and chronic respiratory failure with hypoxia (2) (HFpEF) heart failure with preserved ejection fraction: Status: Acute Category: Medical Code(s): I50.30 - Unspecified diastolic (congestive) heart failure (3) Asthma exacerbation: Status: Acute Qualifiers: Asthma persistence: persistent Asthma severity: moderate Qualified Code(s): J45.41 - Moderate persistent asthma with (acute) exacerbation Category: Medical Code(s): J45.901 - Unspecified asthma with (acute) exacerbation (4) COPD (chronic obstructive pulmonary disease): Status: Acute Category: Medical Code(s): J44.9 - Chronic obstructive pulmonary disease, unspecified Plan Acute on Chronic Hypoxic Resp Failure - likely combination of her Obesity, NIKKI, Asthma, COPD, ongoing tob use and deconditioning following knee surgery - she has no edema noted on CT chest and is feeling much better with O2 and neb treatments - I recommend Pulm consult HFpEF - severely elevated EDP on [facility] 2021 likely due to obesity and untreated sleep apnea - her ECHO here shows mild RV dilation but otherwise unremarkable - will add SGLT-2 - recommend aggressive weight loss and treatment of NIKKI Morbid Obesity, BMI 62 - this is life limiting obesity - will address further as outpatient, she would benefit greatly from GLP-1 and bariatric referral CV stable, no evidence of CHF at this time. Defer further inpatient management to hospitalist and [employer]. She needs f/u in our office 2 weeks. Thank you.
--- NOTE | 2024-04-03 14:47 | PC.NURSE ---
Patient weaned to 3L NC this shift. Patient currently has a room air o2 saturation of 87%. Patient continuing to have adequate uop while diuresing.
[2024-04-03 16:54] LABS: POC Glucose,Bedside 102 (70-110)
[2024-04-03 20:11] LABS: POC Glucose,Bedside 117 (70-110)
--- NOTE | 2024-04-03 20:13 | PC.NURSE ---
VOICE MAIL LEFT FOR MD/PLANT CARE WORKER [phone] RE PATIENT REQUEST FOR CELEBREX.
[2024-04-04] VITALS: BP 97/60; PULSE 74; RESP 16; TEMP 37; O2SAT 94
[2024-04-04] MEDS: ACETAMINOPHEN 325MG TAB 650 MG PO ×2 (00:07→07:22)
[2024-04-04] MEDS: IPRATROPIUM/ALBUTEROL 3 ML NEB IH ×2 (00:34→06:20)
[2024-04-04 04:00] VITALS: BP 119/75; PULSE 75; RESP 15; TEMP 36.8; O2SAT 92; BMI 62.6
[2024-04-04 06:20] VITALS: PULSE 92; PULSE 93; O2SAT 84
--- NOTE | 2024-04-04 06:40 | PC.NURSE ---
Has had a quiet night. Reports SOA with exeryion. Lungs sounds diminished. No wheezes heard til up ambulating. 02 sat 80% on room air. 93-94% on 3lnc.
[2024-04-04 07:37] LABS: Adenovirus,PCR Not Detected (NotDetected); Bordetella Pertussis Not Detected (NotDetected); Chlamydophila Pneumoniae, PCR Not Detected (NotDetected); Coronavirus 19, PCR Not Detected (NotDetected); Coronavirus 229E Not Detected (NotDetected); Coronavirus NL63 Not Detected (NotDetected); Coronavirus OC43 Not Detected (NotDetected); Coronovirus HKU1,PCR Not Detected (NotDetected); Human Metapneumovirus Not Detected (NotDetected); Influenza A, PCR Not Detected (NotDetected); Influenza AH1, 2009 Not Detected (NotDetected); Influenza AH1, PCR Not Detected (NotDetected); Influenza AH3,PCR Not Detected (NotDetected); Influenza B, PCR Not Detected (NotDetected); Mycoplasma Pneumoniae, PCR Not Detected (NotDetected); Parainfluenza 1, PCR Not Detected (NotDetected); Parainfluenza 2, PCR Not Detected (NotDetected); Parainfluenza 3, PCR Not Detected (NotDetected); Parainfluenza 4, PCR Not Detected (NotDetected); Respiratory Syncytial Virus Not Detected (NotDetected); Rhinovirus/Enterovirus Not Detected (NotDetected)
[2024-04-04 08:00] VITALS: BP 118/62; PULSE 96; RESP 16; TEMP 36.8; O2SAT 97
[2024-04-04 08:05] LABS: Anion Gap 2.2 mEq/L (5-15); Blood Urea Nitrogen 16 mg/dl (7-17); Calcium 8.8 mg/dl (8.4-10.2); Carbon Dioxide 40 mmol/L (22.0-30.0); Chloride 95 mmol/L (98-107); Creatinine Clearance Estimated 68 mL/min (50-200); Estimated Glomerular Filt Rate 66 ml/min (>60); GFR (African American) 80 ML/MIN (>60); Glucose 103 mg/dl (74-100); Magnesium 2.1 mg/dl (1.6-2.3); Potassium 4.2 mmoL/L (3.5-5.1); Sodium 133 mmol/L (136-145)
[2024-04-04] MEDS: DAPAGLIFLOZIN PROPANEDIOL 10 MG TABLET PO (09:19)
[2024-04-04] MEDS: DOCUSATE SODIUM 100 MG CAPSULE PO (09:19)
[2024-04-04] MEDS: PANTOPRAZOLE 40MG TABLET 40 MG PO (09:19)
[2024-04-04] MEDS: LISINOPRIL 10MG TABLET 10 MG PO (09:19)
[2024-04-04] MEDS: SERTRALINE 100MG TABLET 100 MG PO (09:19)
[2024-04-04] MEDS: ENOXAPARIN 60MG/0.6ML SYRINGE 60 MG SQ (09:20)
[2024-04-04] MEDS: FUROSEMIDE 40MG/4ML VIAL 40 MG IV (09:20)
[2024-04-04] MEDS: METHYLPREDNISOLONE SOD SUCC 40MG VIAL 40 MG IV (09:21)
--- NOTE | 2024-04-04 09:43 | EXP.PULM.CON ---
History of Present Illness History of present illness: Ms. Reich is a 53-year-old female current smoker greater than [id number] smoking history, carries a diagnosis COPD, using albuterol on a daily basis at baseline presented with worsening respiratory distress and lower extremity swelling. Patient since admission has been managed still with dysfunctional antibiotics. Patient had a knee surgery early January 2024, admits progressive worsening respiratory status with exertional desaturations to 80% at home prior to this hospital admission patient denies any worsening cough or any productive phlegm. Denies any sick contacts. [facility] Disclaimer: The information contained in this section may have been updated after the patient was seen, as this information can be updated by other users. Medical History (Updated 04/04/24 @ 11:15 by To Fan MD) Acute respiratory failure with hypoxia COPD exacerbation Depression Arthritis Congestive heart failure Cholecystectomy planned Chronic cough Asthma Gallbladder disease Allergies Daytime somnolence NIKKI (obstructive sleep apnea) Restless sleeper Snoring Weight gain Morbid obesity HTN (hypertension) Dizziness Syncope Surgical History H/O arthroscopic knee surgery Hx of cardiac cath Hx of tubal ligation History of endometrial ablation Family History Mother Blood disorder Mother Diabetes Social History Smoking Status: Current every day smoker tobacco type: cigarettes packs per day: 1 years smoked: 30 second hand exposure: Yes alcohol intake: never substance use type: denies use current occupational status: employed Travel in the last 8 weeks: None household members: spouse housing: house 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 Review of Systems Constitutional Constitutional: Reports fatigue, Denies headache(s) and Denies weakness Eyes Eyes: Denies loss of vision ENT Ears, Nose, Mouth, and Throat: Denies dizziness and Denies headache(s) *Cardiovascular Cardiovascular: Denies chest pain, Reports dyspnea, Reports dyspnea on exertion and Reports leg edema *Respiratory Respiratory: Denies cough, Reports dyspnea, Reports dyspnea on exertion, Denies excessive phlegm production, Denies hemoptysis, Denies pain on inspiration, Denies pain with cough and Reports wheezing *Gastrointestinal Gastrointestinal: Denies change in stool character, Denies nausea and Denies vomiting *Musculoskeletal Musculoskeletal: Denies numbness and Denies tingling Integumentary/Breasts Skin/Breast: Denies changing lesions *Neurologic Neurologic: Denies dizziness, Denies headache(s), Denies loss of vision, Denies numbness, Denies tingling and Denies weakness Psychiatric Psychiatric: Denies homicidal ideation and Denies suicidal ideation Endocrine Endocrine: Reports fatigue and Denies heat intolerance Hematologic/Lymphatic Hematologic/Lymphatic: Denies easy bleeding and Denies lymphadenopathy Allergic/Immunologic Allergic/Immunologic: Reports wheezing Pulmonology Exam Inpatient Vital signs and Labs for Last 24 Hours: Temp Pulse Resp BP Pulse Ox O2 Del Method O2 Flow Rate 98.3 F 96 H 16 118/62 97 Nasal Cannula 3 04/04/24 08:00 04/04/24 08:00 04/04/24 08:00 04/04/24 08:00 04/04/24 08:00 04/04/24 06:42 04/04/24 06:42 Laboratory Results - last 24 hr 04/03/24 06:08: NT-Pro-B Natriuret Pep 43.7 04/03/24 11:15: POC Glucose 91 04/03/24 16:39: POC Glucose 102 04/03/24 20:03: POC Glucose 117 H 04/04/24 07:30: Sodium 133 L, Potassium 4.2, Chloride 95 L, Carbon Dioxide 40 H, Anion Gap 2.2 L, BUN 16, Creatinine 0.90, Estimated Creat Clear 68, Estimated GFR 66, Est GFR ( Amer) 80, Glucose 103 H, Calcium 8.8, Magnesium 2.1 I & O for Labs for Last 24 Hours: Intake & Output 04/01/24 04/02/24 04/03/24 04/04/24 23:59 23:59 23:59 23:59 Intake Total 1380 / 1380 Output Total 0 / 0 0 / 0 Balance 1380 / 1380 0 / 0 Weight 390 lb 389 lb 6.4 oz Constitutional: Present moderate distress Head: Present normocephalic and atraumatic ENT: Present normal exam, normal oropharynx and mucous membranes moist Neck: Present normal inspection and full ROM Respiratory: Present prolonged expiratory phase, respiratory distress, wheezes, diminished air movement and able to speak in complete sentences Cardiac: Present S1/S2, Tachycardia and radial pulses present GI: Present soft and distention; Absent tenderness or guarding Rectal (female): Present deferred (female): Present deferred Skin: Present intact; Absent cyanosis or jaundice Neuro: Present alert, awake and oriented x 3 Extremities: Present normal inspection and edema; Absent clubbing or cyanosis Psychiatric: Present normal affect and cooperative Meds Home Medications and Allergies Home Medications Medication Instructions Recorded Confirmed Type albuterol sulfate 90 mcg/actuation 2 puffs inhalation Q4HP PRN 01/16/22 04/03/24 History aerosol inhaler shortness of air furosemide 40 mg tablet (Lasix) 40 mg PO BID 06/12/22 04/03/24 History ipratropium 0.5 mg-albuterol 3 mg 3 ml inhalation QIDP PRN Shortness 12/20/23 04/03/24 History (2.5 mg base)/3 mL nebulization Of Breath soln ropinirole 0.25 mg tablet 0.25 mg PO HS 12/20/23 04/03/24 History spironolactone 25 mg tablet 25 mg PO BID 12/20/23 04/03/24 History celecoxib 200 mg capsule 200 mg PO BID 04/03/24 04/03/24 History sertraline 100 mg tablet 100 mg PO DAILY 04/03/24 04/03/24 History celecoxib 200 mg capsule 100 mg PO BID 04/04/24 04/04/24 History dapagliflozin propanediol 10 mg 10 mg PO DAILY #30 tabs 04/04/24 Rx tablet (Farxiga) fluticasone fur. 100 mcg-umeclid 1 inh inhalation DAILY #1 ea 04/04/24 Rx 62.5 mcg-vilant 25 mcg inhalat.powder (Trelegy Ellipta) hydroxychloroquine 200 mg tablet 200 mg PO BID 04/04/24 04/04/24 History hydroxychloroquine 200 mg tablet 200 mg PO BID #120 tabs 04/04/24 Rx lisinopril 10 mg tablet 10 mg PO DAILY #90 tabs 04/04/24 Rx nicotine 21 mg/24 hr daily 21 mg transdermal DAILYP PRN 04/04/24 Rx transdermal patch Nicotine Cravings #1 packet pantoprazole 40 mg tablet,delayed 40 mg PO DAILY #90 tabs 04/04/24 Rx release prednisone 20 mg tablet 40 mg (2 x 20 mg) PO DAILY #10 tabs 04/04/24 Rx sertraline 100 mg tablet 100 mg PO DAILY #90 tabs 04/04/24 Rx New Prescriptions to Start Prescriptions: dapagliflozin propanediol [Farxiga] Palomares,[place] [id number] [Trelegy Ellipta] Palomares,[place] hydroxychloroquine Palomares,[place] lisinopril Palomares,[place] nicotine Palomares,Arash pantoprazole Palomares,Arash prednisone Palomares,[place] sertraline Palomares,[place] Allergies Allergy/AdvReac Type Severity Reaction Status Date / Time amoxicillin Allergy Unknown Verified 03/13/24 13:48 Results Laboratory Findings 04/03/24 06:08 04/04/24 07:30 PT/INR, D-dimer PT 10.0 seconds (10.1-12.5) L 04/03/24 00:20 INR 0.88 (0.9-1.1) L 04/03/24 00:20 D-Dimer 0.55 ug/mL (0.0-0.5) H 04/03/24 00:20 Abnormal lab findings: Abnormal Labs 04/03/24 04/03/24 04/03/24 00:10 00:20 06:08 MCHC 31.7 L PT 10.0 L INR 0.88 L D-Dimer 0.55 H VBG pCO2 53.8 H VBG HCO3 30.8 H VBG Total CO2 32.5 H VBG O2 Saturation 76.1 H VBG Base Excess 5.6 H Sodium Chloride Carbon Dioxide 36 H 37 H Anion Gap Estimated GFR 58 L Glucose 103 H 113 H POC Glucose Phosphorus 7.3 H Globulin 3.6 H 3.4 H Albumin/Globulin Ratio 1.0 L LDL Cholesterol Direct 99.33 L 04/03/24 04/04/24 20:03 07:30 MCHC PT INR D-Dimer VBG pCO2 VBG HCO3 VBG Total CO2 VBG O2 Saturation VBG Base Excess Sodium 133 L Chloride 95 L Carbon Dioxide 40 H Anion Gap 2.2 L Estimated GFR Glucose 103 H POC Glucose 117 H Phosphorus Globulin Albumin/Globulin Ratio LDL Cholesterol Direct Assessment and Plan *Assessment and plan (1) COPD exacerbation: Status: Acute Category: Medical Code(s): J44.1 - Chronic obstructive pulmonary disease with (acute) exacerbation (2) Acute respiratory failure with hypoxia: Status: Acute Category: Medical Code(s): J96.01 - Acute respiratory failure with hypoxia Plan Ms. Reich is a 53-year-old female current smoker greater than [id number] smoking history, carries a diagnosis COPD, using albuterol on a daily basis at baseline presented with worsening respiratory distress and lower extremity swelling. Patient since admission has been managed still with dysfunctional antibiotics. Patient had a knee surgery early January 2024, admits progressive worsening respiratory status with exertional desaturations to 80% at home prior to this hospital admission patient denies any worsening cough or any productive phlegm. Denies any sick contacts. CTA upon admission, limited by motion artifact but no dense consolidative changes. Questionable left lower lobe tree-in-bud opacities noted. No evidence of pulmonary embolism noted. Mild centrilobular emphysematous changes noted. Afebrile. Hemodynamically stable. No evidence of leukocytosis. Venous blood gas upon admission showed chronic hypercarbic respiratory failure with pH of 7.38 and pCO2 53.8. Polysomnography testing performed April 2022 no evidence of sleep apnea with AHI of 4. Examination mild to moderate respiratory distress. Mild expiratory wheezing noted. Plan: Initiate Trelegy 100 inhaler along with continuation of DuoNebs every 6 hours on as-needed basis Wean strategy prednisone 40 mg daily to complete a total of 5 days upon discharge Continue oxygen supplementation to maintain O2 saturation goal of 89% and above. Patient today on 3 L nasal cannula saturating 89 to 90%. Patient will likely need 3 L at rest and 45 with exertion upon discharge. Thank you for involving pulmonary in this patient care. Patient grant to be discharged over the weekend will follow the patient in pulmonary clinic 1 to 2 weeks post discharge
[2024-04-04] MEDS: HYDROXYCHLOROQUINE SULFATE 200MG TABLET 200 MG PO (10:37)
[2024-04-04] MEDS: CELECOXIB 100MG CAPSULE 100 MG PO (10:37)
[2024-04-04] MEDS: FLUTICASONE/UMECLIDIN/VILANTER 100/62.5/25MCG INHALER 1 PUFF IH (11:11)
[2024-04-04 11:12] VITALS: PULSE 90; O2SAT 87
--- NOTE | 2024-04-04 11:16 | EXP.DC.SUM ---
General Admission date:: 04/03/24 HPI HPI HPI: 53-year-old female presents to the ED for progressively worsening dyspnea on exertion last 3 weeks duration. States her symptoms started after a arthroplastic knee repair for meniscal tears. Uncomplicated postop course. Was never on anticoagulation after. Denies any chest pain, palpitations but has had significant leg worsening dyspnea and bilateral lower extremity edema. Denies any unilateral or leg pain. Endorses weight gain and sensations of fluid retention. Has had a left heart cath elevated LVEDP, normal coronaries in December 2021. Also has a history of lupus. Hospital Course Hospital Course Hospital Course: Patient admitted to hospital complaining of shortness of breath, and received dyspnea evaluation during hospitalization. Patient started on IV Lasix, DuoNebs, and glucocorticoids. Patient's respiratory status improved to baseline by 04/04/2024. Patient had echocardiogram which was read as relatively normal by rehabilitation consultant. Patient had CTA chest done showing no pulmonary embolus, infiltrates, or pulmonary edema. Patient's respiratory panel with results pending at time of hospital discharge. Patient had diffuse wheezing and tight air movement, which improved with Solu-Medrol/glucocorticoid administration. Patient seen by cardiology, pulmonary, and hospitalist during hospitalization. Patient discharged home on trilogy, prednisone 40 mg x 5 days, and with instructions to follow-up with pulmonary on outpatient basis. Patient also discharged home with instructions to follow-up with patient qualified for home oxygen 03/25/2024 PCP/cardiology on outpatient basis. Patient qualified for home oxygen 03/25/2024 at 6:20 AM with an O2 saturation registered at 84% on room air. Patient sent home on 3 L home oxygen. Patient also sent home with nicotine patches as needed to curve nicotine cravings. Appropriate smoking cessation advice given by Dr. Palomares during time of hospitalization. Exam Data for Last 24 hours Vital signs and Labs for Last 24 Hours: Temp Pulse Resp BP Pulse Ox O2 Del Method O2 Flow Rate 98.3 F 90 16 118/62 87 L Nasal Cannula 2 04/04/24 08:00 04/04/24 11:12 04/04/24 08:00 04/04/24 08:00 04/04/24 11:12 04/04/24 11:12 04/04/24 11:12 Laboratory Results - last 24 hr 04/03/24 11:15: POC Glucose 91 04/03/24 16:39: POC Glucose 102 04/03/24 20:03: POC Glucose 117 H 04/04/24 07:30: Sodium 133 L, Potassium 4.2, Chloride 95 L, Carbon Dioxide 40 H, Anion Gap 2.2 L, BUN 16, Creatinine 0.90, Estimated Creat Clear 68, Estimated GFR 66, Est GFR ( Amer) 80, Glucose 103 H, Calcium 8.8, Magnesium 2.1 I & O for Last 24 hours: Intake & Output 04/01/24 04/02/24 04/03/24 04/04/24 23:59 23:59 23:59 23:59 Intake Total 1380 / 1380 480 / 480 Output Total 0 / 0 0 / 0 Balance 1380 / 1380 480 / 480 Weight 176.901 kg 176.629 kg Results Data Completed and Pending Labs on day of discharge: Labs from last 24 hours 04/04/24 04/03/24 04/03/24 07:30 20:03 16:39 Sodium 133 L Potassium 4.2 Chloride 95 L Carbon Dioxide 40 H Anion Gap 2.2 L BUN 16 Creatinine 0.90 Estimated Creat Clear 68 Estimated GFR 66 Est GFR ( Amer) 80 Glucose 103 H POC Glucose 117 H 102 Calcium 8.8 Magnesium 2.1 04/03/24 11:15 Sodium Potassium Chloride Carbon Dioxide Anion Gap BUN Creatinine Estimated Creat Clear Estimated GFR Est GFR ( Amer) Glucose POC Glucose 91 Calcium Magnesium Imaging and Cardiology TESTING: Status: image reviewed by me Additional comments: 04/03/24 Echo: read as without overt abnormalities by rehabilitation consultant prior to hospital disposition with final result pending in computer. PROCEDURE INFORMATION: Exam: CTA Chest With Contrast Exam date and time: 04/03/2024 3:31 AM Age: 53 years old Clinical indication: Shortness of breath; Additional info: Pe TECHNIQUE: Imaging protocol: Computed tomographic angiography of the chest with contrast. Exam focused on the arteries. 3D rendering (Not supervised by radiologist): MIP and/or 3D reconstructed images were created by the technologist. Radiation optimization: All CT scans at this facility use at least one of these dose optimization techniques: automated exposure control; mA and/or kV adjustment per patient size (includes targeted exams where dose is matched to clinical indication); or iterative reconstruction. Contrast material: ISOVUE; Contrast volume: 70 ml; Contrast route: INTRAVENOUS (IV); COMPARISON: CT ANGIO CHEST PE PROTOCOL 01/16/2022 6:37 AM FINDINGS: Pulmonary arteries: Normal. No pulmonary emboli. Aorta: Unremarkable. No aortic aneurysm. No aortic dissection. Lungs: Unremarkable. No consolidation. No masses. Pleural spaces: Unremarkable. No pneumothorax. No pleural effusion. Heart: The heart is top-normal in size. Lymph nodes: Calcified right hilar lymph nodes are noted. Gallbladder and biliary ducts: The gallbladder is absent. There is no biliary ductal dilation. Adrenal glands: Left adrenal hyperplasia. Kidneys and ureters: 8.5 cm left renal cyst. Bones/joints: Xxmu-ev-wphbhvvf degenerative changes of the thoracic spine. No acute fracture. Soft tissues: Unremarkable. Other findings: Respiratory motion artifact is noted. IMPRESSION: 1. No pulmonary embolus. 2. Other nonemergent findings as noted. COMMENTS: Consistent with the [employer]'s Incidental Findings Committee white paper (J Am Yannick Radiol 2018): Any incidental renal lesion less than 1 cm or classified as too small to characterize, or any incidental cystic renal lesion characterized as simple-appearing, is likely benign. No follow-up imaging is recommended for these lesions per consensus recommendations based on imaging criteria. Ordering Physician: Fritz Rawls MD Date of Service: 04/03/24 Procedure(s): XR chest portable Accession Number(s): [id number] cc: Jevon Shin MD; Terra Lebron APRN~ PROCEDURE INFORMATION: Exam: XR Chest Exam date and time: 04/03/2024 12:17 AM Age: 53 years old Clinical indication: Shortness of breath and wheezing; Additional info: SOA wheezing TECHNIQUE: Imaging protocol: Radiologic exam of the chest. Views: 1 view. COMPARISON: CR XR CHEST 2V 01/18/2024 1:03 PM FINDINGS: Lungs: Unremarkable. No consolidation. Pleural spaces: Unremarkable. No pleural effusion. No pneumothorax. Heart/Mediastinum: Unremarkable. No cardiomegaly. Vasculature: Unremarkable. Bones/joints: Unremarkable. IMPRESSION: No acute findings. DS: Diagnosis Discharge Diagnosis (1) Acute on chronic hypoxic respiratory failure: Status: Acute Code(s): J96.21 - Acute and chronic respiratory failure with hypoxia (2) (HFpEF) heart failure with preserved ejection fraction: Status: Acute Code(s): I50.30 - Unspecified diastolic (congestive) heart failure (3) Asthma exacerbation: Status: Acute Code(s): J45.901 - Unspecified asthma with (acute) exacerbation Qualifiers: Asthma persistence: persistent Asthma severity: moderate Qualified Code(s): J45.41 - Moderate persistent asthma with (acute) exacerbation (4) COPD (chronic obstructive pulmonary disease): Status: Acute Code(s): J44.9 - Chronic obstructive pulmonary disease, unspecified Meds Home Medications and Allergies Home Medications Medication Instructions Recorded Confirmed Type albuterol sulfate 90 mcg/actuation 2 puffs inhalation Q4HP PRN 01/16/22 04/03/24 History aerosol inhaler shortness of air furosemide 40 mg tablet (Lasix) 40 mg PO BID 06/12/22 04/03/24 History ipratropium 0.5 mg-albuterol 3 mg 3 ml inhalation QIDP PRN Shortness 12/20/23 04/03/24 History (2.5 mg base)/3 mL nebulization Of Breath soln ropinirole 0.25 mg tablet 0.25 mg PO HS 12/20/23 04/03/24 History spironolactone 25 mg tablet 25 mg PO BID 12/20/23 04/03/24 History celecoxib 200 mg capsule 200 mg PO BID 04/03/24 04/03/24 History sertraline 100 mg tablet 100 mg PO DAILY 04/03/24 04/03/24 History celecoxib 200 mg capsule 100 mg PO BID 04/04/24 04/04/24 History dapagliflozin propanediol 10 mg 10 mg PO DAILY #30 tabs 04/04/24 Rx tablet (Farxiga) fluticasone fur. 100 mcg-umeclid 1 inh inhalation DAILY #1 ea 04/04/24 Rx 62.5 mcg-vilant 25 mcg inhalat.powder (Trelegy Ellipta) hydroxychloroquine 200 mg tablet 200 mg PO BID 04/04/24 04/04/24 History hydroxychloroquine 200 mg tablet 200 mg PO BID #120 tabs 04/04/24 Rx lisinopril 10 mg tablet 10 mg PO DAILY #90 tabs 04/04/24 Rx nicotine 21 mg/24 hr daily 21 mg transdermal DAILYP PRN 04/04/24 Rx transdermal patch Nicotine Cravings #1 packet pantoprazole 40 mg tablet,delayed 40 mg PO DAILY #90 tabs 04/04/24 Rx release prednisone 20 mg tablet 40 mg (2 x 20 mg) PO DAILY #10 tabs 04/04/24 Rx sertraline 100 mg tablet 100 mg PO DAILY #90 tabs 04/04/24 Rx New Prescriptions to Start Prescriptions: dapagliflozin propanediol [Farxiga] Palomares,Arash wffgspivyvk-kzkuqjdoq-[id number] [Trelegy Ellipta] Palomares,Arash hydroxychloroquine Palomares,[place] lisinopril Palomares,Arash nicotine Palomares,[place] pantoprazole Palomares,[place] prednisone Palomares,[place] sertraline Palomares,Arash Allergies Allergy/AdvReac Type Severity Reaction Status Date / Time amoxicillin Allergy Unknown Verified 03/13/24 13:48 Discharge Plan Disposition Patient Disposition: Home, Self-Care Condition: Fair Follow up Plan Follow up with: Benjamin Cheung MD [Staff Physician] - 04/15/24 10:00 am To Fan MD [Physician] - 04/23/24 1:15 pm (COPD exacerbation causing shortness of breath during recent hospitalization.) Terra Lebron APRN [Primary Care Provider] - 04/10/24 11:15 am Prescriptions/Medication Reconciliation: New sertraline 100 mg Tablet 100 mg PO DAILY Qty: 90 1RF pantoprazole 40 mg Tablet,Delayed Release (Dr/Ec) 40 mg PO DAILY Qty: 90 1RF lisinopril 10 mg Tablet 10 mg PO DAILY Qty: 90 1RF nicotine 21 mg/24 hr Patch 24 Hour 21 mg transdermal DAILYP PRN (Reason: Nicotine Cravings) Qty: 1 2RF hydroxychloroquine 200 mg Tablet 200 mg PO BID Qty: 120 1RF dapagliflozin propanediol [Farxiga] 10 mg Tablet 10 mg PO DAILY Qty: 30 0RF Trelegy Ellipta 100-62.5-25 mcg Blister With Device 1 inh inhalation DAILY Qty: 1 1RF prednisone 20 mg tablet 40 mg PO DAILY Qty: 10 0RF Continued ipratropium-albuterol 0.5 mg-3 mg(2.5 mg base)/3 mL solution for nebulization 3 ml inhalation QIDP PRN (Reason: Shortness Of Breath) Patient Comments: USE 1 AMPULE IN NEBULIZER 4 TIMES DAILY NEEDED FOR WHEEZING FOR 30 DAYS spironolactone 25 mg tablet 25 mg PO BID ropinirole 0.25 mg tablet 0.25 mg PO HS furosemide [Lasix] 40 mg Tablet 40 mg PO BID albuterol sulfate 6.7 GM HFA aerosol inhaler 2 puffs IH Q4HP PRN (Reason: shortness of air) celecoxib 200 mg capsule 200 mg PO BID sertraline 100 mg tablet 100 mg PO DAILY celecoxib 200 mg capsule 100 mg PO BID hydroxychloroquine 200 mg tablet 200 mg PO BID Patient Comments: TAKE 1 TABLET BY MOUTH TWICE DAILY Other Ambulatory Orders: Home Medical Equipment (Routine) Location: None Selected Ordered By: Arash Palomares Problem Reconciliation Problems Reviewed?: Yes Patient Discharge Instructions ACTIVITY: Continue current activity DIET: continue same diet Patient Instructions: DI for Heart Failure, DI for Chronic Obstructive Pulmonary Disease, DI for Hypoxia Print Language: Syrian Providers Primary Care Provider: Terra Lebron Admit Provider: Bang Cheung Attending Provider: Arash Palomares
--- NOTE | 2024-04-04 12:00 | CARE MANAGER ---
Patient will require home O2 @ 3L per NC. I met with patient to discuss discharge planning and Patient Choice was signed for [facility]. Order/clinical faxed and portable will be delivered to room prior to discharge.
[2024-04-04 22:07] LABS: POC Glucose,Bedside 99 (70-110)
--- NOTE | 2024-04-08 13:18 | CARE MANAGER ---
Attempted to contact patient related to hospital discharge x2. Left VM message. ANGEL LUIS Carrillo
== END 2024-04-04 13:02 | disposition home or self-care (01) ==
LOC: ER 01:06 → 2ND 05:49
PROVIDERS: Physician Assistant; Admitting Provider Student in an Organized Health Care Education/Training Program; Emergency Provider Emergency Medicine; PCP Nurse Practitioner Family; Visit Provider Internal Medicine
DX: F17.210 Nicotine dependence, cigarettes, uncomplicated; I50.30 Unspecified diastolic (congestive) heart failure; J96.21 Acute and chronic respiratory failure with hypoxia; J44.1 Chronic obstructive pulmonary disease with (acute) exacerbation; R06.02 Shortness of breath; Z68.44 Body mass index [BMI] 60.0-69.9, adult; Z79.899 Other long term (current) drug therapy; E66.01 Morbid (severe) obesity due to excess calories; Z99.81 Dependence on supplemental oxygen; I11.0 Hypertensive heart disease with heart failure
CPT/HCPCS: 36415; 71045; 71275; 80048; 80053; 80061; 82803; 82962; 83036; 83605; 83735; 83880; 84100; 84484; 85025; 85378; 85610; 87581; 87632; 87635; 87798; 93005; 93306; 94640; 94761; 99285; 99291; G0378; J1650; J1940; J2919; J7613; J7620; Q9967

== ENCOUNTER 2024-05-08 12:26 | Outpatient (CLI) | payer BC, SELFPAY ==
[2024-05-08 13:05] LABS: Basophils # 0.1 K/mm3 (0-0.2); Basophils % 0.9 % (0.1-2.0); Eosinophils # 0.1 K/mm3 (0.0-0.4); Eosinophils % 1.7 % (0.1-12.0); Hematocrit 48.4 % (37.0-47.0); Hemoglobin 14.9 g/dL (12.2-16.2); Lymphocytes # 1.8 K/mm3 (0.7-4.5); Lymphocytes % 24.1 % (10-50); Mean Corpuscular HGB Conc 30.9 g/dL (31.8-35.4); Mean Corpuscular Hemoglobin 28.1 pg (27.0-31.2); Mean Platelet Volume 9.1 fl (7.4-10.4); Monocytes # 0.4 K/mm3 (0.1-1.0); Monocytes % 6.1 % (1.7-9.3); Neutrophils # 4.9 K/mm3 (1.8-7.8); Neutrophils % 67.2 % (37.0-80.0); Platelet Count 270 K/mm3 (142-424); Red Blood Count 5.32 M/mm3 (4.20-5.40); Red Cell Distribution Width 15.8 % (11.5-17.5); White Blood Count 7.3 K/mm3 (4.8-10.8)
[2024-05-14 17:35] LABS: Alpha-1-Antitrypsin 179 mg/dL (101-187)
[2024-05-16 10:18] LABS: D001-IgE D pteronyssinus 1.15 kU/L (Class II); D002-IgE D farinae 0.88 kU/L (Class II); E001-IgE Cat Dander <0.10 kU/L (Class 0); E005-IgE Dog Dander <0.10 kU/L (Class 0); E072-IgE Mouse Urine <0.10 kU/L (Class 0); G002-IgE Bermuda Grass <0.10 kU/L (Class 0); G006-IgE Timothy Grass <0.10 kU/L (Class 0); I006-IgE Cockroach, German 0.52 kU/L (Class I); Immunoglobulin E, Total 217 IU/mL (6-495); M001-IgE Penicillium chrysogen <0.10 kU/L (Class 0); M002-IgE Cladosporium herbarum <0.10 kU/L (Class 0); M003-IgE Aspergillus fumigatus <0.10 kU/L (Class 0); M006-IgE Alternaria alternata <0.10 kU/L (Class 0); T001-IgE Maple/Box Elder <0.10 kU/L (Class 0); T003-IgE Common Silver Birch <0.10 kU/L (Class 0); T006-IgE Cedar, Mountain <0.10 kU/L (Class 0); T007-IgE Oak, White <0.10 kU/L (Class 0); T008-IgE Elm, American <0.10 kU/L (Class 0); T010-IgE Walnut <0.10 kU/L (Class 0); T011-IgE Maple Leaf Sycamore <0.10 kU/L (Class 0); T014-IgE Cottonwood <0.10 kU/L (Class 0); T015-IgE Ash, White <0.10 kU/L (Class 0); T022-IgE Pecan, Hickory <0.10 kU/L (Class 0); T070-IgE White Mulberry <0.10 kU/L (Class 0); W001-IgE Ragweed, Short <0.10 kU/L (Class 0); W011-IgE Thistle, Russian <0.10 kU/L (Class 0); W014-IgE Pigweed, Common <0.10 kU/L (Class 0); W018-IgE Sheep Sorrel <0.10 kU/L (Class 0)
== END 2024-05-08 23:59 | disposition home or self-care (01) ==
LOC: LAB 12:27
PROVIDERS: PCP Nurse Practitioner Family; Visit Provider Internal Medicine Pulmonary Disease
DX: J43.9 Emphysema, unspecified (principal); J45.909 Unspecified asthma, uncomplicated; Z72.0 Tobacco use
CPT/HCPCS: 36415; 82103; 82104; 82785; 85025; 86003

== ENCOUNTER → 2024-07-03 20:26 | Outpatient (CLI) | payer BC, SELFPAY | LOC: SL 20:27 | PROVIDERS: PCP Nurse Practitioner Family; Visit Provider Nurse Practitioner Family | DX: G47.33 Obstructive sleep apnea (adult) (pediatric) (principal); G47.10 Hypersomnia, unspecified; I10 Essential (primary) hypertension; M32.9 Systemic lupus erythematosus, unspecified; E11.9 Type 2 diabetes mellitus without complications; I50.9 Heart failure, unspecified; J45.909 Unspecified asthma, uncomplicated; E66.9 Obesity, unspecified; Z68.43 Body mass index [BMI] 50.0-59.9, adult; Z99.81 Dependence on supplemental oxygen | CPT/HCPCS: 95811 ==

== ENCOUNTER 2024-07-14 06:48 | Observation (INO) | payer BC, SELFPAY ==
[2024-07-14] VITALS (19 sets, daily range): BP systolic 92–165; BP diastolic 60–93; PULSE 70–103; RESP 18–24; TEMP 36.6–36.8; O2SAT 90–97; BMI 60.2; BMI 60.7
--- NOTE | 2024-07-14 06:57 | ECG_ITS ---
APPROVED REPORT Exam: Resting ECG HR:84 bpm ECG Measurements Heart Rate 84 AXES SD 174 P 72 QRSd 102 QRS 58 QT 380 T 62 QTc 421 Conclusion SINUS RHYTHM LOW QRS VOLTAGE IN PRECORDIAL LEADS [QRS DEFLECTION < 1.0 mV IN CHEST LEADS] BORDERLINE ECG UNCONFIRMED REPORT Electronically signed by : INGRID MARTINEZ, 07/15/2024 06:29:36
--- NOTE | 2024-07-14 07:10 | PC.NURSE ---
DR JOE AT BEDSIDE
--- NOTE | 2024-07-14 07:16 | XR_ITS ---
PROCEDURE INFORMATION: Exam: XR Chest Exam date and time: 07/14/2024 7:25 AM Age: 53 years old Clinical indication: Dyspnea TECHNIQUE: Imaging protocol: Radiologic exam of the chest. Views: 1 view. COMPARISON: CT ANGIO CHEST PE PROTOCOL 04/03/2024 3:31 AM FINDINGS: Lungs: No focal consolidation. Mild interstitial and vascular prominence. Pleural spaces: No pneumothorax or pleural effusion. Heart/Mediastinum: Heart is enlarged. Mediastinal contours unremarkable.. Bones/joints: No acute osseous or soft tissue abnormality. IMPRESSION: 1. Mild pulmonary edema. Possible CHF. 2. Cardiomegaly.
--- NOTE | 2024-07-14 07:21 | HMH.EDGENADL ---
Discharge Plan Disposition Patient Disposition: Admitted Chief Complaint: Shortness of Breath/Dyspnea Prescriptions Prescriptions: No Action fluticasone propionate [Flonase Allergy Relief] 50 mcg/actuation spray,suspension 2 spray intranasal DAILY 90 Days Qty: 16 2RF Rx Instructions: administer into each nostril ipratropium-albuterol 0.5 mg-3 mg(2.5 mg base)/3 mL solution for nebulization 3 ml inhalation QIDP PRN (Reason: Shortness Of Breath) Patient Comments: USE 1 AMPULE IN NEBULIZER 4 TIMES DAILY NEEDED FOR WHEEZING FOR 30 DAYS spironolactone 25 mg tablet 25 mg PO BID ropinirole 0.25 mg tablet 0.25 mg PO HS bumetanide 2 mg tablet 2 mg PO BID Qty: 60 2RF dapagliflozin propanediol [Farxiga] 10 mg tablet 10 mg PO DAILY Qty: 30 5RF pantoprazole 40 mg tablet,delayed release (DR/EC) 40 mg PO DAILY Qty: 90 5RF albuterol sulfate 6.7 GM HFA aerosol inhaler 2 puffs IH Q4HP PRN (Reason: shortness of air) celecoxib 200 mg capsule 200 mg PO BID sertraline 100 mg tablet 100 mg PO DAILY hydroxychloroquine 200 mg tablet 200 mg PO BID Patient Comments: TAKE 1 TABLET BY MOUTH TWICE DAILY lisinopril 10 mg Tablet 10 mg PO DAILY Qty: 90 1RF nicotine 21 mg/24 hr Patch 24 Hour 21 mg transdermal DAILYP PRN (Reason: Nicotine Cravings) Qty: 1 2RF Trelegy Ellipta 100-62.5-25 mcg Blister With Device 1 inh inhalation DAILY Qty: 1 1RF Referrals Follow up/Referrals: Terra Lebron APRN [Primary Care Provider] - See instructions Clinical Impressions Clinical Impression: Acute exacerbation of chronic obstructive pulmonary disease, Acute hypoxic respiratory failure, Acute hypercapnic respiratory failure Print Language Print Language: Persian Discharge ED Provider: Laura Rodriguez General Adult HPI General Chief complaint: Shortness of Breath/Dyspnea Stated complaint: SOA headache neck pain Time Seen by Provider: 07/14/24 07:06 Mode of Arrival: Ambulatory Source of Information: Patient Limitations: No Limitations Description of Symptoms (Recalled from ER Triage Doc. by RN): Pt reports to ED with cc of SOA. Upon arrival pt O2 82% on RA.Pt placed on 2L of O2 and is now 92%. Pt states wearing 2L of oxygen at night and was more short of breath than normal after taking her O2 off this morning. Pt states having a headache and neck pain. Pt also states being fatigue since Sunday. Pt states being on antibiotics for cellulitis at this time. History of Present Illness HPI narrative: The patient is a 53-year-old female with a history of COPD oxygen dependent at night as well as morbid obesity who presents today with worsening shortness of breath and wheezing over the last several days. She has also had increased somnolence. She recently had a sleep study but has not heard results from that. She has a questionable history of heart failure as she has been told by different physicians that she does not does not have that condition. She has chronic lower extremity edema she recently transition from Lasix to Bumex and states that her edema is at his baseline. She is currently being treated left lower extremity for cellulitis. Related Data Home Medications ?Medication ?Instructions ?Recorded ?Confirmed albuterol sulfate 90 mcg/actuation 2 puffs inhalation Q4HP PRN 01/16/22 07/01/24 aerosol inhaler shortness of air ipratropium 0.5 mg-albuterol 3 mg 3 ml inhalation QIDP PRN Shortness 12/20/23 07/01/24 (2.5 mg base)/3 mL nebulization Of Breath soln ropinirole 0.25 mg tablet 0.25 mg PO HS 12/20/23 07/01/24 spironolactone 25 mg tablet 25 mg PO BID 12/20/23 07/01/24 celecoxib 200 mg capsule 200 mg PO BID 04/03/24 07/01/24 sertraline 100 mg tablet 100 mg PO DAILY 04/03/24 07/01/24 hydroxychloroquine 200 mg tablet 200 mg PO BID 04/04/24 07/01/24 Previous Rx's ?Medication ?Instructions ?Recorded fluticasone fur. 100 mcg-umeclid 1 inh inhalation DAILY #1 ea 04/04/24 62.5 mcg-vilant 25 mcg inhalat.powder (Trelegy Ellipta) lisinopril 10 mg tablet 10 mg PO DAILY #90 tabs 04/04/24 nicotine 21 mg/24 hr daily 21 mg transdermal DAILYP PRN 04/04/24 transdermal patch Nicotine Cravings #1 packet fluticasone propionate 50 2 spray intranasal DAILY 90 days 05/08/24 mcg/actuation nasal #16 grams spray,suspension (Flonase Allergy Relief) bumetanide 2 mg tablet 2 mg PO BID #60 tabs 07/01/24 dapagliflozin propanediol 10 mg 10 mg PO DAILY #30 tabs 07/03/24 tablet (Farxiga) pantoprazole 40 mg tablet,delayed 40 mg PO DAILY #90 tabs 07/03/24 release Allergies Allergy/AdvReac Type Severity Reaction Status Date / Time amoxicillin Allergy Unknown Verified 07/01/24 14:45 [facility] Disclaimer: The information contained in this section may have been updated after the patient was seen, as this information can be updated by other users. 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 Chronic pain of left heel Achilles tendinitis of left lower extremity Atypical angina Pulmonary hypertension Sphincter of Oddi dysfunction Acute respiratory failure with hypoxia COPD exacerbation Depression Arthritis Congestive heart failure Cholecystectomy planned Chronic cough Asthma Gallbladder disease Allergies Daytime somnolence NIKKI (obstructive sleep apnea) Restless sleeper Snoring Weight gain Morbid obesity HTN (hypertension) Dizziness Syncope Surgical History S/P left knee arthroscopy Status post arthroscopic knee surgery H/O arthroscopic knee surgery Hx of cardiac cath Hx of tubal ligation History of endometrial ablation Family History Mother Blood disorder Mother Diabetes Social History Smoking Status: Current every day smoker tobacco type: cigarettes packs per day: 1 years smoked: 30 second hand exposure: Yes alcohol intake: never substance use type: denies use current occupational status: employed Travel in the last 8 weeks: None household members: spouse housing: house 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 Other Medical History Have you received the Flu Vaccine for this season: No Have you received the Pneumonia Vaccine: No ROS Obtained: Yes All systems reviewed & no additional complaints except as documented Physical Exam General General appearance: alert and in no apparent distress Respiratory Respiratory exam: Present other (Patient has diffuse expiratory wheezing prolonged expiratory phase she is speaking in fragmented sentences oxygen saturation's were 83% on room air she was placed on 2 L nasal cannula and that corrected into the mid 90s) Cardiovascular Cardiovascular exam: Present regular rate, normal rhythm and other (Bilateral lower extremity edema that is pitting symmetric) Neurological Exam Neurological exam: Present alert and oriented X3 Medical Decision Making Medical Records Screening: Per USPSTF and CDC recommendations, given the prevalence of disease in our region, it is our hospital?s policy to screen for HIV and viral Hepatitis for all patients aged 18 and over and those with ongoing risk factors. Se Inquiry Pt receiving controlled substance: No Vital Signs: 07/14/24 06:57 07/14/24 07:30 07/14/24 08:00 Temperature 98.3 F Temperature Source Oral Pulse Rate 72 103 H Pulse Rate [Left] 100 H Respiratory Rate 22 Blood Pressure 150/77 H 159/83 H Blood Pressure [Right Arm] 157/76 H Blood Pressure Mean [Right Arm] 103 Blood Pressure Source [Right Arm] Automatic Cuff 02 Sat by Pulse Oximetry 92 L 91 L 90 L Oxygen Delivery Method Nasal Cannula Nasal Cannula Nasal Cannula Oxygen Flow Rate (LPM) 2 07/14/24 08:30 Temperature Temperature Source Pulse Rate 72 Pulse Rate [Left] Respiratory Rate Blood Pressure 165/91 H Blood Pressure [Right Arm] Blood Pressure Mean [Right Arm] Blood Pressure Source [Right Arm] 02 Sat by Pulse Oximetry 92 L Oxygen Delivery Method Nasal Cannula Oxygen Flow Rate (LPM) Lab Data Lab results reviewed: Yes I reviewed the patient's lab results. Lab Results 07/14/24 07:18: VBG pH 7.36, VBG pCO2 59.4 H, VBG pO2 46.5 H, VBG HCO3 32.4 H, VBG Total CO2 34.3 H, VBG O2 Saturation 83.9 H, VBG Base Excess 6.9 H, VBG Lactic Acid 1.2 07/14/24 07:23: WBC 7.5, RBC 5.01, Hgb 14.1, Hct 44.1, MCV 88.1, MCH 28.2, MCHC 32.0, RDW 15.8, Plt Count 245, MPV 9.0, Neut % (Auto) 74.4, Lymph % (Auto) 17.6, Andrew % (Auto) 5.9, Eos % (Auto) 1.1, Baso % (Auto) 1.0, Neut # (Auto) 5.6, Lymph # (Auto) 1.3, Andrew # (Auto) 0.4, Eos # (Auto) 0.1, Baso # (Auto) 0.1, D-Dimer 0.59 H, Sodium 137, Potassium 4.2, Chloride 98, Carbon Dioxide 39 H, Anion Gap 4.2 L, BUN 13, Creatinine 0.70, Estimated Creat Clear 91, Estimated GFR 88, Est GFR ( Amer) 106, Glucose 100, Calcium 8.9, Total Bilirubin 0.8, AST 31, ALT 25, Alkaline Phosphatase 106, Troponin I < 0.01, NT-Pro-B Natriuret Pep 61.0, Total Protein 7.5, Albumin 3.9, Globulin 3.6 H, Albumin/Globulin Ratio 1.1, SARS-CoV-2 (PCR) Not detected, HIV 1&2 Antibody Rapid Nonreactive, Influenza A Untype (PCR) Not detected, Influenza Type B (PCR) Not detected 07/14/24 08:30: VBG pH 7.30 L, VBG pCO2 76.2 H, VBG pO2 43.4 H, VBG HCO3 36.3 H, VBG Total CO2 38.7 H, VBG O2 Saturation 78.1 H, VBG Base Excess 9.8 H, VBG Lactic Acid 1.1 07/14/24 07:23 07/14/24 07:23 Orders (Tests/Meds): ED MEDICATIONS Discontinued Medications Generic Name Dose Route Start Last Admin Trade Name Freq PRN Reason Stop Dose Admin Albuterol/Ipratropium 3 ml 07/14/24 07:16 07/14/24 07:23 Ipratropium/Albuterol 3 Ml Neb IH 07/14/24 07:17 3 ml ONCE ONE Administration Dexamethasone Sodium Phosphate 10 mg 07/14/24 07:16 07/14/24 07:25 Dexamethasone 4mg/Ml 1ml Vial IV 07/14/24 07:17 10 mg ONCE ONE Administration Magnesium Sulfate 2 gm in 50 mls @ 50 mls/hr 07/14/24 07:16 07/14/24 07:23 Magnesium Sulfate 2gm/50ml Premix IV 07/14/24 08:15 50 mls/hr ONCE ONE Administration Doxycycline Hyclate 100 mg/ 250 mls @ 166.667 mls/hr 07/14/24 08:55 Sodium Chloride IV 07/14/24 08:56 ONCE ONE ORDERS Category Date Time Status CXR --portable [XR chest portable] Stat Exams 07/14/24 07:16 Taken BNP [NT Pro Brain Natriuretic Pep.] Stat Lab 07/14/24 07:23 Completed CBC w/Auto Diff [Complete Blood Count Auto Diff] Stat Lab 07/14/24 07:23 Completed CMP [Comprehensive Metabolic Panel] Stat Lab 07/14/24 07:23 Completed D-Dimer Stat Lab 07/14/24 07:23 Completed HIV (1&2) Antibody Rapid Stat Lab 07/14/24 07:23 Completed Hep C Ab with Reflex to RNA Stat Lab 07/14/24 07:23 Received Rapid PCR Covid and Flu A/B Stat Lab 07/14/24 07:23 Completed Trop I [Troponin I] Stat Lab 07/14/24 07:23 Completed Troponin I Q3H Lab 07/14/24 10:30 Ordered Troponin I Q3H Lab 07/14/24 13:30 Ordered Venous Blood Gas Stat RT 07/14/24 07:18 Completed Venous Blood Gas Stat RT 07/14/24 08:30 Completed Medical Decision Narrative: 53-year-old female presenting today with increased shortness of breath and wheezing. She has a history of COPD also has increased somnolence likely due to sleep apnea and CO2 retention. She has not had results from her sleep study but likely needs CPAP or BiPAP at home. She is not an extremis right now but does have symptoms consistent with a COPD exacerbation will treat with nebs steroids magnesium likely antibiotics but will hold on antibiotics until further evaluation is done. Pulmonary embolism and heart failure and NV certainly on the differential we will reassess her at this initial workup is complete. Chest x-ray performed which I personally interpreted which shows no acute cardiopulmonary emergency. Labs essentially unremarkable from an emergency standpoint. Patient's D-dimer is less than 1.0 and utilizing years criteria will not obtain a CT PE and I think it is very unlikely. On reassessment patient is sleeping oxygen saturations even on oxygen supplementation are in the upper 80s and low 90s. She is very difficult to arouse and is excessively somnolent right now. I suspect she has severe sleep apnea. She did recently have a sleep study and try to get the results of those. She is still tight and has a prolonged expiratory phase however with painful stimulus I was able to wake her up to talk to her and for a few moments she was able to tell me that she does feel better but then she immediately falls back asleep inappropriately. I will discuss with our respiratory therapist who performs the sleep studies also will repeat a venous blood gas to see if she is acutely retaining. I may need to admit her for positive pressure ventilation and to try to get that set up at home versus try to have that set up from the emergency department. On reassessment patient remains very somnolent and repeat blood gas shows worsening acid-base status with a pH of 7.30 and a pCO2 almost 80 at this point. She needs to be on BiPAP. I spoke with Irma Ruth to set up respiratory and we found out that her sleep study has not yet been read. Therefore I have put her on BiPAP in the emergency department and will admit her for further management of her COPD exacerbation while they get her set up outpatient likely if her sleep study was read as appropriate. Family and patient are agreeable to this plan she was admitted. Critical Care Critical Care Time Critical Care Time: Yes Attestation: On 07/14/24, the high probability of a clinically significant, sudden or life threatening deterioration of the following system(s) required my full and direct attention, intervention and personal management. The time I documented below is in addition to time spent performing reported procedures but includes the following listed in this critical care notation. Total Time Total Critical Care Time: 35
[2024-07-14] MEDS: IPRATROPIUM/ALBUTEROL 3 ML NEB IH ×3 (07:23→21:51)
[2024-07-14] MEDS: MAGNESIUM SULFATE IN WATER 2 GM/50 ML PIGGYBACK IV (07:23)
[2024-07-14] MEDS: DEXAMETHASONE 4MG/ML 1ML VIAL 10 MG IV (07:25)
--- NOTE | 2024-07-14 07:31 | PC.NURSE ---
XR AT BEDSIDE
[2024-07-14 07:38] LABS: Coronavirus 19, PCR Not Detected (NotDetected); Influenza A, PCR Not Detected (NotDetected); Influenza B, PCR Not Detected (NotDetected)
[2024-07-14 07:42] LABS: Lactate Venous 1.2 mmol/L (0.4-2.0); VBG Base Excess 6.9 mmol/L (-2.4-2.3); VBG HCO3 32.4 mmol/L (23-30); VBG Oxygen Saturation 83.9 % (50-70); VBG PH 7.36 mmol/L (7.31-7.41); VBG PO2 46.5 mmol/L (28-40); VBG Total CO2 34.3 mmol/L (23-27)
[2024-07-14 07:45] LABS: VBG PCO2 59.4 mmol/L (35-51)
[2024-07-14 07:51] LABS: Basophils # 0.1 K/mm3 (0-0.2); Eosinophils # 0.1 K/mm3 (0.0-0.4); Eosinophils % 1.1 % (0.1-12.0); Hematocrit 44.1 % (37.0-47.0); Hemoglobin 14.1 g/dL (12.2-16.2); Lymphocytes # 1.3 K/mm3 (0.7-4.5); Lymphocytes % 17.6 % (10-50); Mean Corpuscular Hemoglobin 28.2 pg (27.0-31.2); Mean Corpuscular Volume 88.1 fl (81-99); Monocytes # 0.4 K/mm3 (0.1-1.0); Monocytes % 5.9 % (1.7-9.3); Neutrophils # 5.6 K/mm3 (1.8-7.8); Neutrophils % 74.4 % (37.0-80.0); Platelet Count 245 K/mm3 (142-424); Red Blood Count 5.01 M/mm3 (4.20-5.40); Red Cell Distribution Width 15.8 % (11.5-17.5); White Blood Count 7.5 K/mm3 (4.8-10.8)
[2024-07-14 07:54] LABS: Alanine Aminotransferase 25 U/L (12-78); Albumin Level 3.9 g/dl (3.5-5.0); Albumin/Globulin Ratio 1.1 (1.1-1.8); Alkaline Phosphatase 106 U/L (38-126); Anion Gap 4.2 mEq/L (5-15); Aspartate Amino Transferase 31 U/L (14-36); Bilirubin,Total 0.8 mg/dl (0.2-1.3); Blood Urea Nitrogen 13 mg/dl (7-17); Calcium 8.9 mg/dl (8.4-10.2); Carbon Dioxide 39 mmol/L (22.0-30.0); Chloride 98 mmol/L (98-107); Creatinine Clearance Estimated 91 mL/min (50-200); Estimated Glomerular Filt Rate 88 ml/min (>60); GFR (African American) 106 ML/MIN (>60); Globulin 3.6 g/dL (1.3-3.2); Glucose 100 mg/dl (74-100); Potassium 4.2 mmoL/L (3.5-5.1); Sodium 137 mmol/L (136-145); Total Protein,Serum 7.5 g/dl (6.3-8.2)
[2024-07-14 07:59] LABS: D-Dimer 0.59 ug/mL (0.0-0.5)
[2024-07-14 08:21] LABS: Troponin I < 0.01 ng/ml (0.00-0.034)
[2024-07-14 08:22] LABS: HIV (1&2) Antibody Rapid NONREACTIVE (NONREACTIVE)
--- NOTE | 2024-07-14 08:24 | PC.NURSE ---
dr green at bedside updating pt and family
--- NOTE | 2024-07-14 08:25 | PC.NURSE ---
DR JOE AT BEDSIDE TO UPDATE PT AND FAMILY
--- NOTE | 2024-07-14 08:33 | PC.NURSE ---
REPEAT VBG SENT
[2024-07-14 08:42] LABS: Lactate Venous 1.1 mmol/L (0.4-2.0); VBG Base Excess 9.8 mmol/L (-2.4-2.3); VBG HCO3 36.3 mmol/L (23-30); VBG Oxygen Saturation 78.1 % (50-70); VBG PO2 43.4 mmol/L (28-40); VBG Total CO2 38.7 mmol/L (23-27)
[2024-07-14 08:44] LABS: VBG PCO2 76.2 mmol/L (35-51)
--- NOTE | 2024-07-14 08:52 | PC.NURSE ---
CONTACTED DR KAUFMAN'S OFFICE, SLEEP STUDY HAS NOT BEEN READ YET. DR JOE SPEAKING WITH JESSICA SIDHU IN RESPIRATORY TO DISCUSS C-PAP OPTIONS. JESSICA WILL ALSO CONTACT DR KAUFMAN TO HAVE SLEEP STUDY READ DR JOE AT BEDSIDE TO UPDATE PT AND FAMILY
--- NOTE | 2024-07-14 08:53 | PC.NURSE ---
dr green at bedside updating pt
--- NOTE | 2024-07-14 08:56 | PC.NURSE ---
RESPIRATORY NOTIFIED FOR BI-PAP
--- NOTE | 2024-07-14 08:59 | PC.NURSE ---
rt at bedside with bipap
--- NOTE | 2024-07-14 08:59 | PC.NURSE ---
RESPIRATORY AT BEDSIDE TO APPLY BI-PAP
[2024-07-14] MEDS: DOXYCYCLINE HYCLATE 100 MG in 0.9 % SODIUM CHLORIDE 250 ML 166.667 MG IV (09:11)
--- NOTE | 2024-07-14 09:14 | PC.NURSE ---
house aware of admission
--- NOTE | 2024-07-14 09:22 | PC.NURSE ---
pt is going to room 216 per house
--- NOTE | 2024-07-14 09:30 | PC.NURSE ---
called report to saad urena
--- NOTE | 2024-07-14 09:42 | HMH.PHAINT1 ---
Pharmacy Intervention Comments: MEDICATION RECONCILIATION COMPLETED ON PATIENT USING EXTERNAL FILL HISTORY FROM PHARMACY AND LIST FROM CARDIOLOGY OFFICE. -DOMINIC NEAL, ARMANDOD
--- NOTE | 2024-07-14 09:44 | P.CONS_ITS ---
History of Present Illness History of present illness: Ms. Reich is a 53-year-old female smoker greater than [id number] smoking history. Pulmonary emphysema asthma history currently on triple inhaler therapy last seen in the hospital March 2024 with worsening respiratory distress discharged home on prednisone presented to the ER with worsening respiratory distress and pulmonary was called for further evaluation and management. Denies any sick contacts but denies any worsening cough/productive phlegm/worsening wheezing. [facility] Disclaimer: The information contained in this section may have been updated after the patient was seen, as this information can be updated by other users. 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 Chronic pain of left heel Achilles tendinitis of left lower extremity Atypical angina Pulmonary hypertension Sphincter of Oddi dysfunction Acute respiratory failure with hypoxia COPD exacerbation Depression Arthritis Congestive heart failure Cholecystectomy planned Chronic cough Asthma Gallbladder disease Allergies Daytime somnolence Restless sleeper Snoring Weight gain Morbid obesity HTN (hypertension) Dizziness Syncope Surgical History S/P left knee arthroscopy Status post arthroscopic knee surgery H/O arthroscopic knee surgery Hx of cardiac cath Hx of tubal ligation History of endometrial ablation Family History Mother Blood disorder Mother Diabetes Social History (Updated 07/14/24 @ 09:29 by Tia Saba RN) Smoking Status: Current every day smoker tobacco type: cigarettes packs per day: 1 years smoked: 30 second hand exposure: Yes alcohol intake: never substance use type: denies use current occupational status: employed Travel in the last 8 weeks: None household members: spouse housing: house 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 *Cardiovascular Cardiovascular: Reports dyspnea, Reports dyspnea on exertion, Reports leg edema and Reports orthopnea *Respiratory Respiratory: Denies chest congestion, Denies cough, Reports dyspnea, Reports dyspnea on exertion, Denies excessive phlegm production, Denies hemoptysis, Denies pain on inspiration, Denies pain with cough and Denies wheezing *Gastrointestinal Gastrointestinal: Denies abdominal pain *Musculoskeletal Musculoskeletal: Reports back pain Allergic/Immunologic Allergic/Immunologic: Denies wheezing Pulmonology Exam Inpatient Vital signs and Labs for Last 24 Hours: Temp Pulse Resp BP Pulse Ox O2 Del Method O2 Flow Rate 97.8 F 79 18 161/93 H 91 L BiPAP 2 07/14/24 09:31 07/14/24 09:31 07/14/24 09:31 07/14/24 09:31 07/14/24 09:30 07/14/24 09:31 07/14/24 06:57 FiO2 30 07/14/24 09:05 Laboratory Results - last 24 hr 07/14/24 07:18: VBG pH 7.36, VBG pCO2 59.4 H, VBG pO2 46.5 H, VBG HCO3 32.4 H, V BG Total CO2 34.3 H, VBG O2 Saturation 83.9 H, VBG Base Excess 6.9 H, VBG Lactic Acid 1.2 07/14/24 07:23: WBC 7.5, RBC 5.01, Hgb 14.1, Hct 44.1, MCV 88.1, MCH 28.2, MCHC 32.0, RDW 15.8, Plt Count 245, MPV 9.0, Neut % (Auto) 74.4, Lymph % (Auto) 17.6, Anson % (Auto) 5.9, Eos % (Auto) 1.1, Baso % (Auto) 1.0, Neut # (Auto) 5.6, Lymph # (Auto) 1.3, Anson # (Auto) 0.4, Eos # (Auto) 0.1, Baso # (Auto) 0.1, D-Dimer 0.59 H, Sodium 137, Potassium 4.2, Chloride 98, Carbon Dioxide 39 H, Anion Gap 4.2 L, BUN 13, Creatinine 0.70, Estimated Creat Clear 91, Estimated GFR 88, Est GFR ( Amer) 106, Glucose 100, Calcium 8.9, Total Bilirubin 0.8, AST 31, ALT 25, Alkaline Phosphatase 106, Troponin I < 0.01, NT-Pro-B Natriuret Pep 61.0, Total Protein 7.5, Albumin 3.9, Globulin 3.6 H, Albumin/Globulin Ratio 1.1, SARS-CoV-2 (PCR) Not detected, HIV 1&2 Antibody Rapid Nonreactive, Influenza A Untype (PCR) Not detected, Influenza Type B (PCR) Not detected 07/14/24 08:30: VBG pH 7.30 L, VBG pCO2 76.2 H, VBG pO2 43.4 H, VBG HCO3 36.3 H, VBG Total CO2 38.7 H, VBG O2 Saturation 78.1 H, VBG Base Excess 9.8 H, VBG Lactic Acid 1.1 I & O for Labs for Last 24 Hours: Intake & Output 07/11/24 07/12/24 07/13/24 07/14/24 23:59 23:59 23:59 23:59 Weight 385 lb Constitutional: Present severe distress Head: Present normocephalic and atraumatic ENT: Present normal exam, normal oropharynx and mucous membranes moist Neck: Present normal inspection and full ROM Respiratory: Present respiratory distress, diminished air movement and able to speak in complete sentences; Absent prolonged expiratory phase or wheezes Cardiac: Present S1/S2, Tachycardia and radial pulses present GI: Present soft and distention; Absent tenderness or guarding Rectal (female): Present deferred (female): Present deferred Skin: Present intact and rash; Absent cyanosis or jaundice Neuro: Present alert, awake and oriented x 3 Extremities: Present normal inspection and edema; Absent clubbing or cyanosis Psychiatric: Present normal affect and cooperative Meds Home Medications and Allergies Home Medications ?Medication ?Instructions ?Recorded ?Confirmed ?Type albuterol sulfate 90 mcg/actuation 2 puffs inhalation Q4HP PRN 01/16/22 07/14/24 History aerosol inhaler shortness of air ropinirole 0.25 mg tablet 0.25 - 0.5 mg PO HS 12/20/23 07/14/24 History spironolactone 25 mg tablet 25 mg PO BID 12/20/23 07/14/24 History celecoxib 200 mg capsule 200 mg PO BID 04/03/24 07/14/24 History sertraline 100 mg tablet 100 mg PO DAILY 04/03/24 07/14/24 History fluticasone fur. 100 mcg-umeclid 1 inh inhalation DAILY #1 ea 07/12/24 10/21/24 Rx 62.5 mcg-vilant 25 mcg inhalat.powder (Trelegy Ellipta) fluticasone propionate 50 2 spray intranasal DAILY 90 days 05/08/24 07/14/24 Rx mcg/actuation nasal #16 grams spray,suspension (Flonase Allergy Relief) bumetanide 2 mg tablet 2 mg PO BID #60 tabs 07/01/24 07/14/24 Rx dapagliflozin propanediol 10 mg 10 mg PO DAILY #30 tabs 07/03/24 07/14/24 Rx tablet (Farxiga) doxycycline hyclate 100 mg capsule 100 mg PO BID 07/14/24 07/14/24 History New Prescriptions to Start Prescriptions: Allergies Allergy/AdvReac Type Severity Reaction Status Date / Time amoxicillin Allergy Unknown Verified 07/01/24 14:45 Results Laboratory Findings 07/14/24 07:23 07/14/24 07:23 PT/INR, D-dimer D-Dimer 0.59 ug/mL (0.0-0.5) H 07/14/24 07:23 Abnormal lab findings: Abnormal Labs 07/14/24 07/14/24 07/14/24 07:18 07:23 08:30 D-Dimer 0.59 H VBG pH 7.30 L VBG pCO2 59.4 H 76.2 H VBG pO2 46.5 H 43.4 H VBG HCO3 32.4 H 36.3 H VBG Total CO2 34.3 H 38.7 H VBG O2 Saturation 83.9 H 78.1 H VBG Base Excess 6.9 H 9.8 H Carbon Dioxide 39 H Anion Gap 4.2 L Globulin 3.6 H Assessment and Plan *Assessment and plan (1) Acute and chronic respiratory failure with hypercapnia: Status: Acute Category: Medical Code(s): J96.22 - Acute and chronic respiratory failure with hypercapnia (2) Pulmonary emphysema: Status: Acute Category: Medical Code(s): J43.9 - Emphysema, unspecified (3) NIKKI (obstructive sleep apnea): Status: Acute Category: Medical Code(s): G47.33 - Obstructive sleep apnea (adult) (pediatric) Plan Ms. Reich is a 53-year-old female smoker greater than 98-ycfp-tigu smoking history. Pulmonary emphysema asthma history currently on triple inhaler therapy last seen in the hospital March 2024 with worsening respiratory distress discharged home on prednisone presented to the ER with worsening respiratory distress and pulmonary was called for further evaluation and management. Denies any sick contacts but denies any worsening cough/productive phlegm/worsening wheezing. Patient had a polysomnography testing on 07/03/24 showed severe sleep apnea with AHI of 82.6, titration study performed with recommendations of BiPAP therapy at with oxygen supplementation at 4 L. Chest x-ray upon admission no dense consolidative airspace changes noted. Concerning findings for volume overload. Afebrile. Hemodynamically stable. No evidence of leukocytosis. Blood gas upon admission showed chronic hypercarbic respiratory failure, slightly worsening now on BiPAP therapy. Blood gas 2 hours post noninvasive ventilator therapy showed improvement consistent with chronic hypercarbic respiratory failure, BiPAP eventually discontinued. Currently receiving nebulization therapies. Plan: Continue nasal oxygen supplementation to maintain O2 sat goal of 90% and above Continue Trelegy 100 inhaler along with DuoNebs 4 times daily as needed Continue BiPAP therapy at night for her severe sleep apnea at with 4 L nasal cannula oxygen supplementation No need for steroids or antibiotics at this point of time Volume optimization as per primary team. Chest x-ray concerning for congestion/volume overload. # Thank you for involving pulmonary in this patient care. Will continue to follow.
--- NOTE | 2024-07-14 09:55 | PC.NURSE ---
arrived by stretcher from ED
[2024-07-14] MEDS: ENOXAPARIN 60MG/0.6ML SYRINGE 60 MG SQ ×2 (10:38→20:18)
[2024-07-14 10:44] LABS: Lactate Venous 1.3 mmol/L (0.4-2.0); VBG Base Excess 7.1 mmol/L (-2.4-2.3); VBG HCO3 32.5 mmol/L (23-30); VBG Oxygen Saturation 94.8 % (50-70); VBG PH 7.36 mmol/L (7.31-7.41); VBG PO2 71.5 mmol/L (28-40); VBG Total CO2 34.3 mmol/L (23-27)
[2024-07-14 10:45] LABS: VBG PCO2 58.6 mmol/L (35-51)
[2024-07-14 11:41] LABS: Troponin I < 0.01 ng/ml (0.00-0.034)
[2024-07-14 13:52] LABS: Troponin I < 0.01 ng/ml (0.00-0.034)
[2024-07-14] MEDS: FLUTICASONE/UMECLIDIN/VILANTER 100/62.5/25MCG INHALER 1 PUFF IH (14:15)
[2024-07-14] MEDS: BUMETANIDE 1MG/4ML VIAL 2 MG IV (17:07)
--- NOTE | 2024-07-14 17:43 | PC.NURSE ---
PT IS RESTING IN BED. ALERT AND ORIENTED X4. PT'S BIPAP WAS REMOVED AT 1300 THIS SHIFT. PT UNDERSTANDS THAT SHE WILL NEED TO WEAR THE BIPAP THIS EVENING. O2 HAD TO BE TITRATED FROM 2-3 L DUE TO O2 SATURATION MAINTAINING 88-89% WHILE PT WAS SLEEPING. WHEN PT WAS REASSESSED THIS AFTERNOON LUNG SOUNDS HAD SCATTERED WHEEZES/RHONCHI AND CRACKLES (RT BASE). NOTIFIED HOSPITALIST. BUMEX 2 MG IV ONE TIME ORDERED. SWELLING/REDNESS NOTED TO BLE. AMBULATES TO THE BATHROOM STANDBY ASSIST. PT REQUESTED A PURWICK FOR THIS EVENING. VSS. WILL CONTINUE TO MONITOR.
--- NOTE | 2024-07-14 18:13 | EXP.HP ---
History of Present Illness *History of present illness: Edith Reich is a 53-year-old female with a medical history significant for asthma, emphysema (on home O2 2 L at night), suspected sleep apnea, HFpEF, obesity who presents with worsening somnolence over the past 2 days. Patient states she traveled to [place] with family this weekend, however was a lot more somnolent than normal. On her car ride back home, patient was sleeping throughout. This morning, boyfriend noticed patient did not wake up normally, very somnolent, confused he called EMS. On arrival, patient was waxing and waning in mentation, somnolent. Initial VBG showed chronic hypercarbia, but on reevaluation with patient more somnolent VBG pH 7.3, pCO2 76.2. She was given breathing treatments, steroids, and placed on BiPAP. Case was discussed with ED provider and decision was made to admit patient for acute on chronic hypercarbic respiratory failure secondary to suspected sleep apnea, asthma exacerbation. [facility] Disclaimer: The information contained in this section may have been updated after the patient was seen, as this information can be updated by other users. 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 Chronic pain of left heel Achilles tendinitis of left lower extremity Atypical angina Pulmonary hypertension Sphincter of Oddi dysfunction Acute respiratory failure with hypoxia COPD exacerbation Depression Arthritis Congestive heart failure Cholecystectomy planned Chronic cough Asthma Gallbladder disease Allergies Daytime somnolence Restless sleeper Snoring Weight gain Morbid obesity HTN (hypertension) Dizziness Syncope Surgical History S/P left knee arthroscopy Status post arthroscopic knee surgery H/O arthroscopic knee surgery Hx of cardiac cath Hx of tubal ligation History of endometrial ablation Family History Mother Blood disorder Mother Diabetes Social History (Updated 07/14/24 @ 09:29 by Tia Saba RN) Smoking Status: Current every day smoker tobacco type: cigarettes packs per day: 1 years smoked: 30 second hand exposure: Yes alcohol intake: never substance use type: denies use current occupational status: employed Travel in the last 8 weeks: None household members: spouse housing: house 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 Other Medical History Have you received the Flu Vaccine for this season: Yes Have you received the Pneumonia Vaccine: Yes Meds Home Medications and Allergies Home Medications ?Medication ?Instructions ?Recorded ?Confirmed ?Type albuterol sulfate 90 mcg/actuation 2 puffs inhalation Q4HP PRN 01/16/22 07/14/24 History aerosol inhaler shortness of air ropinirole 0.25 mg tablet 0.25 - 0.5 mg PO HS 12/20/23 07/14/24 History spironolactone 25 mg tablet 25 mg PO BID 12/20/23 07/14/24 History celecoxib 200 mg capsule 200 mg PO BID 04/03/24 07/14/24 History sertraline 100 mg tablet 100 mg PO DAILY 04/03/24 07/14/24 History fluticasone fur. 100 mcg-umeclid 1 inh inhalation DAILY #1 ea 04/04/24 07/14/24 Rx 62.5 mcg-vilant 25 mcg inhalat.powder (Trelegy Ellipta) fluticasone propionate 50 2 spray intranasal DAILY 90 days 05/08/24 07/14/24 Rx mcg/actuation nasal #16 grams spray,suspension (Flonase Allergy Relief) bumetanide 2 mg tablet 2 mg PO BID #60 tabs 07/01/24 07/14/24 Rx dapagliflozin propanediol 10 mg 10 mg PO DAILY #30 tabs 07/03/24 07/14/24 Rx tablet (Farxiga) doxycycline hyclate 100 mg capsule 100 mg PO BID 07/14/24 07/14/24 History New Prescriptions to Start Prescriptions: Allergies Allergy/AdvReac Type Severity Reaction Status Date / Time amoxicillin Allergy Unknown Verified 07/01/24 14:45 Exam Data for Last 24 hours Vital signs and Labs for Last 24 Hours: Temp Pulse Resp BP Pulse Ox O2 Del Method O2 Flow Rate 98.2 F 89 24 159/82 H 90 L Nasal Cannula 3 07/14/24 16:00 07/14/24 18:00 07/14/24 18:00 07/14/24 18:00 07/14/24 18:00 07/14/24 18:00 07/14/24 18:00 FiO2 30 07/14/24 09:05 Laboratory Results - last 24 hr 07/14/24 07:18: VBG pH 7.36, VBG pCO2 59.4 H, VBG pO2 46.5 H, VBG HCO3 32.4 H, VBG Total CO2 34.3 H, VBG O2 Saturation 83.9 H, VBG Base Excess 6.9 H, VBG Lactic Acid 1.2 07/14/24 07:23: WBC 7.5, RBC 5.01, Hgb 14.1, Hct 44.1, MCV 88.1, MCH 28.2, MCHC 32.0, RDW 15.8, Plt Count 245, MPV 9.0, Neut % (Auto) 74.4, Lymph % (Auto) 17.6, [place] % (Auto) 5.9, Eos % (Auto) 1.1, Baso % (Auto) 1.0, Neut # (Auto) 5.6, Lymph # (Auto) 1.3, [place] # (Auto) 0.4, Eos # (Auto) 0.1, Baso # (Auto) 0.1, D-Dimer 0.59 H, Sodium 137, Potassium 4.2, Chloride 98, Carbon Dioxide 39 H, Anion Gap 4.2 L, BUN 13, Creatinine 0.70, Estimated Creat Clear 91, Estimated GFR 88, Est GFR ( Amer) 106, Glucose 100, Calcium 8.9, Total Bilirubin 0.8, AST 31, ALT 25, Alkaline Phosphatase 106, Troponin I < 0.01, NT-Pro-B Natriuret Pep 61.0, Total Protein 7.5, Albumin 3.9, Globulin 3.6 H, Albumin/Globulin Ratio 1.1, SARS-CoV-2 (PCR) Not detected, HIV 1&2 Antibody Rapid Nonreactive, Influenza A Untype (PCR) Not detected, Influenza Type B (PCR) Not detected 07/14/24 08:30: VBG pH 7.30 L, VBG pCO2 76.2 H, VBG pO2 43.4 H, VBG HCO3 36.3 H, VBG Total CO2 38.7 H, VBG O2 Saturation 78.1 H, VBG Base Excess 9.8 H, VBG Lactic Acid 1.1 07/14/24 10:30: VBG pH 7.36, VBG pCO2 58.6 H, VBG pO2 71.5 H, VBG HCO3 32.5 H, VBG Total CO2 34.3 H, VBG O2 Saturation 94.8 H, VBG Base Excess 7.1 H, VBG Lactic Acid 1.3 07/14/24 10:33: Troponin I < 0.01 07/14/24 13:19: Troponin I < 0.01 I & O for Last 24 hours: Intake & Output 07/11/24 07/12/24 07/13/24 07/14/24 23:59 23:59 23:59 23:59 Intake Total 270 / 270 Output Total 700 / 700 Balance -430 / -430 Weight 176.051 kg Constitutional Constitutional: no acute distress and obese *Routine HEENT Exam Head: Present normocephalic Eye: Present EOMI and PERRL ENT: Present mucous membranes moist *Routine Neck Exam Neck: Present supple; Absent lymphadenopathy *Routine Respiratory Exam Respiratory: Present wheezes; Absent CTA bilaterally Comments: Faint bilateral wheezing. *Routine Cardiovascular Exam Cardiovascular: Present RRR *Routine Abdominal Exam Abdominal: Present soft and normoactive bowel sounds; Absent tenderness *Routine Rectal Exam Rectal:: deferred *Routine Genitalia Exam Genitalia:: deferred *Routine Extremities Exam Extremities: Absent cyanosis, clubbing or edema Comments: Trace pitting edema. Chronic venous stasis skin changes. *Routine Skin Exam Skin: Present warm; Absent rash *Routine Neurological Exam Neurological: Present alert and oriented X3 Assessment and Plan *Assessment and plan (1) Acute and chronic respiratory failure with hypercapnia: Status: Acute Category: Medical Code(s): J96.22 - Acute and chronic respiratory failure with hypercapnia (2) NIKKI (obstructive sleep apnea): Status: Acute Category: Medical Code(s): G47.33 - Obstructive sleep apnea (adult) (pediatric) (3) History of asthma: Status: Acute Category: Medical Code(s): Z87.09 - Personal history of other diseases of the respiratory system (4) Smoking greater than 30 pack years: Status: Acute Category: Social Hx Code(s): F17.210 - Nicotine dependence, cigarettes, uncomplicated (5) (HFpEF) heart failure with preserved ejection fraction: Status: Acute Category: Medical Code(s): I50.30 - Unspecified diastolic (congestive) heart failure Plan Edith Reich is a 53-year-old female with a medical history significant for asthma, emphysema (on home O2 2 L at night), suspected sleep apnea, HFpEF, obesity who presents with worsening somnolence over the past 2 days. Patient states she traveled to [place] with family this weekend, however was a lot more somnolent than normal. On her car ride back home, patient was sleeping throughout. This morning, boyfriend noticed patient did not wake up normally, very somnolent, confused he called EMS. Of note, patient has recently had sleep study and was actually approved for BiPAP today after admission. On arrival, patient was waxing and waning in mentation, somnolent. Initial VBG showed chronic hypercarbia, but on reevaluation with patient more somnolent VBG pH 7.3, pCO2 76.2. She was given breathing treatments, steroids, and placed on BiPAP. Case was discussed with ED provider and decision was made to admit patient for acute on chronic hypercarbic respiratory failure secondary to suspected sleep apnea, asthma exacerbation. #Acute hypercarbic respiratory failure #Obstructive sleep apnea #Asthma, emphysema ? Longstanding history of intermittent fatigue, daytime somnolence. ? Has had home sleep studies in the past, but most recent study revealed severe NIKKI and patient was approved for BiPAP today. Recommended settings 24/ with O2 supplementation of 4 L. ? Patient does have some mild wheezing bilaterally though this is likely baseline, but stable currently on 2 L nasal cannula. Which is baseline for her. - Asthma, emphysema not in exacerbation at this time. ? CXR did not reveal acute opacities, suggested mild edema. However, BNP normal. ? DuoNebs scheduled and as needed. ? Resumed home Trelegy. ? BiPAP nightly. ? Anticipate discharge tomorrow once BiPAP can be delivered at home. #HFpEF ? Resumed home Bumex 2 mg twice daily, Farxiga 10 mg, spironolactone 25 mg. ? Does not look like exacerbation. Independent review of CXR is more consistent with emphysematous changes rather than pulmonary edema, also seen on previous x-rays. BNP also normal on admission. Full code Lovenox 40 mg
[2024-07-14] MEDS: SPIRONOLACTONE 25MG TABLET 25 MG PO (20:19)
[2024-07-14] MEDS: ROPINIROLE HCL 0.25 MG TABLET PO (20:19)
[2024-07-14] MEDS: ACETAMINOPHEN 325MG TAB 650 MG PO (20:41)
[2024-07-15] VITALS (8 sets, daily range): BP systolic 120–145; BP diastolic 52–74; PULSE 84–100; RESP 18–21; TEMP 36.7–37; O2SAT 90–94; BMI 61.0
[2024-07-15] MEDS: ACETAMINOPHEN 325MG TAB 650 MG PO ×2 (03:46→08:24)
--- NOTE | 2024-07-15 04:25 | PC.NURSE ---
No acute changes throughout shift. Patient tolerated 3L/NC prior to being on her BiPAP: 24/10, RR18, FiO2 40% up from 30% r/t saturations 87%-88%Patient had a 1.5 hour break from BiPAP for PO fluids and to urinate. She remains steady walking to the restroom from her bed with minimal shortness of air not off from her baseline. Adequate urinary output. Patient's lung corcoran remain mostly clear and diminished with few crackles heard to the right lower lobe. VSS, NAD otherwise. Step down care continued.
[2024-07-15 05:25] LABS: Basophils % 0.4 % (0.1-2.0); Eosinophils % 0.2 % (0.1-12.0); Hematocrit 42.8 % (37.0-47.0); Hemoglobin 13.6 g/dL (12.2-16.2); Lymphocytes # 1.5 K/mm3 (0.7-4.5); Lymphocytes % 15.4 % (10-50); Mean Corpuscular HGB Conc 31.8 g/dL (31.8-35.4); Mean Corpuscular Hemoglobin 28.2 pg (27.0-31.2); Mean Corpuscular Volume 88.6 fl (81-99); Mean Platelet Volume 8.9 fl (7.4-10.4); Monocytes # 0.7 K/mm3 (0.1-1.0); Monocytes % 7.3 % (1.7-9.3); Neutrophils # 7.7 K/mm3 (1.8-7.8); Neutrophils % 76.7 % (37.0-80.0); Platelet Count 245 K/mm3 (142-424); Red Blood Count 4.83 M/mm3 (4.20-5.40); Red Cell Distribution Width 15.9 % (11.5-17.5)
[2024-07-15 05:35] LABS: Alanine Aminotransferase 22 U/L (12-78); Albumin Level 3.7 g/dl (3.5-5.0); Albumin/Globulin Ratio 1.1 (1.1-1.8); Alkaline Phosphatase 93 U/L (38-126); Aspartate Amino Transferase 27 U/L (14-36); Bilirubin,Total 0.6 mg/dl (0.2-1.3); Blood Urea Nitrogen 19 mg/dl (7-17); Calcium 8.9 mg/dl (8.4-10.2); Chloride 95 mmol/L (98-107); Creatinine Clearance Estimated 88 mL/min (50-200); Estimated Glomerular Filt Rate 88 ml/min (>60); GFR (African American) 106 ML/MIN (>60); Globulin 3.4 g/dL (1.3-3.2); Glucose 118 mg/dl (74-100); Sodium 133 mmol/L (136-145); Total Protein,Serum 7.1 g/dl (6.3-8.2)
[2024-07-15 05:42] LABS: Carbon Dioxide 35 mmol/L (22.0-30.0)
[2024-07-15 05:51] LABS: Anion Gap 7.3 mEq/L (5-15); Potassium 4.3 mmoL/L (3.5-5.1)
[2024-07-15] MEDS: FLUTICASONE/UMECLIDIN/VILANTER 100/62.5/25MCG INHALER 1 PUFF IH (06:11)
--- OUTSIDE RECORDS SUMMARY | 2024-07-15 08:11 | XMS_ITS ---
Author Organization [facility] PE D [facility] Address [address] [facility] [address] [place] [address] Care Team Providers Care Director Compliance Name Role Phone Terra Lebron Primary Care Provider [phone] TERRA LEBRON Unavailable Unavaila ble REASON FOR VISIT New Refill Request Medications Medication SIG (Take, Route, Fr equency, Duration) Notes Start Date End Date Status Plaquenil 200 mg 1 tab(s) orally once a day for 30 days Active Encounters Encounter Location Date Provider Diagnosis [facility] [address] [place] [address] 07/12/2024 Terra Lebron Plan Of Treatment Medication Medication Name Sig Start Date Stop Date Notes Plaquenil 200 mg 1 tab(s) orally once a day for 30 days Next Appt Details Provider Name:Terra Redman ce, 07/28/2024 02:45:00 PM, [address], [address], [place], [address], Progress Notes * Edith REICHDOB:[birth year] (53 yo F)Acc No.[id number]:07/12/2024 Patient:?SYED Edith :1970???Age:53 Y???Sex:Female Address:[address] [place], [address] * Refills? Refill Plaquenil tablet, 200 mg, orally, 30 Tablet, 1 tab(s), once a day, 30 days, Refills=0 * true * Date:? Generated for Pao quezada/Kristen/Daphne on:?07/15/2024 08:11 AM EDT
--- OUTSIDE RECORDS SUMMARY | 2024-07-15 08:12 | XMS_ITS ---
Author Organization [facility] D [facility] Address [address] [facility] [address] [facility] [address] [place] [address] Care Team Providers Care Oil Heater Installer Name Role Phone Trera Lebron Primary Care Provider TERRA LEBRON Unavailable Unavaila ble Medications Medication SIG (Take, Route, Frequency, Duration) Notes Start Date End Date Status doxycycline hyclate 100 mg 1 cap(s) oral ly 2 times a day for 10 days 06/03/2024 Active Promethazine DM 15 mg-6.25 mg/5 mL 5 mL orally every 6 hours as needed for cough for 7 days 06/03/2024 Active predniSONE 20 mg 2 tabs orally once a day for 5 days 06/03/2024 Active Encounters Encounter Location Date Provider Diagnosis [facility] [address] [facility] [address] [place] [address] 06/03/2024 Terra Lebron Plan Of Treatment Medication Medication Name Sig Start Date Stop Date Notes doxycycline hyclate 100 mg 1 cap(s) oral ly 2 times a day for 10 days 06/03/2024 Promethazine DM 15 mg-6.25 m g/5 mL 5 mL orally every 6 hours as needed for cough for 7 days 06/03/2024 predniSONE 20 mg 2 tabs orally once a day for 5 days 06/03/2024 Next Appt Details Provider Name:Terra merida, 07/28/2024 02:45:00 PM, [address] [facility] [address] [facility], [address], [place], [address], Progress Notes * Edith REICHDOB:[birth year] (53 yo F)Acc No.[id number]:06/03/2024 Patient:?Edith REICH :1970???Age:53 Y???Sex:Female Address:[address] [place] [address] , [place], [address] * Refills? Start predniSONE tablet, 20 mg, orally, 10 Tablet, 2 tabs, once a day, 5 days, Refills=0 Start Promethazine DM syrup, 15 mg-6.25 mg/5 mL, orally, 140 ml, 5 mL, every 6 hours as needed for cough, 7 days, Refills=0 Start doxycycline capsule, hyclate 100 mg, orally, 20, 1 cap(s), 2 times a day, 10 days, Refills=0 * true * Date:? Generated for Pao quezada/Kristen/Kaitlinsmitting on:?07/15/2024 08:11 AM EDT
--- OUTSIDE RECORDS SUMMARY | 2024-07-15 08:12 | XMS_ITS ---
Author Organization [facility] PE D [facility] Address [address] [facility] [address] [place] [address] Care Team Providers Care Hand Spring Former Name Role Phone Terra Lebron Primary Care Provider TERRA LEBRON Unavailable Unavaila ble Allergies Allergen (clinical drug ingredient) Drug/Non Drug Allergy documented on EMR Reaction Allergy Type Onset Date Status amoxicillin amoxicillin soa and hives Drug Allergy Active REASON FOR VISIT Cellulitis, needs Rx sent to [facility] for a nebulizer Medications Medication SIG (Take, Route, Frequency, Duration) Notes Start Date End Date Status Wellbutrin XL 150 mg/24 hours 1 tab(s) orally every 24 hours for 30 days 07/07/2024 Active doxycycline hyclate 100 mg 1 cap(s) oral ly 2 times a day for 10 days 07/07/2024 Active sertraline 100 mg 1 tab(s) orally once a day for 30 day(s) Active celecoxib 200 mg 1 cap(s) orally 2 ti mes a day for 90 days Active spironolactone 25 mg 1 tab(s) orally twi ce a day for 90 days Active Ventolin HFA 90 mcg/inh 2 puff(s) inhale d every 6 hours for 30 days Active Trelegy Ellipta 100 mcg-62.5 mcg-25 mcg/inh 1 puff(s) inhaled once a day for 30 days Active rOPINIRole 0.25 mg 1-2 tabs orally at n ight for RLS for 90 days Active Protonix 20 mg 1 tab(s) orally once a day Active albuterol-ipratropium 2.5 mg-0.5 mg/3 mL 3 mL by nebulizer 4 times a day as needed for wheezing for 30 days prn Active lisinopril 10 mg 1 tab(s) orally once a day Active bumetanide 2 mg 1 tab(s) orally twic e a day Active Farxiga 10 mg 1 tab(s) orally once a day Active Plaquenil 200 mg 1 tab(s) orally once a day Active Social History Tobacco Use: Social History Observation Description Date Details (start date - stop date) Current Smoker NA - NA Smoking: Question Answer Notes Are you a: current smoker How often do you smoke cigarettes? every day How many cigarettes a day do you smoke? 6-10 How soon after you wake up d o you smoke your first cigarette? 6-30 min Are you interested in quitting? Thinking about q uitting Additional Findings: Tobacco User Light cigarett e smoker ((1-9 cigs/day) Problems Problem Type SNOMED Code ICD Code Onset Dates Problem Status W/U Status Risk Notes Problem 028735643 Lymphedema (I89.0) Active confirmed Problem 83942025 Moderate episode of recurrent major depressive disorder (F33.1) Active confirmed Vital Signs Temperature 97.8 degrees Fahrenheit 07/07/20 24 Oximetry 92 07/07/2024 Heart Rate 104 /min 07/07/2024 Blood pressure systolic 112 mm Hg 07/07/20 24 Blood pressure diastolic 86 lt lower forearm mm Hg 07/07/2024 Height 5 ft 6 in in 07/07/2024 Weight 396.6 lbs 07/07/2024 BMI 64.01 kg/m2 07/07/2024 Encounters Encounter Location Date Provider Diagnosis [facility] [address] [place] [address] 07/07/2024 Terra Lebron Lymphedema I89.0 ; Cellulitis of left lower leg L03.116 and Moderate episode of recurrent major depressive disorder F33.1 Assessments Encounter Date Diagnosis (ICD Code) Assessment Notes Treatment Notes Treatment Clinical Notes 07/07/2024 Lymphedema (ICD-10 - I89.0) 07/07/2024 Cellulitis of left lower leg (ICD-10 - L03.116) 07/07/2024 Moderate episode of recurrent major depressive disorder (ICD-10 - F33.1) Continue zoloft but add wellbutrin daily as noted, close FU encouraged and possible s/e reviewed Plan Of Treatment Medication Medication Name Sig Start Date Stop Date Notes Wellbutrin XL 150 mg/24 hours 1 tab(s) o rally every 24 hours for 30 days 07/07/2024 doxycycline hyclate 100 mg 1 cap(s) oral ly 2 times a day for 10 days 07/07/2024 Pending Test Test Name Order Date Physical Therapy : Lymphedema 07/07/2024 Next Appt Details Follow Up: 4 Weeks,prn, Reas on: Provider Name:Terra Redman ce, 07/28/2024 02:45:00 PM, [address], [address], [place], [address], Progress Notes * Edith REICHDOB:[birth year] (53 yo F)Acc No.[id number]:07/07/2024 Progress Notes Patient:?SYED Edith Provider:?KAREN Gutierrez :1970???Age:53 Y???Sex:Female D ate:07/07/2024 Address:[address] [place] [address] , [place], [id number] Subjective: * Chief Complaints: * ???1. Cellulitis. 2. needs R x sent to [facility] for a nebulizer. * HPI: ???gen:? 53 yr old female presents today with c/o cellulitis left lower extremity. Chronic, recurring edema and more recently with erythema and warmth in the left lower leg. No weeping or open lesions. She is following routinely with cardiology and had a?sleep study last week, results pending. Taking diuretics routinely. Worse when on feet for long periods of time at work, improves marginally with elevation.? Cardiology is attempting to get Wegovy approved to assist with weight loss and also discussed establishing with bariatric surgery clinic to discuss options Depression has been much worse since her mother's almost 2 years ago and weight has continued to climb. * ROS:?RESPIRATORY:?Shortness of breath?yes.?Cough?yes.?CARDIOLOGY:?See HPI?Yes.?no?Chest pain.?CONSTITUTIONAL:?no?Loss of appetite.?no?Fever.?no?Weakness.?Fatigue? yes.?DERMATOLOGY:?no?Rash.?GASTROENTEROLOGY:?Reviewed, No Symptoms Reported:?Yes.?PSYCHOLOGY:?Depression?yes.?High stress level? yes.?UROLOGY:?no?Difficulty urinating.? * Medical History:?Depression, Arthritis, Asthma, Lupus - arthiritis center in [facility] (Dr. Bateman), Edema/CHF, Tobacco use. * Social History:?Smoking?Are you a:?current smoker,?How often do you smoke cigarettes??every day,?How many cigarettes a day do you smoke??6-10,?How soon after you wake up do you smoke your first cigarette??6-30 min,?Are you interested in quitting??Thinking about quitting,?Additional Findings: Tobacco User?Light cigarette smoker ((1-9 cigs/day). Recreational drug use: no. Exercise: no. Home smoke detector use: yes. Caffeine: yes, frequency:Diet Mt Dew. Living Will: No. Alcohol: socially, Type: , Frequency: ,Years: , Determination:. Travel outside [place]: no. 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 * Medications:?Taking bumetani de 2 mg tablet 1 tab(s) orally twice a day , Taking Farxiga 10 mg tablet 1 tab(s) orally once a day , Taking Plaquenil 200 mg tablet 1 tab(s) orally once a day , Taking lisinopril 10 mg tablet 1 tab(s) orally once a day , Taking Protonix 20 mg delayed release tablet 1 tab(s) orally once a day , Taking albuterol-ipratropium 2.5 mg-0.5 mg/3 mL solution 3 mL by nebulizer 4 times a day as needed for wheezing , Notes to Pharmacist: prn, Taking rOPINIRole 0.25 mg tablet 1-2 tabs orally at night for RLS , Taking Trelegy Ellipta 100 mcg-62.5 mcg-25 mcg/inh powder 1 puff(s) inhaled once a day , Taking spironolactone 25 mg tablet 1 tab(s) orally twice a day , Taking Ventolin HFA 90 mcg/inh aerosol 2 puff(s) inhaled every 6 hours , Taking celecoxib 200 mg capsule 1 cap(s) orally 2 times a day , Taking sertraline 100 mg tablet 1 tab(s) orally once a day , Discontinued Lasix 40 mg tablet 1 tab(s) orally twice a day , Discontinued predniSONE 20 mg tablet 2 tabs orally once a day , Discontinued Promethazine DM 15 mg-6.25 mg/5 mL syrup 5 mL orally every 6 hours as needed for cough , Discontinued doxycycline hyclate 100 mg capsule 1 cap(s) orally 2 times a day , Medication List reviewed and reconciled with the patient * Allergies:?amoxicillin: soa and hives - Allergy. Objective: * Vitals:?Nurse: hanh, Pain: 5-r thritis, Temp: 97.8, Pulse O2: 92, RR: 24, HR: 104, BP: 112/86 lt lower forearm, Ht: 5 ft 6 in, Wt: 396.6, BMI:64.01. * Examination: ???General Examination: ?General?Pleasant and Cooperative, NAD on RA, obese.?Oral cavity:?Moist membranes.?Heart:?Regular Rate and Rhythm, no murmur, rubs or gallops.?Lungs:?clear to auscultation,, decreased air entry at bases,.?Abdomen:?soft, NT/ND, BS present.?Neurologic Exam:?Alert and oriented x 3.?Extremities:?no clubbing, brawny skin and dimpling of lower extremities with erythema and warmth left lower leg.? Assessment: * Assessment: 1.?Lymphedema - I89.0 (Prima ry)???2.?Cellulitis of left lower leg - L03.116???3.?Moderate episode of recurrent major depressive disorder - F33.1??? Plan: * Treatment: 2.?Cellulitis of left lower leg? Start doxycycline capsule, hyclate 100 mg, 1 cap(s), orally, 2 times a day, 10 days, 20, Refills 0. ?3.?Moderate episode of recurrent major depressive disorder? Start Wellbutrin XL tablet, extended release, 150 mg/24 hours, 1 tab(s), orally, every 24 hours, 30days, 30, Refills 1.?? Clinical Notes: Continue zoloft but add wellbutrin daily as noted, close FU encouraged and possibles/e reviewed?? * Follow Up:?4 Weeks,prn * * Sign off status: Completed true * Provider:?KAREN Gutierrez Date:? 07/07/2024 Generated for Pao quezada/Kristen/eTransmitting on:?07/15/2024 08:11 AM EDT History and Physical Notes * Examination Category Sub-Category Detail Notes General Examination Heart: Regular Rate and Rhythm, no murmur, rubs or gallops Lungs: clear to auscultatio n,, decreased air entry at bases, Abdomen: soft, NT/ND, BS pres ent Extremities: no clubbing, brawny skin and dimpling of lower extremities with erythema and warmth left lower leg Neurologic Exam: Alert and oriented x 3 Oral cavity: Moist membranes General Pleasant and Coopera tive, NAD on RA, obese
--- OUTSIDE RECORDS SUMMARY | 2024-07-15 08:12 | XMS_ITS | Patient Health Record ---
Author Organization [facility] Address [address] [place] [address] Care Team Providers Care Gallery Intern Name Role Phone Madhavi Lebron Primary Care Provider MADHAVI LEBRON Unavailable Unavaila Gilmer De Leon Unavailable [phone] Allergies Allergen (clinical drug ingredient) Drug/Non Drug Allergy documented on EMR Reaction Allergy Type Onset Date Status amoxicillin amoxicillin soa and hives Drug Allergy Active Results Component Value Reference Range Notes M-Hemoglobin A1C Reviewed date:12/20/2023 05:36:01 PM Interpretation: Performing Lab: Notes/Report: HGBA1C 6.2 4.0-6.0 % < 6% Non-Diabetic Level < 7% Controlled Diabetic Level > 8% Poorly Controlled Diabetic Level M-Lipid Panel Reviewed date:12/09/2023 02:15:23 PM Interpretation: Performing Lab: Notes/Report: Patient Fasting? N TRIG 71 30-150 mg/dl CHOL 183 140-200 mg/dl DLDL 95.83 100-129 mg/dL VLDL 14 0-40 mg/dL HDL 48 40-60 mg/dl CHLHDL 3.8 1-3.5 M-Thyroid Stimulating Hormon e Reviewed date:12/09/2023 02:15:13 PM Interpretation: Performing Lab: Notes/Report: TSH 1.73 0.465-4.68 uIU/mL M-1,25-Dihydroxy,Vitamin D b y MS Reviewed date:12/18/2023 08:20:02 AM Interpretation: Performing Lab: Notes/Report: [id number] 40 . pg/mL Reference Range: Adults: 21 - 65 [id number] <10 . pg/mL This test was developed and its performance characteristics determined by [facility]. It has not been cleared or approved by the Food and Drug Administration. [id number] 36 . pg/mL This test was developed and its performance characteristics determined by [facility]. It has not been cleared or approved by the Food and Drug Administration. Performed at: [facility] [address] [place] [id number] Clinic Receptionist: Rancho Fernandez MD, Phone: [phone] Reviewed date:12/07/2023 08:11:59 PM Interpretation: Performing Lab: Notes/Report: [id number] 537 239-931 pg/mL Reason For Referral Reason Home Sleep Study- La st one was inconclusive Diagnosis 1 Unspecified diastoli c heart failure (I50.30) Diagnosis 2 Mild intermittent as thma with exacerbation (J45.21) Diagnosis 3 Obesity (E66.9) Diagnosis 4 Loud snoring (R06.83 ) Referral Organization [facility] IAN VANEGAS Referring Provider First Name Madhavi Referring Provider Last Name Vi Referring Provider [facility] ctice General Notes Lorna Szymanski 2022 10:40:21 AM >Patient referral sent to Irma Ruth at [facility] for home sleep study Referral Priority Routine Reason Home sleep study Diagnosis 1 Daytime somnolence ( R40.0) Referral Organization [facility] IAN VANEGAS Referring Provider First Name Madhavi Referring Provider Last Name Vi Referring Provider [facility] ctice General Notes Lorna Szymanski 2023 04:04:32 PM >Sent to Stephon Jacobs Nickie 01/31/2024 04:59:05 PM >MB has tried many times to contact her. Referral Priority Routine Reason In Hospital Sleep st udy Diagnosis 1 Daytime somnolence ( R40.0) Referral Organization [facility] IAN VANEGAS Referring Provider First Name Madhavi Referring Provider Last Name Vi Referring Provider [facility] ctice Referred Organization [facility] Referred Address [address] [facility] [address] [facility], [place], [place],[address], General Notes Lorna Szymanski 2023 02:36:55 PM >Referral sent to ArleneStephon Nickie 04/21/2024 04:08:26 PM >Irma Ruth said pending. They will start inhouse again in April. She will be called in at that time. Referral Priority Routine Medications Medication SIG (Take, Route, Frequency, Duration) Notes Start Date End Date Status Trelegy Ellipta 100 mcg-62.5 mcg-25 mcg/inh 1 puff(s) inhaled once a day for 30 days Active rOPINIRole 0.25 mg 1-2 tabs orally at n ight for RLS for 90 days Active Wellbutrin XL 150 mg/24 hours 1 tab(s) orally every 24 hours for 30 days 07/07/2024 Active bumetanide 2 mg 1 tab(s) orally twic e a day Active Farxiga 10 mg 1 tab(s) orally once a day Active spironolactone 25 mg 1 tab(s) orally twi ce a day for 90 days Active doxycycline hyclate 100 mg 1 cap(s) oral ly 2 times a day for 10 days 07/07/2024 Active Ventolin HFA 90 mcg/inh 2 puff(s) inhale d every 6 hours for 30 days Active Protonix 20 mg 1 tab(s) orally once a day Active sertraline 100 mg 1 tab(s) orally once a day for 30 day(s) Active albuterol-ipratropium 2.5 mg-0.5 mg/3 mL 3 mL by nebulizer 4 times a day as needed for wheezing for 30 days prn Active lisinopril 10 mg 1 tab(s) orally once a day Active celecoxib 200 mg 1 cap(s) orally 2 ti mes a day for 90 days Active Plaquenil 200 mg 1 tab(s) orally once a day for 30 days Active Social History Tobacco Use: Social History [...] Problem Status W/U Status Risk Notes Problem Obesity (703692100) Obesity (E66.9) Active confirmed Problem 993608468 Lymphedema (I89.0) Active confirmed Problem 759353862 BMI 50.0-59.9, adult (Z68.43) Active confirmed Problem 997600945 Mild intermitten t asthma with exacerbation (J45.21) Active confirmed Problem 99298190 Moderate episode of recurrent major depressive disorder (F33.1) Active confirmed Problem 225478613989 Daytime somnolence (R40.0) Active confirmed Problem 352687036 SLE (systemic lupus erythematosus related syndrome) (M32.9) Active confirmed Problem 73088200 Acute allergic rhinitis (J30.9) Active confirmed Problem 447531079 Unspecified diastolic heart failure (I50.30) Active confirmed Problem 778897 Moderate major depression (F32.1) Active confirmed Vital Signs Heart Rate 104 /min 07/07/2024 Temperature 97.8 degrees Fahrenheit 07/07/2024 Oximetry 92 07/07/2024 Blood pressure diastolic 86 lt lower forearm mm Hg Height 5 ft 6 in in 07/07/2024 Blood pressure systolic 112 mm Hg 07/07/2024 Weight 396.6 lbs 07/07/2024 BMI 64.01 kg/m2 07/07/2024 Encounters Encounter Location Date Provider Diagnosis [facility] [address] [place], [employer] [address] 2023 Madhavi Lebron Bronchitis J40 ; Wheezing R06.2 and Mild intermittent asthma with exacerbation J45.21 [facility] [address] [facility] [address] [place], [employer] [address] 12/06/2023 Madhavi Lebron Obesity E66.9 ; Left anterior knee pain M25.562 ; Moderate major depression F32.1 ; Malaise R53.81 ; Daytime somnolence R40.0 and Routine medical exam Z00.00 [facility] [address] [facility] [address] [place], [employer] [address] 04/10/2024 Madhavi Lebron Acute respiratory failure with hypoxia J96.01 ; SOB (shortness of breath) R06.02 ; Unspecified diastolic heart failure I50.30 ; SLE (systemic lupus erythematosus related syndrome) M32.9 ; BMI 50.0-59.9, adult Z68.43 ; Mild intermittent asthma with exacerbation J45.21 ; Daytime somnolence R40.0 and Hospital discharge follow-up Z09 [facility] [address] [place] [address] 07/07/2024 Madhavi Vi Lymphedema I89.0 ; Cellulitis of left lower leg L03.116 and Moderate episode of recurrent major depressive disorder F33.1 [facility] [address] [place] [address] 2023 Madhavi Vi [facility] [address] [place] [address] 09/11/2023 Madhavi Vi Wheezing R06.2 and Bronchitis J40 [facility] [address] [place] [address] 11/21/2023 Madhavi Vi [facility] [address] [place] [address] 12/06/2023 Madhavi Iv [facility] [address] [place] [address] 12/06/2023 Madhavi Vi [facility] [address] [place] [address] 12/20/2023 Madhavi Vi [facility] [address] [place] [address] 03/25/2024 Madhavi Vi [facility] [address] [place] [address] 04/30/2024 Madhavi Vi [facility] [address] [place] [address] 05/06/2024 Madhavi Vi [facility] [address] [place] [address] 06/03/2024 Madhavi Vi [facility] [address] [place] [address] 07/12/2024 Madhavi Vi Assessments Encounter Date Diagnosis (ICD Code) Assessment Notes Treatment Notes Treatment Clinical Notes 2023 Wheezing (ICD-10 - R06.2) 2023 Bronchitis (ICD-10 - J40) 09/11/2023 Wheezing (ICD-10 - R06.2) 12/06/2023 Obesity (ICD-10 - E66.9) complicates all aspects of care, hopefully wellbutrin will be helpful to prevent additional weight gain 12/06/2023 Left anterior knee pain (ICD-10 - M25.562) has orders for xrays and consult again with Dr Dc next week, rec JENNY until then 04/10/2024 Acute respiratory failure with hypoxia (ICD-10 - J96.01) No medication changes were made today, she will continue supplemental oxygen to keep her specialty follow-up next week. Weight loss is imperative, she will discuss possible coverage of Wegovy with cardiology next week since it has a new indication regarding cardiovascular risk reduction. Previously her insurance would not cover it simply for weight loss. High risk for sleep apnea, recommend in lab sleep study given her known hypoxia and chronic cardiopulmonary disease. 04/10/2024 SOB (shortness of breath) (ICD-10 - R06.02) 07/07/2024 Lymphedema (ICD-10 - I89.0) 07/07/2024 Cellulitis of left lower leg (ICD-10 - L03.116) 07/07/2024 Moderate episode of recurrent major depressive disorder (ICD-10 - F33.1) Continue zoloft but add wellbutrin daily as noted, close FU encouraged and possible s/e reviewed 04/10/2024 Unspecified diastolic heart failure (ICD-10 - I50.30) 12/06/2023 Moderate major depression (ICD-10 - F32.1) start wellbutrin daily as noted, possible s/e, risks and benefits reviewed. Can start weaning sertraline in 2 weeks as discussed 09/11/2023 Bronchitis (ICD-10 - J40) 2023 Mild intermittent asthma with exacerbation (ICD-10 - J45.21) will order new nebulizer, continue treatments TID and PRN during acute illness 12/06/2023 Malaise (ICD-10 - R53.81) repeat home sleep study, high risk for significant NIKKI 04/10/2024 SLE (systemic lupus erythematosus related syndrome) (ICD-10 - M32.9) 04/10/2024 BMI 50.0-59.9, adult (ICD-10 - Z68.43) 12/06/2023 Daytime somnolence (ICD-10 - R40.0) 12/06/2023 Routine medical exam (ICD-10 - Z00.00) 04/10/2024 Mild intermittent asthma with exacerbation (ICD-10 - J45.21) 04/10/2024 Daytime somnolence (ICD-10 - R40.0) 04/10/2024 Hospital discharge follow-up (ICD-10 - Z09) 04/10/2024 Other in lab sleep study Plan Of Treatment Pending Test Test Name Order Date Physical Therapy : Lymphedema 07/07/2024 M-Complete Blood Count Auto Diff 024 M-Comprehensive Metabolic Panel 12/06/19 24 M-Vitamin B12 12/06/2023 M-Vitamin D 25 Hydroxy 12/06/2023 CT Scan : Chest, Lung Cancer Screening 0 12/04/2022 Next Appt Details Provider Name:Madhavi Redman ce, 07/28/2024 02:45:00 PM, [address], [place], [address], Insurance Providers Payer Name Payer Address Payer Phone Subscriber Number Group Number Insured Name Patient Relationship to Insured Coverage Start Date Coverage End Date [facility] [address] [place] [address] [phone] [id number] Edith Ortiz Self - patient is the insured Medications Administered Medication Instructions Date of Administration Dosage Notes Dexamethasone 4mg Injection 12/18/2022 4 mg Medical (General) History Medical History History ICD Code Depression Arthritis Asthma Lupus - [facility] (Dr. Tejinder yap) Edema/CHF Tobacco use Surgical History Surgery Date(Month/Year) Heart Cath 01/2022 Vaginal Ablation 12/2021 Tubal ligation 1992 Hospitalization History Reason Date(Month/Year) Low 02 states 03/2024 Childbirth x 2 1992 Heart Cath 01/2022
[2024-07-15] MEDS: ENOXAPARIN 60MG/0.6ML SYRINGE 60 MG SQ (08:25)
[2024-07-15] MEDS: BUMETANIDE 1 MG TABLET 2 MG PO (08:26)
[2024-07-15] MEDS: SPIRONOLACTONE 25MG TABLET 25 MG PO (08:27)
[2024-07-15] MEDS: DAPAGLIFLOZIN PROPANEDIOL 10 MG TABLET PO (08:27)
[2024-07-15] MEDS: SERTRALINE 100MG TABLET 100 MG PO (08:27)
[2024-07-15 09:29] LABS: HCV Ab Non Reactive (Non Reactive)
--- NOTE | 2024-07-15 09:37 | EXP.PULM.PN ---
Subjective *Date: 07/15/24 *Time: 10:23 Interval history: No acute respiratory vents overnight. Patient denies any new respiratory complaints. Admits good compliance with BiPAP, tolerated well Pulmonology Exam Inpatient Vital signs and Labs for Last 24 Hours: Temp Pulse Resp BP Pulse Ox O2 Del Method O2 Flow Rate 98.6 F 88 21 120/58 L 92 L Nasal Cannula 2 07/15/24 07:55 07/15/24 06:00 07/15/24 06:00 07/15/24 06:00 07/15/24 06:12 07/15/24 08:15 07/15/24 08:15 FiO2 40 07/15/24 02:13 Laboratory Results - last 24 hr 07/14/24 07:23: Hepatitis C Antibody Non reactive 07/14/24 10:30: VBG pH 7.36, VBG pCO2 58.6 H, VBG pO2 71.5 H, VBG HCO3 32.5 H, VBG Total CO2 34.3 H, VBG O2 Saturation 94.8 H, VBG Base Excess 7.1 H, VBG Lactic Acid 1.3 07/14/24 10:33: Troponin I < 0.01 07/14/24 13:19: Troponin I < 0.01 07/15/24 05:17: WBC 10.0 D, RBC 4.83, Hgb 13.6, Hct 42.8, MCV 88.6, MCH 28.2, MCHC 31.8, RDW 15.9, Plt Count 245, MPV 8.9, Neut % (Auto) 76.7, Lymph % (Auto) 15.4, Nobles % (Auto) 7.3, Eos % (Auto) 0.2, Baso % (Auto) 0.4, Neut # (Auto) 7.7, Lymph # (Auto) 1.5, Nobles # (Auto) 0.7, Eos # (Auto) 0.0, Baso # (Auto) 0.0, Sodium 133 L, Potassium 4.3, Chloride 95 L, Carbon Dioxide 35 H, Anion Gap 7.3, BUN 19 H D, Creatinine 0.70, Estimated Creat Clear 88, Estimated GFR 88, Est GFR ( Amer) 106, Glucose 118 H, Calcium 8.9, Total Bilirubin 0.6, AST 27, ALT 22, Alkaline Phosphatase 93, Total Protein 7.1, Albumin 3.7, Globulin 3.4 H, Albumin/Globulin Ratio 1.1 Temp Pulse Resp BP Pulse Ox O2 Del Method O2 Flow Rate 97.8 F 79 18 161/93 H 91 L BiPAP 2 07/14/24 09:31 07/14/24 09:31 07/14/24 09:31 07/14/24 09:31 07/14/24 09:30 07/14/24 09:31 07/14/24 06:57 FiO2 30 07/14/24 09:05 Laboratory Results - last 24 hr 07/14/24 07:18: VBG pH 7.36, VBG pCO2 59.4 H, VBG pO2 46.5 H, VBG HCO3 32.4 H, VBG Total CO2 34.3 H, VBG O2 Saturation 83.9 H, VBG Base Excess 6.9 H, VBG Lactic Acid 1.2 07/14/24 07:23: WBC 7.5, RBC 5.01, Hgb 14.1, Hct 44.1, MCV 88.1, MCH 28.2, MCHC 32.0, RDW 15.8, Plt Count 245, MPV 9.0, Neut % (Auto) 74.4, Lymph % (Auto) 17.6, Nobles % (Auto) 5.9, Eos % (Auto) 1.1, Baso % (Auto) 1.0, Neut # (Auto) 5.6, Lymph # (Auto) 1.3, Nobles # (Auto) 0.4, Eos # (Auto) 0.1, Baso # (Auto) 0.1, D-Dimer 0.59 H, Sodium 137, Potassium 4.2, Chloride 98, Carbon Dioxide 39 H, Anion Gap 4.2 L, BUN 13, Creatinine 0.70, Estimated Creat Clear 91, Estimated GFR 88, Est GFR ( Amer) 106, Glucose 100, Calcium 8.9, Total Bilirubin 0.8, AST 31, ALT 25, Alkaline Phosphatase 106, Troponin I < 0.01, NT-Pro-B Natriuret Pep 61.0, Total Protein 7.5, Albumin 3.9, Globulin 3.6 H, Albumin/Globulin Ratio 1.1, SARS-CoV-2 (PCR) Not detected, HIV 1&2 Antibody Rapid Nonreactive, Influenza A Untype (PCR) Not detected, Influenza Type B (PCR) Not detected 07/14/24 08:30: VBG pH 7.30 L, VBG pCO2 76.2 H, VBG pO2 43.4 H, VBG HCO3 36.3 H, VBG Total CO2 38.7 H, VBG O2 Saturation 78.1 H, VBG Base Excess 9.8 H, VBG Lactic Acid 1.1 I & O for Labs for Last 24 Hours: Intake & Output 07/12/24 07/13/24 07/14/24 07/15/24 23:59 23:59 23:59 23:59 Intake Total 750 / 950 200 / 200 Output Total 1400 / 2000 1500 / 1500 Balance -650 / -1050 -1300 / -1300 Weight 388 lb 2 oz 388 lb 11.2 oz Intake & Output 07/11/24 07/12/24 07/13/24 07/14/24 23:59 23:59 23:59 23:59 Weight 385 lb Constitutional: Present severe distress Head: Present normocephalic and atraumatic ENT: Present normal exam, normal oropharynx and mucous membranes moist Neck: Present normal inspection and full ROM Respiratory: Present respiratory distress, diminished air movement and able to speak in complete sentences; Absent prolonged expiratory phase or wheezes Cardiac: Present S1/S2, Tachycardia and radial pulses present GI: Present soft and distention; Absent tenderness or guarding Rectal (female): Present deferred (female): Present deferred Skin: Present intact and rash; Absent cyanosis or jaundice Neuro: Present alert, awake and oriented x 3 Extremities: Present normal inspection and edema; Absent clubbing or cyanosis Psychiatric: Present normal affect and cooperative Assessment and Plan *Assessment and plan (1) Acute and chronic respiratory failure with hypercapnia: Status: Acute Category: Medical Code(s): J96.22 - Acute and chronic respiratory failure with hypercapnia (2) Pulmonary emphysema: Status: Acute Category: Medical Code(s): J43.9 - Emphysema, unspecified (3) NIKKI (obstructive sleep apnea): Status: Acute Category: Medical Code(s): G47.33 - Obstructive sleep apnea (adult) (pediatric) Plan Ms. Reich is a 53-year-old female smoker greater than 10-pnxi-hlnc smoking history. Pulmonary emphysema asthma history currently on triple inhaler therapy last seen in the hospital March 2024 with worsening respiratory distress discharged home on prednisone presented to the ER with worsening respiratory distress and pulmonary was called for further evaluation and management. Denies any sick contacts but denies any worsening cough/productive phlegm/worsening wheezing. Patient had a polysomnography testing on 07/03/24 showed severe sleep apnea with AHI of 82.6, titration study performed with recommendations of BiPAP therapy at 17/07 with oxygen supplementation at 4 L. Chest x-ray upon admission no dense consolidative airspace changes noted. Concerning findings for volume overload. Afebrile. Hemodynamically stable. No evidence of leukocytosis. Blood gas upon admission showed chronic hypercarbic respiratory failure, slightly worsening now on BiPAP therapy. Blood gas 2 hours post noninvasive ventilator therapy showed improvement consistent with chronic hypercarbic respiratory failure, BiPAP eventually discontinued. Interval update: Patient used BiPAP overnight. Admits good tolerance. No acute events. Plan: Continue nasal oxygen supplementation to maintain O2 sat goal of 90% and above while awake Continue Trelegy 100 inhaler along with DuoNebs 4 times daily as needed Continue BiPAP therapy at night for her severe sleep apnea at with 4 L nasal cannula oxygen supplementation No need for steroids or antibiotics at this point of time Volume optimization as per primary team. Chest x-ray concerning for congestion/volume overload. # Thank you for involving pulmonary in this patient care. Will continue to follow.
[2024-07-15] MEDS: NICOTINE 21MG/24HR PATCH 21 MG TD (10:12)
--- NOTE | 2024-07-15 10:23 | PC.NURSE ---
RESP CARE NOTE: Per Dr Fan, Bipap settings should be changed to 24/14 cmH2O for sleep. Will continue to monitor patient.
--- NOTE | 2024-07-15 10:49 | CARE MANAGER ---
Patient admitted with respiratory failure r/t NIKKI. Planned for discharge home today with bi-pap. Patient Choice verbal consent for [facility].
--- NOTE | 2024-07-15 11:01 | P.DS_ITS ---
General Admission date:: 07/14/24 Discharge date: 07/15/24 HPI HPI HPI: Edith Reich is a 53-year-old female with a medical history significant for asthma, emphysema (on home O2 2 L at night), suspected sleep apnea, HFpEF, obesity who presents with worsening somnolence over the past 2 days. Patient states she traveled to [place] with family this weekend, however was a lot more somnolent than normal. On her car ride back home, patient was sleeping throughout. This morning, boyfriend noticed patient did not wake up normally, very somnolent, confused he called EMS. On arrival, patient was waxing and waning in mentation, somnolent. Initial VBG showed chronic hypercarbia, but on reevaluation with patient more somnolent VBG pH 7.3, pCO2 76.2. She was given breathing treatments, steroids, and placed on BiPAP. Case was discussed with ED provider and decision was made to admit patient for acute on chronic hypercarbic respiratory failure secondary to suspected sleep apnea, asthma exacerbation. Hospital Course Hospital Course Hospital Course: Edith Reich is a 53-year-old female with a medical history significant for asthma, emphysema (on home O2 2 L at night), suspected sleep apnea, HFpEF, obesity who presents with worsening somnolence over the past 2 days. Patient states she traveled to [place] with family this weekend, however was a lot more somnolent than normal. On her car ride back home, patient was sleeping throughout. This morning, boyfriend noticed patient did not wake up normally, very somnolent, confused he called EMS. Of note, patient has recently had sleep study and was actually approved for BiPAP today after admission. On arrival, patient was waxing and waning in mentation, somnolent. Initial VBG showed chronic hypercarbia, but on reevaluation with patient more somnolent VBG pH 7.3, pCO2 76.2. She was given breathing treatments, steroids, and placed on BiPAP. Case was discussed with ED provider and decision was made to admit patient for acute on chronic hypercarbic respiratory failure secondary to suspected sleep apnea, asthma exacerbation. Improved with wearing BiPAP. Will discharge home with BiPAP. Problems addressed as follows: #Acute hypercarbic respiratory failure #Obstructive sleep apnea #Asthma, emphysema ? Longstanding history of intermittent fatigue, daytime somnolence. Has had home sleep studies in the past, but most recent study on 07/03/2024 showed severe sleep apnea with AHI of 82.6. Titration study performed with recommendation of BiPAP therapy with oxygen supplementation at 4 L. Plan to continue BiPAP therapy given her response during admission. Improved mentation. States she is feeling better than she has in some time. Will continue with settings of with 4 L nasal cannula oxygen supplementation. Continue DuoNebs as needed. Trelegy 100 inhaler daily. CXR did not reveal acute opacities, suggested mild edema. However, BNP normal. #HFpEF ? Resumed home Bumex 2 mg twice daily, Farxiga 10 mg, spironolactone 25 mg. Does not look like exacerbation. Independent review of CXR is more consistent with emphysematous changes rather than pulmonary edema, also seen on previous x- rays. BNP also normal on admission. Extensive discussion about patient's needs. Case discussed with pulmonology on day of discharge. Total time spent on discharge 32 minutes in counseling, documentation, chart review, and direct care with patient. Exam Data for Last 24 hours Vital signs and Labs for Last 24 Hours: Temp Pulse Resp BP Pulse Ox O2 Del Method O2 Flow Rate 98.6 F 100 H 20 145/64 H 92 L Nasal Cannula 2 07/15/24 07:55 07/15/24 08:00 07/15/24 08:00 07/15/24 08:00 07/15/24 08:00 07/15/24 09:10 07/15/24 09:10 FiO2 40 07/15/24 02:13 Laboratory Results - last 24 hr 07/14/24 07:23: Hepatitis C Antibody Non reactive 07/14/24 10:33: Troponin I < 0.01 07/14/24 13:19: Troponin I < 0.01 07/15/24 05:17: WBC 10.0 D, RBC 4.83, Hgb 13.6, Hct 42.8, MCV 88.6, MCH 28.2, MCHC 31.8, RDW 15.9, Plt Count 245, MPV 8.9, Neut % (Auto) 76.7, Lymph % (Auto) 15.4, [place] % (Auto) 7.3, Eos % (Auto) 0.2, Baso % (Auto) 0.4, Neut # (Auto) 7.7, Lymph # (Auto) 1.5, [place] # (Auto) 0.7, Eos # (Auto) 0.0, Baso # (Auto) 0.0, Sodium 133 L, Potassium 4.3, Chloride 95 L, Carbon Dioxide 35 H, Anion Gap 7.3, BUN 19 H D, Creatinine 0.70, Estimated Creat Clear 88, Estimated GFR 88, Est GFR ( Amer) 106, Glucose 118 H, Calcium 8.9, Total Bilirubin 0.6, AST 27, ALT 22, Alkaline Phosphatase 93, Total Protein 7.1, Albumin 3.7, Globulin 3.4 H, Albumin/Globulin Ratio 1.1 I & O for Last 24 hours: Intake & Output 07/12/24 07/13/24 07/14/24 07/15/24 23:59 23:59 23:59 23:59 Intake Total 750 / 950 200 / 200 Output Total 1400 / 2000 1500 / 1500 Balance -650 / -1050 -1300 / -1300 Weight 176.051 kg 176.311 kg Constitutional Constitutional: no acute distress, morbidly obese and cooperative *Routine HEENT Exam Head: Present normocephalic and atraumatic Eye: Present EOMI and PERRL ENT: Present mucous membranes moist *Routine Neck Exam Neck: Present supple *Routine Respiratory Exam Respiratory: Present CTA bilaterally; Absent accessory muscle use, wheezes or crackles *Routine Cardiovascular Exam Cardiovascular: Present RRR, Normal S1 and Normal S2; Absent murmur, gallop or rubs *Routine Abdominal Exam Abdominal: Present soft; Absent tenderness *Routine Rectal Exam Patient deferred: visual exam *Routine Exam Patient deferred: external exam *Routine Extremities Exam Extremities: Present pulses intact; Absent cyanosis or edema *Routine Skin Exam Skin: Present intact; Absent erythema or wounds *Routine Neurological Exam Neurological: Present alert, oriented X3 and moving all extremities; Absent altered mental status Routine Psychiatric Exam Psychiatric: Present cooperative Results Data Completed and Pending Labs on day of discharge: Labs from last 24 hours 07/15/24 07/14/24 07/14/24 05:17 13:19 10:33 WBC 10.0 D RBC 4.83 Hgb 13.6 Hct 42.8 MCV 88.6 MCH 28.2 MCHC 31.8 RDW 15.9 Plt Count 245 MPV 8.9 Neut % (Auto) 76.7 Lymph % (Auto) 15.4 [place] % (Auto) 7.3 Eos % (Auto) 0.2 Baso % (Auto) 0.4 Neut # (Auto) 7.7 Lymph # (Auto) 1.5 [place] # (Auto) 0.7 Eos # (Auto) 0.0 Baso # (Auto) 0.0 Sodium 133 L Potassium 4.3 Chloride 95 L Carbon Dioxide 35 H Anion Gap 7.3 BUN 19 H D Creatinine 0.70 Estimated Creat Clear 88 Estimated GFR 88 Est GFR ( Amer) 106 Glucose 118 H Calcium 8.9 Total Bilirubin 0.6 AST 27 ALT 22 Alkaline Phosphatase 93 Troponin I < 0.01 < 0.01 Total Protein 7.1 Albumin 3.7 Globulin 3.4 H Albumin/Globulin Ratio 1.1 Hepatitis C Antibody 07/14/24 07:23 WBC RBC Hgb Hct MCV MCH MCHC RDW Plt Count MPV Neut % (Auto) Lymph % (Auto) [place] % (Auto) Eos % (Auto) Baso % (Auto) Neut # (Auto) Lymph # (Auto) [place] # (Auto) Eos # (Auto) Baso # (Auto) Sodium Potassium Chloride Carbon Dioxide Anion Gap BUN Creatinine Estimated Creat Clear Estimated GFR Est GFR ( Amer) Glucose Calcium Total Bilirubin AST ALT Alkaline Phosphatase Troponin I Total Protein Albumin Globulin Albumin/Globulin Ratio Hepatitis C Antibody Non reactive DS: Diagnosis Discharge Diagnosis (1) Acute and chronic respiratory failure with hypercapnia: Status: Acute Code(s): J96.22 - Acute and chronic respiratory failure with hypercapnia (2) Pulmonary emphysema: Status: Acute Code(s): J43.9 - Emphysema, unspecified (3) NIKKI (obstructive sleep apnea): Status: Acute Code(s): G47.33 - Obstructive sleep apnea (adult) (pediatric) Meds Home Medications and Allergies Home Medications ?Medication ?Instructions ?Recorded ?Confirmed ?Type albuterol sulfate 90 mcg/actuation 2 puffs inhalation Q4HP PRN 01/16/22 07/14/24 History aerosol inhaler shortness of air ropinirole 0.25 mg tablet 0.25 - 0.5 mg PO HS 12/20/23 07/14/24 History spironolactone 25 mg tablet 25 mg PO BID 12/20/23 07/14/24 History celecoxib 200 mg capsule 200 mg PO BID 04/03/24 07/14/24 History sertraline 100 mg tablet 100 mg PO DAILY 04/03/24 07/14/24 History fluticasone fur. 100 mcg-umeclid 1 inh inhalation DAILY #1 ea 04/04/24 07/14/24 Rx 62.5 mcg-vilant 25 mcg inhalat.powder (Trelegy Ellipta) fluticasone propionate 50 2 spray intranasal DAILY 90 days 05/08/24 07/14/24 Rx mcg/actuation nasal #16 grams spray,suspension (Flonase Allergy Relief) bumetanide 2 mg tablet 2 mg PO BID #60 tabs 07/01/24 07/14/24 Rx dapagliflozin propanediol 10 mg 10 mg PO DAILY #30 tabs 07/03/24 07/14/24 Rx tablet (Farxiga) doxycycline hyclate 100 mg capsule 100 mg PO BID 07/14/24 07/14/24 History nicotine 21 mg/24 hr daily 21 mg transdermal DAILY #28 ea 07/15/24 Rx transdermal patch semaglutide (weight loss) 0.25 0.25 mg (0.5 mL) SQ Q7D #2 mL 07/17/24 Rx mg/0.5 mL subcutaneous pen injector (Seda) New Prescriptions to Start Prescriptions: Yaya Brumfield Allergies Allergy/AdvReac Type Severity Reaction Status Date / Time amoxicillin Allergy Unknown Verified 07/01/24 14:45 Discharge Plan Disposition Patient Disposition: Home, Self-Care Condition: Fair Follow up Plan Follow up with: To Fan MD [Physician] - 07/24/24 1:00 pm Terra Lebron APRN [Primary Care Provider] - 07/21/24 2:15 pm Prescriptions/Medication Reconciliation: New nicotine 21 mg/24 hr Patch 24 Hour 21 mg transdermal DAILY Qty: 28 1RF Continued fluticasone propionate [Flonase Allergy Relief] 50 mcg/actuation spray,suspension 2 spray intranasal DAILY 90 Days Qty: 16 2RF Rx Instructions: administer into each nostril spironolactone 25 mg tablet 25 mg PO BID ropinirole 0.25 mg tablet 0.25 - 0.5 mg PO HS bumetanide 2 mg tablet 2 mg PO BID Qty: 60 2RF dapagliflozin propanediol [Farxiga] 10 mg tablet 10 mg PO DAILY Qty: 30 5RF Wegovy 0.25 mg/0.5 mL pen injector 0.25 mg SQ Q7D Qty: 2 0RF Rx Instructions: administer weeks 1 through 4 of therapy doxycycline hyclate 100 mg capsule 100 mg PO BID Patient Comments: TAKE 1 CAPSULE BY MOUTH TWICE DAILY FOR 10 DAYS albuterol sulfate 6.7 GM HFA aerosol inhaler 2 puffs IH Q4HP PRN (Reason: shortness of air) celecoxib 200 mg capsule 200 mg PO BID sertraline 100 mg tablet 100 mg PO DAILY Trelegy Ellipta 100-62.5-25 mcg Blister With Device 1 inh inhalation DAILY Qty: 1 1RF Problem Reconciliation Problems Reviewed?: Yes Patient Discharge Instructions ACTIVITY: Continue current activity DIET: continue same diet Patient Instructions: Chronic Obstructive Pulmonary Disease (Alternative Therapy), DI for Chronic Obstructive Pulmonary Disease Print Language: Fijian Providers Primary Care Provider: Terra Lebron Admit Provider: Dereje Gaming Attending Provider: Dereje Gaming
--- NOTE | 2024-07-16 13:10 | SW/DCPLANNER ---
Hospital follow up phone call: patient stated that she is doing well and was able to return to work today. 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 Patient is aware of her follow up appointments. No further questions/needs at this time.
== END 2024-07-15 12:30 | disposition home or self-care (01) ==
LOC: ER 09:00 → 2ND 09:27
PROVIDERS: Admitting Provider Student in an Organized Health Care Education/Training Program; Emergency Provider Student in an Organized Health Care Education/Training Program; PCP Nurse Practitioner Family; Visit Provider Student in an Organized Health Care Education/Training Program
DX: J96.22 Acute and chronic respiratory failure with hypercapnia (principal); Z99.81 Dependence on supplemental oxygen; F17.210 Nicotine dependence, cigarettes, uncomplicated; E66.01 Morbid (severe) obesity due to excess calories; Z68.44 Body mass index [BMI] 60.0-69.9, adult; Z79.899 Other long term (current) drug therapy; J43.9 Emphysema, unspecified; G47.33 Obstructive sleep apnea (adult) (pediatric); I50.30 Unspecified diastolic (congestive) heart failure; I11.0 Hypertensive heart disease with heart failure; I27.20 Pulmonary hypertension, unspecified; L03.116 Cellulitis of left lower limb
CPT/HCPCS: 71045; 80053; 82803; 83880; 84484; 85025; 85378; 86803; 87389; 87636; 93005; 94640; 94660; 94761; 99291; G0378; J1100; J1650; J1939; J3475; J7620

== ENCOUNTER 2025-01-15 15:38 | Outpatient (CLI) | payer BC, SELFPAY ==
[2025-01-15 16:21] LABS: Basophils % 0.3 % (0.1-2.0); Eosinophils # 0.2 Kmm3 (0.0-0.4); Eosinophils % 2.7 % (0.1-12.0); Hematocrit 46.8 % (37.0-47.0); Hemoglobin 14.9 g/dL (12.2-16.2); Lymphocytes # 1.9 K/mm3 (0.7-4.5); Mean Corpuscular HGB Conc 31.8 g/dL (31.8-35.4); Mean Corpuscular Hemoglobin 27.4 pg (27.0-31.2); Mean Corpuscular Volume 86.2 fl (81-99); Mean Platelet Volume 11.5 fl (7.4-10.4); Monocytes # 0.9 K/mm3 (0.1-1.0); Monocytes % 9.6 % (1.7-9.3); Neutrophils # 5.7 K/mm3 (1.8-7.8); Neutrophils % 65.2 % (37.0-80.0); Nucleated Red Blood Cells # 0 10^3/uL; Nucleated Red Blood Cells % 0 %; Platelet Count 285 K/mm3 (142-424); Red Blood Count 5.43 M/mm3 (4.20-5.40); Red Cell Distribution Width 14.6 % (11.5-17.5); Red Cell Distribution Width-SD 46.3 fL; White Blood Count 8.8 K/mm3 (4.8-10.8)
[2025-01-15 17:31] LABS: Alanine Aminotransferase 22 U/L (12-78); Albumin Level 3.7 g/dl (3.5-5.0); Alkaline Phosphatase 124 U/L (38-126); Anion Gap 11.5 mEq/L (5-15); Aspartate Amino Transferase 27 U/L (14-36); Bilirubin,Direct 0.2 mg/dl (0.0-0.4); Bilirubin,Indirect 0.3 mg/dL (0.0-0.9); Bilirubin,Total 0.5 mg/dl (0.2-1.3); Bilirubin,Unconjugated 0.3 mg/dL (0.0-1.1); Blood Urea Nitrogen 14 mg/dl (7-17); Carbon Dioxide 34 mmol/L (22.0-30.0); Chloride 97 mmol/L (98-107); Chol/HDL Ratio 3.3 (1-3.5); Cholesterol 173 mg/dl (140-200); Estimated Glomerular Filt Rate 75 ml/min (>60); GFR (African American) 91 ML/MIN (>60); Glucose 75 mg/dl (74-100); HDL Cholesterol 52 mg/dl (40-60); Magnesium 2.1 mg/dl (1.6-2.3); Potassium 4.5 mmoL/L (3.5-5.1); Sodium 138 mmol/L (136-145); Total Protein,Serum 7.3 g/dl (6.3-8.2); Triglycerides 93 mg/dl (30-150); VLDL Cholesterol 19 mg/dL (0-40)
[2025-01-15 17:41] LABS: Direct LDL Cholesterol 88.72 mg/dL (100-129)
[2025-01-15 17:46] LABS: Free T4 (Free Thyroxine) 0.99 ng/dl (0.78-2.19)
[2025-01-15 18:02] LABS: Thyroid Stimulating Hormone 1.68 uIU/mL (0.465-4.68)
== END 2025-01-15 23:59 | disposition home or self-care (01) ==
LOC: LAB 15:38
PROVIDERS: PCP Nurse Practitioner Family; Visit Provider Nurse Practitioner
DX: I50.30 Unspecified diastolic (congestive) heart failure (principal); E66.01 Morbid (severe) obesity due to excess calories; Z68.43 Body mass index [BMI] 50.0-59.9, adult
CPT/HCPCS: 36415; 80048; 80061; 80076; 83735; 84439; 84443; 85025

== ENCOUNTER 2025-08-14 07:42 | Outpatient (CLI) | payer BC, SELFPAY ==
--- OUTSIDE RECORDS SUMMARY | 2024-03-24 11:00 | XMS_ITS ---
Author Organization [facility] Address [address] [facility] [address] [place], [place] [address] Care Team Providers Care Writer Editor Name Role Phone Terra Lebron Primary Care Provider [phone] TERRA LEBRON Unavailable Unavaila ble REASON FOR VISIT upper respiratory issues Encounters Encounter Location Date Provider Diagnosis [facility] [address] [place] [address] 03/24/2024 Terra Lebron Plan Of Treatment Next Appt Details Provider Name:Terra Redman ce, 08/31/2025 12:15:00 PM, [address], [address], [place], [place], [address], Progress Notes * Edith REICHDOB:[birth year] (54 yo F)Acc No.[id number]:03/24/2024 Progress Notes Patient: Oskar TOMASAKaitlin TREVIÑOissa Provider: KAREN Sultana :1970 A ge:53 Y S ex:Female Date:03/24/2024 Address:[address], [id number] Subjective: * Chief Complaints: * 1 . Upper respiratory issues. * Medical History: Objective: * Vitals: Assessment: Plan: * Treatment: * * Electronic signature of Radha Lebron APRN on 08/14/2025 at 07:46 AM EST Sign off status: Pending * Provider: KAREN Sultana Date: 0 03/24/2024 Generated for Pao Ponce/Daphne on: 1 10/14/2024 07:46 AM EST
--- OUTSIDE RECORDS SUMMARY | 2024-07-21 09:15 | XMS_ITS ---
Author Organization [facility] Address [address] [facility] [address] [place], [place] [address] Care Team Providers Care Black Ash Burner Operator Name Role Phone Terra Lebron Primary Care Provider TERRA LEBRON Unavailable Unavaila ble REASON FOR VISIT [facility] discharged on07/15/24 Encounters Encounter Location Date Provider Diagnosis [facility] [address] [place], [place] [address] 07/21/2024 Terra Lebron Plan Of Treatment Next Appt Details Provider Name:Terra Redman ce, 08/31/2025 12:15:00 PM, [address], [address], [place], [place], [address], Progress Notes * Edith REICHDOB:[birth year] (54 yo F)Acc No.[id number]:07/21/2024 HOSP F/U Patient: Oskar GLENYS Edith Provider: KAREN Sultana :1970 A ge:53 Y S ex:Female Date:07/21/2024 Address:[address], [id number] Subjective: * Chief Complaints: * 1 . [facility] discharged on07/15/24. * Medical History: Objective: * Vitals: Assessment: Plan: * Treatment: * * Electronic signature of Radha Lebron APRN on 08/14/2025 at 07:46 AM EST Sign off status: Pending * Provider: KAREN Sultana Date: Generated for Pao Ponce/Daphne on: 10/14/2024 07:46 AM EST
--- OUTSIDE RECORDS SUMMARY | 2024-07-28 09:45 | XMS_ITS ---
Author Organization [facility] Address [address] [place] [address] Care Team Providers Care Gauge Controller Name Role Phone Terra Lebron Primary Care Provider TERRA LEBRON Unavailable Unavaila ble REASON FOR VISIT 3 wk f/u Encounters Encounter Location Date Provider Diagnosis [facility] [address] [place] [address] 07/28/2024 Terra Lebron Plan Of Treatment Next Appt Details Provider Name:Terra Redman ce, 08/31/2025 12:15:00 PM, [address], [address], [place], [address], Progress Notes * Edith REICHDOB:[birth year] (54 yo F)Acc No.[id number]:07/28/2024 Progress Notes Patient: Oskar GLENYSKaitlinEdith Provider: KAREN Sultana :1970 A ge:53 Y S ex:Female Date:07/28/2024 Address:[address], [id number] Subjective: * Chief Complaints: * 1 . 3 wk f/u. * Medical History: Objective: * Vitals: Assessment: Plan: * Treatment: * * Electronic signature of Radha Lebron APRN on 08/14/2025 at 07:46 AM EST Sign off status: Pending * Provider: KAREN Sultana Date: 09/27/2023 Generated for Pao quezada/Kristen/Daphne on: 10/14/2024 07:46 AM EST
--- OUTSIDE RECORDS SUMMARY | 2024-12-27 16:30 | XMS_ITS ---
Author Organization [facility] Address [address] [facility] [address] [place] [address] Care Team Providers Care Arboriculture Instructor Name Role Phone Terra Lebron Primary Care Provider [phone] TERRA LEBRON Unavailable Unavaila ble Migration, Provider Unavailable Unavailable Allergies Allergen (clinical drug ingredient) Drug/Non Drug Allergy documented on EMR Reaction Allergy Type Onset Date Status amoxicillin Amoxicillin soa and hives Drug Allergy Active [facility] Conversion Encounter Medications Medication SIG (Take, Route, Frequency, Duration) Notes Start Date End Date Status Protonix 20 MG 1 tab(s) orally once a day Active Trelegy Ellipta 100 MCG-62.5 MCG-25 MCG/INH 1 PUFF(S) INHALED ONCE A DAY; Duration: 90 DAYS *Please review and pick correct strength-formulati on from [facility] options. If intended option is not shown, discontinue and re-order from Quick Search* Active Wellbutrin XL 150 MG 1 tab(s) orally every 24 hours; Duration: 30 days 07/07/2024 Active Lisinopril 10 MG 1 tab(s) orally once a day Active Farxiga 10 MG 1 tab(s) orally once a day Active Bumetanide 2 MG 1 tab(s) orally twice a day Active Celecoxib 200 MG 1 cap(s) orally 2 times a day; Duration: 90 days Active Spironolactone 25 MG 1 tab(s) orally twice a day; Duration: 90 days Active Gabapentin 100 MG 1-2 caps orally at bedtime for restless legs; Duration: 30 days 11/27/2024 Active Sertraline HCl 100 MG 1 tab(s) orally once a day; Duration: 30 day(s) Active NURTEC ODT 75 MG 1 TAB(S) ORALLY ONCE *Please review for potential replacement for e-prescription and drug interaction check* 11/27/2024 Active Ventolin HFA 108 (90 Base) MCG/ACT 2 puff(s) inhaled every 6 hours; Duration: 30 days Active Ipratropium-Albuterol 0.5-2.5 (3) MG/3ML 3 mL by nebulizer 4 times a day as needed for wheezing; Duration: 30 days Active Plaquenil 200 MG 1 tab(s) orally once a day; Duration: 30 days Active Encounters Encounter Location Date Provider Diagnosis [facility] [address] [facility] [address] [place] [address] 12/27/2024 Provider Migration Recurrent headache R51.9 and RLS (restless legs syndrome) G25.81 Assessments Encounter Date Diagnosis (ICD Code) Assessment Notes Treatment Notes Treatment Clinical Notes Section Notes 12/27/2024 Recurrent headache (ICD-10 - R51.9) 12/27/2024 RLS (restless legs syndrome) (ICD-10 - G25.81) Plan Of Treatment Medication Medication Name Sig Start Date Stop Date Notes Gabapentin 100 MG 1-2 caps orally at bedtime for restless legs; Duration: 30 days 11/27/2024 NURTEC ODT 75 MG 1 TAB(S) ORALLY ONCE 11/27/2024 *Please review for potential replacement for e-prescription and drug interaction check* Next Appt Details Provider Name:Terra Redman ce, 08/31/2025 12:15:00 PM, [address] [facility], [address], [place], [address], Progress Notes * Edith REICHDOB:[birth year] (54 yo F)Acc No.[id number]:12/27/2024 Patient: Oskar Edith VERONICA Provider: Maikol palacios Migration :1970 A ge:54 Y S ex:Female Date:12/27/2024 Address:[address] [place] [address] , [place], [id number] Pcp:Terra Lebron Subjective: * Chief Complaints: * [facility] . [facility] * Medical History: * Medications: T aking Bumetanide 2 MG Tablet 1 tab(s) orally twice a day , Taking Farxiga 10 MG Tablet 1 tab(s) orally once a day , Taking Lisinopril 10 MG Tablet 1 tab(s) orally once a day , Taking Protonix 20 MG Tablet Delayed Release 1 tab(s) orally once a day , Taking Wellbutrin XL 150 MG Tablet Extended Release 24 Hour 1 tab(s) orally every 24 hours , Taking Trelegy Ellipta 100 MCG-62.5 MCG-25 MCG/INH POWDER 1 PUFF(S) INHALED ONCE A DAY , Notes to Pharmacist: *Please review and pick correct strength-formulation from [facility] options. If intended option is not shown, discontinue and re-order from Quick Search*, Taking Ipratropium-Albuterol 0.5- 2.5 (3) MG/3ML Solution 3 mL by nebulizer 4 times a day as needed for wheezing , Taking Ventolin HFA 108 (90 Base) MCG/ACT Aerosol Solution 2 puff(s) inhaled every 6 hours , Taking Plaquenil 200 MG Tablet 1 tab(s) orally once a day , Taking Sertraline HCl 100 MG Tablet 1 tab(s) orally once a day , Taking Spironolactone 25 MG Tablet 1 tab(s) orally twice a day , Taking Celecoxib 200 MG Capsule 1 cap(s) orally 2 times a day * Allergies: A moxicillin: soa and hives - Allergy. Objective: * Vitals: Assessment: * Assessment: 1. R ecurrent headache - R51.9 (Primary) 2 . R LS (restless legs syndrome) - G25.81 Plan: * Treatment: 2. R LS (restless legs syndrome) Start Gabapentin Capsule, 100 MG, 1-2 caps, orally, at bedtime for restless legs, 30 days, 60, Refills 1. * * Electronic signature of Prov ider Migration on 08/14/2025 at 07:45 AM EST Sign off status: Pending * Provider: Maikol palacios Migration Date: 0 12/27/2024 Generated for Pao quezada/Kristen/Daphne on: 1 10/14/2024 07:45 AM EST
--- OUTSIDE RECORDS SUMMARY | 2025-08-12 08:26 | XMS_ITS ---
Author Organization [facility] Address [address] [place], [place] [address] Care Team Providers Care Can Crimper Name Role Phone Terra Lebron Primary Care Provider [phone] TERRA LEBRON Unavailable Unavaila ble Encounters Encounter Location Date Provider Diagnosis [facility] [address] [place], [place] [address] 08/12/2025 Terra Lebron Unspecified diastoli c heart failure I50.30 ; SLE (systemic lupus erythematosus related syndrome) M32.9 ; RLS (restless legs syndrome) G25.81 ; Dysuria R30.0 and Muscle cramps R25.2 Assessments Encounter Date Diagnosis (ICD Code) Assessment Notes Treatment Notes Treatment Clinical Notes Section Notes 08/12/2025 Unspecified diastolic heart failure (ICD-10 - I50.30) 08/12/2025 SLE (systemic lupus erythematosus related syndrome) (ICD-10 - M32.9) 08/12/2025 RLS (restless legs syndrome) (ICD-10 - G25.81) 08/12/2025 Dysuria (ICD-10 - R30.0) 08/12/2025 Muscle cramps (ICD-10 - R25.2) Plan Of Treatment Pending Test Test Name Order Date M-Complete Blood Count Auto Diff 025 M-Urinalysis and Microscopic 08/12/2025 M-Creatine Kinase 08/12/2025 M-Comprehensive Metabolic Panel 08/12/20 25 M-Hemoglobin A1C 08/12/2025 M-Magnesium 08/12/2025 M-Ferritin 08/12/2025 M-Lipid Panel 08/12/2025 M-Thyroid Stimulating Hormone 08/12/2025 M-Vitamin B12 08/12/2025 M-Vitamin D 25 Hydroxy 08/12/2025 M-Folate 08/12/2025 M-Urine Culture 08/12/2025 Next Appt Details Provider Name:Terra Redman ce, 08/31/2025 12:15:00 PM, [address], [address], [place], [address], Progress Notes * Edith REICHDOB:[birth year] (54 yo F)Acc No.[id number]:08/12/2025 Patient: Edith MITCHELL :1970 A ge:54 Y S ex:Female Address:[address] [place] [address] , [place], [address] Subjective: * Chief Complaints: * * Medical History: * Surgical History: * Hospitalization/Major Diagno stic Procedure: * Medications: Objective: * Vitals: * Physical Examination: Assessment: * Assessment: 1. U nspecified diastolic heart failure - I50.30 (Primary) 2 . S LE (systemic lupus erythematosus related syndrome) - M32.9 3 . R LS (restless legs syndrome) - G25.81 4 . D ysuria - R30.0 5 . M uscle cramps - R25.2? Plan: * Treatment: 2. S LE (systemic lupus erythematosus related syndrome) L AB: M-Complete Blood Count Auto Diff L AB: M-Comprehensive Metabolic Panel L AB: M-Hemoglobin A1C L AB: M-Magnesium L AB: M-Ferritin L AB: M-Lipid Panel L AB: M-Thyroid Stimulating Hormone L AB: M-Vitamin B12 L AB: M-Vitamin D 25 Hydroxy L AB: M-Folate 3. R LS (restless legs syndrome) L AB: M-Complete Blood Count Auto Diff L AB: M-Comprehensive Metabolic Panel L AB: M-Hemoglobin A1C L AB: M-Magnesium L AB: M-Ferritin L AB: M-Lipid Panel L AB: M-Thyroid Stimulating Hormone L AB: M-Vitamin B12 L AB: M-Vitamin D 25 Hydroxy L AB: M-Folate 4. D ysuria L AB: M-Urinalysis and Microscopic L AB: M-Urine Culture 5. M uscle cramps L AB: M-Complete Blood Count Auto Diff L AB: M-Creatine Kinase L AB: M-Comprehensive Metabolic Panel L AB: M-Hemoglobin A1C L AB: M-Magnesium L AB: M-Ferritin L AB: M-Lipid Panel L AB: M-Thyroid Stimulating Hormone L AB: M-Vitamin B12 L AB: M-Vitamin D 25 Hydroxy L AB: M-Folate * Procedure Codes: * true * Date: Generated for Pao quezada/Kristen/Daphne on: 10/14/2024 07:46 AM EST
--- OUTSIDE RECORDS SUMMARY | 2025-08-14 07:46 | XMS_ITS | Referral Summary ---
Author Organization [employer] ([place], [place], [place], [place], [place]) Address [address] [place] [address] Care Team Providers Care Automation Manager Name Role Phone Unavailable Primary Care Provider Unavailabl e Social History Tobacco Use Types Packs/Day Years Used Date Smoking Tobacco: Never Assessed Comments Unknown Sex and Gender Information Value Date Recorded Sex Assigned at Not on file Legal Sex Female 7:01 PM CDT Gender Identity Not on file Sexual Orientation Not on file Plan of Treatment Not on file
--- OUTSIDE RECORDS SUMMARY | 2025-08-14 07:46 | XMS_ITS | Patient Health Record ---
Author Organization [facility] Address [address] [place] [address] Care Team Providers Care Hospital Unit Coordinator Name Role Phone Terra Lebron Primary Care Provider [phone] TERRA LEBRON Unavailable Unavaila ble Migration, Provider Unavailable Unavailable Allergies Allergen (clinical drug ingredient) Drug/Non Drug Allergy documented on EMR Reaction Allergy Type Onset Date Status amoxicillin Amoxicillin soa and hives Drug Allergy Active Results Component Value Reference Range Notes COMPREHENSIVE METABOLIC PANE L (14374) Reviewed date:12/01/2024 10:13:46 AM Interpretation: Performing Lab:CB, [facility] Ifvg5403 [facility], [facility] CitiesJgerEH[address] Amilcar Potter Notes/Report: NON-FASTING; NON-FASTING; NON-FASTING; NON-FASTING; NON-FAST GLUCOSE 96 65-99 mg/dL Fasting reference interval UREA NITROGEN (BUN) 11 7-25 mg/dL CREATININE 0.74 0.50-1.03 mg/dL EGFR 97 > OR = 60 mL/min/1.73m2 BUN/CREATININE RATIO SEE NOTE: 6-22 (calc) Not Reported: BUN and Creatinine are within reference range. SODIUM 139 135-146 mmol/L POTASSIUM 4.2 3.5-5.3 mmol/L CHLORIDE 99 98-110 mmol/L CARBON DIOXIDE 32 20-32 mmol/L CALCIUM 9.1 8.6-10.4 mg/dL PROTEIN, TOTAL 7.5 6.1-8.1 g/dL ALBUMIN 4.1 3.6-5.1 g/dL GLOBULIN 3.4 1.9-3.7 g/dL (calc) ALBUMIN/GLOBULIN RATIO 1.2 1.0-2.5 (calc) BILIRUBIN, TOTAL 0.6 0.2-1.2 mg/dL ALKALINE PHOSPHATASE 116 37-153 U/L AST 15 10-35 U/L ALT 13 6-29 U/L VITAMIN B12 (927) Reviewed date:12/01/2024 10:13:47 AM Interpretation: Performing Lab:[facility] [employer], Imagineer SystemsGygoSA[address] Amilcar Potter Notes/Report: NON-FASTING; NON-FASTING; NON-FASTING; NON-FASTING; NON-FAST VITAMIN B12 919 972-1790 pg/mL Please Note: Although the reference range for vitamin B12 is 200-1100 pg/mL, it has been reported that between 5 and 10% of patients with values between 200 and 400 pg/mL may experience neuropsychiatric and hematologic abnormalities due to occult B12 deficiency; less than 1% of patients with values above 400 pg/mL will have symptoms. MAGNESIUM (622) Reviewed date:12/01/2024 10:13:47 AM Interpretation: Performing Lab:[facility] [employer], PixleeOmohTR[address] Amilcar Potter Notes/Report: NON-FASTING; NON-FASTING; NON-FASTING; NON-FASTING; NON-FAST MAGNESIUM 2.1 1.5-2.5 mg/dL CBC (INCLUDES DIFF/PLT) (639 9) Reviewed date:12/01/2024 10:13:47 AM Interpretation: Performing Lab:[facility] [employer], Imagineer SystemsEdkmRI[address] Amilcar Potter Notes/Report: NON-FASTING; NON-FASTING; NON-FASTING; NON-FASTING; NON-FAST WHITE BLOOD CELL COUNT 10.8 3.8-10.8 Thousand/ uL RED BLOOD CELL COUNT 5.60 3.80-5.10 Million/uL HEMOGLOBIN 15.3 11.7-15.5 g/dL HEMATOCRIT 47.7 35.0-45.0 % MCV 85.2 80.0-100.0 fL MCH 27.3 27.0-33.0 pg MCHC 32.1 32.0-36.0 g/dL red cell parameters and the patient's clinical condition. value (in the range of 30 to 32 g/dL) is most likely not clinically significant; however, it should be interpreted with caution in correlation with other For adults, a slight decrease in the calculated MCHC RDW 14.5 11.0-15.0 % PLATELET COUNT 308 140-400 Thousand/uL MPV 11.9 7.5-12.5 fL ABSOLUTE NEUTROPHILS 8219 1803-5637 cells/uL ABSOLUTE LYMPHOCYTES 3224 654-2157 cells/uL ABSOLUTE MONOCYTES 691 200-950 cells/uL ABSOLUTE EOSINOPHILS 140 15-500 cells/uL ABSOLUTE BASOPHILS 32 0-200 cells/uL NEUTROPHILS 76.1 LYMPHOCYTES 15.9 MONOCYTES 6.4 EOSINOPHILS 1.3 BASOPHILS 0.3 SED RATE BY MODIFIED WESTERG AYALA (809) Reviewed date:12/01/2024 10:13:47 AM Interpretation: Performing Lab:[facility], Imagineer SystemsGzpfAH[address] Amilcar Potter Notes/Report: NON-FASTING; NON-FASTING; NON-FASTING; NON-FASTING; NON-FAST SED RATE BY MODIFIED LIANNE 19 < OR = 30 mm/h C-REACTIVE PROTEIN (4420) Reviewed date:12/01/2024 10:13:47 AM Interpretation: Performing Lab:[facility], Imagineer SystemsXbweFZ[address] Amilcar Potter Notes/Report: NON-FASTING; NON-FASTING; NON-FASTING; NON-FASTING; NON-FAST C-REACTIVE PROTEIN 28.4 <8.0 mg/L HEMOGLOBIN A1c (496) Reviewed date:12/01/2024 10:13:47 AM Interpretation: Performing Lab:[facility] [address], PixleeKzwkGX[address] Amilcar Potter Notes/Report: NON-FASTING; NON-FASTING; NON-FASTING; NON-FASTING; NON-FAST HEMOGLOBIN A1c 6.1 <5.7 % of total Hgb prediabetes and should be confirmed with a follow-up test. For someone with known diabetes, a value <7% indicates that their diabetes is well controlled. A1c targets should be individualized based on duration of diabetes, age, comorbid conditions, and other considerations. This assay result is consistent with an increased risk of diabetes. Currently, no consensus exists regarding use of hemoglobin A1c for diagnosis of diabetes for children. For someone without known diabetes, a hemoglobin A1c value between 5.7% and 6.4% is consistent with TSH W/REFLEX TO FT4 (25131) Reviewed date:12/01/2024 10:13:47 AM Interpretation: Performing Lab:JOEY, [facility] Briscoee[address] [facility], Ozzy IxhlXW[address] Amilcar Potter Notes/Report: NON-FASTING; NON-FASTING; NON-FASTING; NON-FASTING; NON-FAST TSH W/REFLEX TO FT4 1.50 Third trimester 0.43-2.91 Reference Range > or = 20 Years 0.40-4.50 Ranges First trimester 0.26-2.66 Second trimester 0.55-2.73 Reason For Referral No Information Medications Medication SIG (Take, Route, Frequency, Duration) Notes Start Date End Date Status Ipratropium-Albuterol 0.5-2.5 (3) MG/3ML 3 mL by nebulizer 4 times a day as needed for wheezing; Duration: 30 days Active Ventolin HFA 108 (90 Base) MCG/ACT 2 puff(s) inhaled every 6 hours; Duration: 30 days Active NURTEC ODT 75 MG 1 TAB(S) ORALLY ONCE *Please review for potential replacement for e-prescription and drug interaction check* 11/27/2024 Active Bumetanide 2 MG 1 tab(s) orally twice a day Active Celecoxib 200 MG 1 cap(s) orally 2 times a day; Duration: 90 days Active Spironolactone 25 MG 1 tab(s) orally twice a day; Duration: 90 days Active Lisinopril 10 MG 1 tab(s) orally once a day Active Farxiga 10 MG 1 tab(s) orally once a day Active Gabapentin 100 MG 1-2 caps orally at bedtime for restless legs; Duration: 30 days 11/27/2024 Active Sertraline HCl 100 MG TAKE 1 TABLET BY MOUTH DAILY; Duration: 90 Active Plaquenil 200 MG 1 tab(s) orally once a day; Duration: 30 days Active Protonix 20 MG 1 tab(s) orally once a day Active Trelegy Ellipta 100 MCG-62.5 MCG-25 MCG/INH 1 PUFF(S) INHALED ONCE A DAY; Duration: 90 DAYS *Please review and pick correct strength-formulati on from [employer]orn[employer] options. If intended option is not shown, discontinue and re-order from Quick Search* Active Wellbutrin XL 150 MG 1 tab(s) orally every 24 hours; Duration: 30 days 07/07/2024 Active Social History Tobacco Use: Social History [...] Status W/U Status Risk Notes Problem Obesity (401824762) Obesity (E66.9) Active confirmed Problem Lymphedema (08483038) Lymphedema (I89.0) Active confirmed Problem Restless legs (12721180) RLS (restless legs syndrome) (G25.81) Active confirmed Problem Body mass index 40+ - severely obese (545241440) BMI 50.0-59.9, adult (Z68.43) Active confirmed Problem Exacerbation of intermittent asthma (254480416) Mild intermittent asthma with exacerbation (J45.21) Active confirmed Problem Moderate recurrent major depression (97711592) Moderate episode of recurrent major depressive disorder (F33.1) Active confirmed Problem Daytime somnolence (109137997617) Daytime somnolence (R40.0) Active confirmed Problem Systemic lupus erythematosus (85642875) SLE (systemic lupus erythematosus related syndrome) (M32.9) Active confirmed Problem Allergic rhinitis (56991561) Acute allergic rhinitis (J30.9) Active confirmed Problem Diastolic heart failure (820284916) Unspecified diastolic heart failure (I50.30) Active confirmed Problem Moderate major depression (311176) Moderate major depression (F32.1) Active confirmed Vital Signs Heart Rate 112 /min 11/27/2024 Temperature 98.3 degrees Fahrenheit 11/27/2024 Blood pressure diastolic 80 mm Hg 11/27/2024 Height 5 ft 6 in in 11/27/2024 Blood pressure systolic 140 mm Hg 11/27/2024 Weight 391 lbs 11/27/2024 BMI 63.1 kg/m2 11/27/2024 Encounters Encounter Location Date Provider Diagnosis [facility] [address] [facility] [address] [place], [place] [address] 12/27/2024 Provider Migration Recurrent headache R51.9 and RLS (restless legs syndrome) G25.81 [facility] [address] [facility] [address] [place], [place] [address] 11/27/2024 Terra Vi Unspecified diastoli c heart failure I50.30 ; Recurrent headache R51.9 ; SLE (systemic lupus erythematosus related syndrome) M32.9 ; BMI 50.0-59.9, adult Z68.43 ; Prediabetes R73.03 and RLS (restless legs syndrome) G25.81 [facility] [address] [facility] [address] [place] [address] 11/03/2024 Terra Vi [facility] [address] [facility] [address] [place] [address] 11/27/2024 Terra Vi [facility] [address] [address] 03/24/2025 Terra Vi [facility] [address] [facility] [address] [place] [address] 06/19/2025 Terra Vi [facility] [address] [facility] [address] [place] [address] 08/12/2025 Terra Vi Unspecified diastoli c heart failure I50.30 ; SLE (systemic lupus erythematosus related syndrome) M32.9 ; RLS (restless legs syndrome) G25.81 ; Dysuria R30.0 and Muscle cramps R25.2 Assessments Encounter Date Diagnosis (ICD Code) Assessment Notes Treatment Notes Treatment Clinical Notes Section Notes 11/27/2024 Unspecified diastolic heart failure (ICD-10 - I50.30) continue bumex, regular cardiology FU 11/27/2024 Recurrent headache (ICD-10 - R51.9) headaches sound migrainous in nature, samples of Nurtec provided. High risk also for vascular or inflammatory pathology as well. Rec labs today as noted. Return precautions reviewed. Consider imaging if Nurtec ineffective or with any progression of headache symptoms 12/27/2024 Recurrent headache (ICD-10 - R51.9) 08/12/2025 SLE (systemic lupus erythematosus related syndrome) (ICD-10 - M32.9) 08/12/2025 Unspecified diastolic heart failure (ICD-10 - I50.30) 08/12/2025 RLS (restless legs syndrome) (ICD-10 - G25.81) 11/27/2024 SLE (systemic lupus erythematosus related syndrome) (ICD-10 - M32.9) following with rheumatology 08/12/2025 Dysuria (ICD-10 - R30.0) 11/27/2024 BMI 50.0-59.9, adult (ICD-10 - Z68.43) down 5 pounds, complicates all aspects of care 08/12/2025 Muscle cramps (ICD-10 - R25.2) 11/27/2024 Prediabetes (ICD-10 - R73.03) on Jardiance for heart failure. Most recent A1C 6.2, repeat today 12/27/2024 RLS (restless legs syndrome) (ICD-10 - G25.81) 11/27/2024 RLS (restless legs syndrome) (ICD-10 - G25.81) trial of low dose gabapentin in place of requip as it may help with her generalized pain as well as RLS, possible side effects and controlled substance status reviewed Plan Of Treatment Pending Test Test Name Order Date Physical Therapy : Lymphedema 07/07/2024 M-Complete Blood Count Auto Diff 024 M-Complete Blood Count Auto Diff 025 M-Urinalysis and Microscopic 08/12/2025 M-Creatine Kinase 08/12/2025 M-Comprehensive Metabolic Panel 12/06/19 24 M-Comprehensive Metabolic Panel 08/12/20 25 M-Hemoglobin A1C 08/12/2025 M-Magnesium 08/12/2025 M-Ferritin 08/12/2025 M-Lipid Panel 08/12/2025 M-Thyroid Stimulating Hormone 08/12/2025 M-Vitamin B12 08/12/2025 M-Vitamin B12 12/06/2023 M-Vitamin D 25 Hydroxy 12/06/2023 M-Vitamin D 25 Hydroxy 08/12/2025 M-Folate 08/12/2025 M-Urine Culture 08/12/2025 CT Scan : Chest, Lung Cancer Screening 0 12/04/2022 Next Appt Details Provider Name:Terra Redman ce, 08/31/2025 12:15:00 PM, [address], [place], [address], Insurance Providers Payer Name Payer Address Payer Phone Subscriber Number Group Number Insured Name Patient Relationship to Insured Coverage Start Date Coverage End Date [facility] [address] [place] [address] [id number] Edith Ortiz Self - patient is the insured Medications Administered Medication Instructions Date of Administration Dosage Notes Dexamethasone 4mg Injection 12/18/2022 4 mg Medical (General) History Medical History History ICD Code Depression Arthritis Asthma Lupus - [facility] in [facility] (Dr. Tejinder yap) Edema/CHF Tobacco use Surgical History Surgery Date(Month/Year) Heart Cath 01/2022 Vaginal Ablation 12/2021 Tubal ligation 1992 Hospitalization History Reason Date(Month/Year) Low 02 states 03/2024 Childbirth x 2 1991 Heart Cath 01/2022
--- OUTSIDE RECORDS SUMMARY | 2025-08-14 07:46 | XMS_ITS ---
Author Organization Unknown ENCOUNTERS Encounter Performer Location Date Diagnosis Diagnosis Status Inpatient [facility] [address] [facility] [address] [place] [address] [id number] YANI Outpatient [facility] [address] [facility] [address] [place] [address] [id number] YANI Pre Admit [facility] [address] [facility] [address] [place] [address] [id number] Emergency [facility] [address] [facility] [address] [place] [address] [id number] A Outpatient [facility] [address] [facility] [address] [place] [address] [id number] YANI Emergency [facility] [address] [facility] [address] [place] [address] [id number] A Pre Admit [facility] [address] [facility] [address] [place] [address] [id number] Emergency [facility] [address] [facility] [address] [place] [address] [id number] YANI Emergency Jerry Triplett [facility] [address] [facility] [address] [place] [address] [id number] YANI Inpatient [facility] [address] [facility] [address] [place] [address] [id number] YANI Outpatient [facility] [address] [facility] [address] [place] [address] [id number] Emergency [facility] [address] [facility] [address] [place] [address] [id number] AIP Emergency Yaya Sanchez [facility] [address] [facility] [address] [place] [address] [id number] YANI Emergency [facility] [address] [facility] [address] [place] [address] [id number] YANI Emergency Irma Doe [facility] [address] [place] [address] [id number] YANI *Note: Encounters from your own facility or health system may be excluded. Allergies, Adverse Reactions, Alerts Allergen Type Severity Identification Date amoxicillin drug allergy 1 [id number] Medications Name Date Quantity Days Supplied [facility] Number
--- OUTSIDE RECORDS SUMMARY | 2025-08-14 07:46 | XMS_ITS | Clinical Summary ---
Author Organization [facility] Address [address] [place] [address] Care Team Providers Care Sheep Killer Name Role Phone Terra Lebron APRN Primary Care Provid er Allergies Active Allergy Reactions Criticality Noted Date Comments Amoxicillin Hives 01/29/2025 Medications lisinopril (PRINIVIL,ZESTRIL) 40 MG tablet 1 Active albuterol sulfate HFA 108 (90 Base) MCG/ACT inhaler 1 Active hydroxychloroquine (PLAQUENIL) 200 MG tablet 1 Active ASPIRIN 81 PO Take by mouth. Active budesonide-formote rol (SYMBICORT) 160-4.5 MCG/ACT inhaler Inhale 2 puffs 2 (Two) Times a Day. Active escitalopram (LEXAPRO) 10 MG tablet Take 1 tablet by mouth Daily. Active spironolactone (ALDACTONE) 25 MG tablet Take 2 tablets by mouth 2 (Two) Times a Day. Active celecoxib (CeleBREX) 200 MG capsule Take 1 capsule by mouth Daily. Active bumetanide (BUMEX) 2 MG tablet Every 12 (Twelve) Hours. Active dapagliflozin Propanediol (Farxiga) 10 MG tablet Take 10 mg by mouth Daily. Active gabapentin (NEURONTIN) 100 MG capsule 1-2 caps orally at bedtime for restless legs for 30 days 5 Active ipratropium-albute rol (DUO-NEB) 0.5-2.5 mg/3 ml nebulizer 3 mL by nebulizer 4 times a day as needed for wheezing for 30 days Active traMADol (ULTRAM) 50 MG tabletIndications: Osteoarthritis, unspecified osteoarthritis type, unspecified site Take 1 tablet by mouth Every 6 (Six) Hours As Needed for Moderate Pain. 120 tablet 4 Active Active Problems Problem Noted Date Diagnosed Date Encounter for medication monitoring 01/29/2025 Assessment & Plan (01/29/2025 11:15 AM EDT): Tramadol 50mg po q 6 hours prn pain Started 01/29/25 Controlled substance agreement reviewed and signed 01/29/25 UDS 01/29/25 PDMP reviewed High risk medication use 01/27/2025 Assessment & Plan (01/29/2025 11:12 AM EDT): Hydroxychloriquine We discussed the side effects of hydroxychloroquine including but not limited to GI upset, rash, photosensitivity, Hematologic and liver abnormalities and ocular abnormalities and need for frequent eye exam for toxicity monitoring Osteoarthritis 03/24/2024 Assessment & Plan (01/29/2025 11:14 AM EDT): 1. Tylenol PRN is ok as directed 2. Weight loss would be beneficial 3. She has taken/tried NSAIDS like celecoxib and meloxicam PRN 4. She has seen [facility] 5. She has had knee injections 6. Today she rates her pain as 9/10 in severity. 7. Her PCP prefers she does not take NSAIDs. 8. She has recently started on gabapentin with PCP. 9. She is willing to try tramadol. She reports being nervous about having an addictive personality. Other forms of systemic lupus erythematosus 09/2023 Assessment & Plan (01/29/2025 11:08 AM EDT): * 06/08/20: KELLY Direct +, DS DNA 19 (<9.0), TURBINE INSPECTOR normal, [place] normal, SCL 70 normal, SSA and SSB normal, Chromatin normal, Layla 1 normal, CBC was normal, TSH and T4 normal, CMP was fine * Medications/treatments/interventions tried include: Tylenol, Cephalexin, Plaquenil, meloxicam, She saw B[facility], knee injections, Celecoxib, Zoloft, Lexapro. 1. Prior to today we last saw her on 12/07/23. Prior to that visit we last saw her 04/20/22. 2. Continue Plaquenil 200 mg twice/day. Refill today 3. We gave her patient education handout to take home and review regarding oseoarthritis 4. Follow up in 4 months 5. Check labs KELLY positive 03/24/2024 Immunizations Immunization Administration Dates Next Due COVID-19 (UNSPECIFIED) 10/14/2020,09/27/2020 Influenza, Unspecified 07/25/2021 Family History Medical History Relation Name Comments Diabetes Mother Hypertension Mother Hypertension Other family history Hypertension Sister Relation Name Status Comments Mother Other family history Sister Social History Tobacco Use Types Packs/Day Years Used Date Smoking Tobacco: Every Day Cigarettes 1 36.9 Started: 1988 Passive Smoke Exposure: Current Smokeless Tobacco: Never Alcohol Use Standard Drinks/Week Comments Yes 0 (1 standard drink = 0.6 oz pur e alcohol) mixed drink. Comments Unknown Sex and Gender Information Value Date Recorded Sex Assigned at Not on file Legal Sex Female 12:58 PM EST Gender Identity Not on file Sexual Orientation Not on file Last Filed Vital Signs Vital Sign Reading Time Taken Comments Blood Pressure 130/72 01/29/2025 10:41 AM EDT Pulse 90 01/29/2025 10:41 AM EDT Temperature 36.3 C (97.3 F) 01/29/2025 10:41 AM EDT Respiratory Rate - - Oxygen Saturation - - Inhaled Oxygen Concentration - - Weight 181 kg (398 lb) 01/29/2025 10:41 AM EDT Height 171 cm (5' 7.32 ) 01/29/2025 10:41 AM EDT Body Mass Index 61.74 01/29/2025 10:41 AM EDT Plan of Treatment Upcoming Encounters Date Type Department Care Team (Late st Contact Info) Description 10/01/2025 11:15 AM EST Office Visit [facility] RHEUMATOLOGY [address] [address] Fabian Bateman DO [address] [address] Health Maintenance Due Date Last Done Comments Annual Gynecologic Pelvic and Breast Exam 1971 Pneumococcal Vaccine 50+ (1 of 2 - PCV) 1990 TDAP/TD VACCINES (1 - Tdap) 1990 PAP SMEAR 1992 MAMMOGRAM 2011 COLOGUARD 2016 COLON CANCER SCREENING 5 YEAR SIGMOIDOSCOPY 2016 COLONOSCOPY [address] CANCER SCREENING 2016 CT COLONOGRAPHY 2016 FECAL OCCULT BLOOD TEST 2016 FIT Testing (1 year) 2016 ANNUAL PHYSICAL 08/31/2021 HEPATITIS C SCREENING 08/31/2021 LUNG CANCER SCREENING 2021 ZOSTER VACCINE (1 of 2) 2021 INFLUENZA VACCINE 04/24/2025 07/25/2021 Insurance [facility] PPO Care Teams Sheep Killer Relationship Specialty Start Date End Date Terra Lebron APRN [address] [facility] [address] [place] [id number] PCP - General Family Medicine 01/29/25
--- OUTSIDE RECORDS SUMMARY | 2025-08-14 07:46 | XMS_ITS | Encounter Summary ---
Author Organization [employer] ([place], [place], [place], [place], [place]) Address [address] [place] [address] Care Team Providers Care Safety Aide Name Role Phone Unavailable Primary Care Provider Unavailabl e Encounter Details Date Type Department Care Team (Late st Contact Info) Description 03/15/2020 Transcribed Document [facility] Cardiology [address] [place] [address] [place] [address] [place] [address] [address] [place] [id number] Social History Tobacco Use Types Packs/Day Years Used Date Smoking Tobacco: Never Assessed Comments Unknown Sex and Gender Information Value Date Recorded Sex Assigned at Not on file Legal Sex Female 7:01 PM CDT Gender Identity Not on file Sexual Orientation Not on file documented as of this encounter Miscellaneous Notes * Cerner Conversion Note - Kelly Slade MD - 03/15/2020 1:20 PM EDT DATE OF SERVICE: This patient underwent an exercise stress test according to the usual [place] protocol. She exercised for a total of 1.4 minutes achieving a maximum workload of 4.1 METS and 77% of her maximal age predicted heart rate. While she had a proper hemodynamic response, blood pressure fuller to exercise, the patient clearly did not perform very well from the standpoint of the duration of the test and did not achieve a minimum 85% of maximal age predicted heart rate. Her stress test was terminated secondary to fatigue and dyspnea. IMPRESSION: 1. Very poor functional capacity. 2. Submaximal heart rate response to exercise. 3. Clinical correlation recommended. /[id number] MD AUNG Morales/MAGDALENA / AUNG / MODL /[id number] documented in this encounter Plan of Treatment Not on file documented as of this encounter Visit Diagnoses Not on filedocumented in this encounter
--- OUTSIDE RECORDS SUMMARY | 2025-08-14 07:46 | XMS_ITS | Encounter Summary ---
Author Organization [employer] ([place], [place], [place], [place], [place]) Address [address] [place] [address] Care Team Providers Care Study Hall Supervisor Name Role Phone Unavailable Primary Care Provider Unavailabl e Encounter Details Date Type Department Care Team (Late st Contact Info) Description 03/10/2020 Transcribed Document [facility] [place] Family Medicine Formerly [facility] [place] [address] ProviderKamryn MD [address] [place] [id number] Social History Tobacco Use Types Packs/Day Years Used Date Smoking Tobacco: Never Assessed Comments Unknown Sex and Gender Information Value Date Recorded Sex Assigned at Not on file Legal Sex Female 7:01 PM CDT Gender Identity Not on file Sexual Orientation Not on file documented as of this encounter Miscellaneous Notes * [employer]ner Conversion Note - Historical ProviderMD - 03/10/2020 1:50 PM CDT Height and Weight, Clinical Dosing Entered On: 03/10/2020 13:51 EDT Performed On: 03/10/2020 13:50 EDT by SENG GARDNER RN Height and Weight, Clinical Dosing Height Source : Measured Height Entry Format : [place] Height, Feet : 5 ft(Converted to: 152 cm, 60 Inch) Height, Inches : 7 Inch(Converted to: 0 ft 7 Inch, 17.78 cm) Clinical Height : 170.18 cm Weight Source : Standing scale Weight Entry Format : [place] Clinical Dosing Weight : 153.64 kg Weight, Pounds : 338 lb Body Surface Area (BSA) : 2.53 m2 Body Mass Index : 53.1 kg/m2 (>HHI) [place] Body Weight : 61 kg SENG GARDNER RN - 03/10/2020 13:50 EDT Electronically signed by Kian [facility] Conversion [employer] Furnace Installer Repairer Cerner at 01/10/2023 5:54 PM CDT documented in this encounter Plan of Treatment Not on file documented as of this encounter Visit Diagnoses Not on filedocumented in this encounter
--- OUTSIDE RECORDS SUMMARY | 2025-08-14 07:46 | XMS_ITS | Clinical Summary ---
Author Organization [employer] ([place], [place], [place], [place], [place]) Address [address] [place] [address] Care Team Providers Care Sales Incentive Analyst Name Role Phone Unavailable Primary Care Provider [...]
[2025-08-14 07:48] LABS: Microscopic, Urine URINE MICROSCOPIC (MICROSCOPIC)
[2025-08-14 08:10] LABS: Hematocrit 45.2 % (37.0-47.0); Hemoglobin 14.8 g/dL (12.2-16.2); Immature Granulocytes % 0.2 %; Mean Corpuscular HGB Conc 32.7 g/dL (31.8-35.4); Mean Corpuscular Hemoglobin 28.3 pg (27.0-31.2); Mean Corpuscular Volume 86.4 fl (81-99); Nucleated Red Blood Cells % 0 %; Platelet Count 247 K/mm3 (142-424); Red Blood Count 5.23 M/mm3 (4.20-5.40); Red Cell Distribution Width-SD 46.9 fL; White Blood Count 6.5 K/mm3 (4.8-10.8)
[2025-08-14 08:29] LABS: Hemoglobin A1C 6.1 % (4.0-6.0)
[2025-08-14 08:39] LABS: Alanine Aminotransferase 20 U/L (12-78); Albumin Level 4.1 g/dl (3.5-5.0); Albumin/Globulin Ratio 1.2 (1.1-1.8); Alkaline Phosphatase 157 U/L (38-126); Anion Gap 11.4 mEq/L (5-15); Aspartate Amino Transferase 24 U/L (14-36); Bilirubin,Total 0.6 mg/dl (0.2-1.3); Blood Urea Nitrogen 14 mg/dl (7-17); Calcium 9.6 mg/dl (8.4-10.2); Carbon Dioxide 29 mmol/L (22.0-30.0); Chloride 100 mmol/L (98-107); Cholesterol 147 mg/dl (140-200); Creatine Kinase 93 U/L (30-135); Creatinine,Serum 0.70 mg/dl (0.52-1.04); Estimated Glomerular Filt Rate 88 ml/min (>60); GFR (African American) 106 ML/MIN (>60); Globulin 3.4 g/dL (1.3-3.2); Glucose 94 mg/dl (74-100); HDL Cholesterol 51 mg/dl (40-60); Magnesium 2.2 mg/dl (1.6-2.3); Potassium 4.4 mmoL/L (3.5-5.1); Sodium 136 mmol/L (136-145); Total Protein,Serum 7.5 g/dl (6.3-8.2); Triglycerides 66 mg/dl (30-150)
[2025-08-14 08:56] LABS: 25-OH Vitamin D, Total 26.8 ng/mL (30-100)
[2025-08-14 09:00] LABS: Bilirubin,Urine Negative (Negative); Color,Urine YELLOW (Yellow); Glucose,Urine (UA) Negative (Negative); Ketones,Urine Negative (Negative); Leukocyte Esterase,Urine Negative (Negative); PH,Urine 6.0 (5.0-8.5); Protein,Urine Negative (Negative); Specific Gravity, Urine <= 1.005 (1.005-1.030); Urobilinogen,Urine 0.2 EU/dl (0.2)
[2025-08-14 09:16] LABS: Thyroid Stimulating Hormone 1.85 uIU/mL (0.465-4.68)
[2025-08-14 09:20] LABS: Ferritin 50.8 ng/ml (11.1-264)
[2025-08-14 09:35] LABS: Vitamin B12 512 pg/mL (239-931)
[2025-08-14 09:59] LABS: WBC,Urine Occasional #/hpf (0-3)
[2025-08-14 10:05] LABS: Folate 5.93 ng/mL
== END 2025-08-14 23:59 | disposition home or self-care (01) ==
LOC: LAB 07:44
PROVIDERS: PCP Nurse Practitioner Family; Visit Provider Nurse Practitioner Family
DX: I50.30 Unspecified diastolic (congestive) heart failure (principal); M32.9 Systemic lupus erythematosus, unspecified; G25.81 Restless legs syndrome; R30.0 Dysuria
CPT/HCPCS: 36415; 80053; 80061; 81001; 82306; 82550; 82607; 82728; 82746; 83036; 83735; 84443; 85025; 87086